=== PATIENT | male | born 1930 | race Caucasian/White ===

== ENCOUNTER → 2016-10-04 | Outpatient (CLI) | payer OTHER ==
[~2016-10-04] MED LIST: ACET-1138 PO; AMLO-110 PO; APR25 PO; ASPI325T39 PO; CRAN1CAP15 PO; ERGO500037 PO; FLAX100024 PO; FLUO0.0566 TOP; FRRG PO; LISI-729 PO; METO1TAB71 PO; MULT-506 PO; NITR0.4S SL; SIMV40TA2 PO; [UNRECOGNIZED DRUG - CODE] PO
[2016-10-04 14:45] LABS: HEMATOCRIT 34.1 % (42-52); MEAN CELL VOLUME 82.4 fL (80-100); MEAN CORPUSCULAR HEMOGLOBIN 27.5 pg (25-34); MEAN CORPUSCULAR HGB CONC 33.4 g/dl (32-36); MEAN PLATELET VOLUME 9.2 fL (7.4-10.4); PLATELET COUNT 181 K/uL (130-400); RED BLOOD COUNT 4.14 M/uL (4.7-6.1); WHITE BLOOD COUNT 8.46 K/uL (4.8-10.8)
[2016-10-04 15:07] LABS: ESTIMATED AVERAGE GLUCOSE 120 mg/dl; HA1C FLAG Normal (Normal)
[2016-10-04 15:52] LABS: URINE APPEARANCE CLOUDY (CLEAR); URINE BILIRUBIN NEG (NEG); URINE COLOR YELLOW; URINE EPITHELIAL CELL AUTO 0-5 /lpf (0-5); URINE NITRITE NEG (NEG); URINE SPECIFIC GRAVITY 1.013 (1.000-1.030); UROBILINOGEN NEG (NEG)
[2016-10-04 15:57] LABS: MANUAL MICROSCOPIC REQUIRED? NO; REVIEW REQ? NO
[2016-10-04 17:03] LABS: ALT/SGPT 27 U/L (12-78); BLOOD UREA NITROGEN 30 mg/dl (7-18); BUN/CREATININE RATIO 16.5 (10-20); CALCIUM 9.5 mg/dl (8.5-10.1); CARBON DIOXIDE 25 mmol/L (21-32); CHLORIDE 106 mmol/L (98-107); GLUCOSE 115 mg/dl (70-99); POTASSIUM 4.8 mmol/L (3.5-5.1); SODIUM 141 mmol/L (136-145)
[2016-10-04 17:10] LABS: ALB/GLOB RATIO 1.1 (0.9-2); ALKALINE PHOSPHATASE 74 U/L (45-117); AST/SGOT 13 U/L (15-37); CHOLESTEROL 202 mg/dl (0-200); CHOLESTEROL/HDL RATIO 3.2; HDL CHOLESTEROL 63 mg/dl; LDL CHOLESTEROL CALCULATED 82 mg/dl; TRIGLYCERIDES 283 mg/dl (0-150); VERY LOW DENSITY LIPOPROT CALC 57 mg/dl
[2016-10-04 17:44] LABS: URINE TOTAL PROTEIN < 5.0 mg/dl (0-11.9)
== END | disposition home or self-care (01) ==
LOC: C.LAB1850 13:34
PROVIDERS: ATTEND Internal Medicine
DX: I12.9 Hypertensive chronic kidney disease with stage 1 through stage 4 chronic kidney disease, or unspecified chronic kidney disease (principal); N18.3 Chronic kidney disease, stage 3 (moderate); D64.9 Anemia, unspecified; R80.9 Proteinuria, unspecified; E55.9 Vitamin D deficiency, unspecified; E78.5 Hyperlipidemia, unspecified; R73.09 Other abnormal glucose

== ENCOUNTER 2019-01-04 00:53 | Inpatient (IN) ==
[2019-01-04 02:01] LABS: Hematocrit (blood only) 24.1 % (42-52); Hemoglobin 7.9 g/dL (14.0-18.0); Mean Corpuscular Hgb Conc 32.8 g/dL (32-36); Mean Corpuscular Volume 82.5 fL (80-100); Platelet Count 154 K/uL (130-400); RDW Coefficient of Variation 15.1 % (11.5-14.5); RDW Standard Deviation 45.7 fL (36.4-46.3); Red Blood Count 2.92 M/uL (4.7-6.1); White Blood Count 13.48 K/uL (4.8-10.8)
[2019-01-04 02:24] LABS: Alanine Aminotransferase 26 U/L (12-78); Albumin Level 3.1 gm/dl (3.4-5.0); Aspartate Aminotransferase 46 U/L (15-37); Blood Urea Nitrogen 48 mg/dl (7-18); Calcium 8.6 mg/dl (8.5-10.1); Carbon Dioxide 18 mmol/L (21-32); Chloride 109 mmol/L (98-107); Creatinine Clr Calc Pharmacy 13.7 ml/min; Est GFR (African American) 14.3; Est GFR (Non-African American) 12.4; Glucose 185 mg/dl (70-99); Magnesium 2.5 mg/dl (1.8-2.4); Potassium 4.7 mmol/L (3.5-5.1); Sodium 135 mmol/L (136-145)
[2019-01-04] MEDS ORDERED: AZITHROMYCIN 250 MG TAB PO ONE (02:24)
[2019-01-04] MEDS ORDERED: cefTRIAXone SODIUM 1,000 MG/50 ML BAG IV STA (02:24)
[2019-01-04 02:26] LABS: Basophils # (auto) 0.01 K/uL (0-0.2); Basophils % (auto) 0.1 %; Eosinophils # (auto) 0.01 K/uL (0-0.5); Eosinophils % (auto) 0.1 %; Immature Granulocytes # (auto) 0.05 K/uL (0.00-0.02); Immature Granulocytes % (auto) 0.4 %; Lymphocytes # (auto) 0.58 K/uL (1.2-3.4); Lymphocytes % (auto) 4.3 %; Monocytes % (auto) 7.4 %; Neutrophils # (auto) 11.83 K/uL (1.4-6.5); Neutrophils % (auto) 87.7 %; Ovalocytes 1+; Spherocytes Occasional
[2019-01-04] MEDS ORDERED: SODIUM CHLORIDE 0.9% 1000ML 1,000 ML IV SCH (02:30)
[2019-01-04 02:33] LABS: Albumin Globulin Ratio 0.8 (0.9-2); Alkaline Phosphatase 95 U/L (45-117); Globulin 4.1 gm/dl (2.5-4.0); NT Pro B Type Natriuretic Pept > 35000 pg/ml (0-1800); Total Protein 7.2 gm/dl (6.4-8.2)
[2019-01-04] MEDS ORDERED: ASPIRIN 325 MG ECTAB PO STA (03:02)
[2019-01-04] MEDS ORDERED: ALUMINUM/MAGNESIUM SUSP 30 ML UDC PO PRN (04:48)
[2019-01-04] MEDS ORDERED: GLUCOSE 40% GEL 15 GM TUBE PO PRN (04:48)
[2019-01-04] MEDS ORDERED: POLYETHYLENE (MIRALAX) 17 GM PACK PO PRN (04:48)
[2019-01-04] MEDS ORDERED: GLUCAGON FOR INJ 1 MG VIAL SQ PRN (04:48)
[2019-01-04] MEDS ORDERED: ACETAMINOPHEN 325 MG TAB PO PRN (04:48)
[2019-01-04] MEDS ORDERED: DEXTROSE 50% 50 ML SYRINGE IV PRN (04:48)
[2019-01-04] MEDS ORDERED: NITROGLYCERIN SL 0.4 MG/TAB TAB SL PRN ×2 (04:48)
[2019-01-04] MEDS ORDERED: GLUCOSE 10 TABS/TUBE PO PRN (04:48)
[2019-01-04] MEDS ORDERED: ONDANSETRON INJ 2 MG/ML 2 ML VIAL IV PRN ×2 (04:48)
[2019-01-04] MEDS ORDERED: MAGNESIUM HYDROXIDE SUSP 30 ML UDC PO PRN (04:48)
[2019-01-04] MEDS ORDERED: ACETAMINOPHEN 1000 MG/100 ML IV IV PRN (04:48)
[2019-01-04] MEDS ORDERED: PIPERACILL/TAZOBAC CONSULT ACTIVE PRN (04:48)
[2019-01-04] MEDS ORDERED: CARBOHYDRATES FOR HYPOGLYCEMIA PO PRN (04:48)
[2019-01-04] MEDS ORDERED: PIPERACILLIN/TAZOBACTAM 3.375 GM in DEXTROSE 5% 100 ML IV SCH ×2 (06:00→16:00)
--- NOTE | 2019-01-04 06:21 | XRay Report ---
XR chest 2V routine CLINICAL HISTORY: sob, cough dyspnea COMPARISON STUDY: 07/28/2016 FINDINGS: Permanent bipolar cardiac pacemaker/fibrillator. Diffuse parenchymal infiltrative change ri ght and 2 masses extent left hemithorax. Diaphragms are smooth. Pulmonary apices are clear. IMPRESSION: Asymmetric pulmonary edema versus diffuse right lung infiltrate. The above report was generated using voice recognition software. It may contain grammatical, syntax or spelling errors. Electronically signed by: Harshil Goff M.D. 01/04/2019 6:19 AM
[2019-01-04 06:25] LABS: Estimated Average Glucose 103 mg/dl; Hemoglobin A1C 5.2 % (4.5-5.6)
--- NOTE | 2019-01-04 06:58 | History & Physical Report ---
Date of Service January 04, 2019 Assessment & Plan (1) Acute respiratory failure with hypoxia: Acute respiratory failure with hypoxia/multifocal pneumonia/possible aspiration- Zosyn 3.375 mg IV every 8 hours. Azithromycin 500 mg IV daily. Guaifenesin extended release 600 mg p.o. twice daily. Duonebs every 4 hours while awake and every 2 hours when necessary. Sputum Gram stain and culture. Nasal cannula 2 L oxygen, titrate to keep pulse ox greater than or equal to 94%. Pulmicort Respules 0.5 mg inhaled twice daily. Solu-Medrol 20 mg IV every 8 hours. Present on Admission?: Yes (2) Multifocal pneumonia: As above. 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 Troponin on admission 9.280. EKG with atrial paced rhythm. He was given aspirin 325 mg in the ED. Aspirin 81 mg p.o. daily. Metoprolol succinate 200 mg p.o. daily changing 100 mg p.o. twice daily with hold parameters. Amlodipine being decreased from 10 to 5 mg p.o. daily with hold parameters. Nitroglycerin sublingual as needed. Consult cardiology Present on Admission?: Yes (4) Pacemaker: As above. Present on Admission?: Yes (5) Acute kidney injury superimposed on chronic kidney disease: Creatinine 4.04 upon admission. Most recent creatinine from 08/25/2018 was 3.36. May be a cause of and caused by low hemoglobin. Order iron, B12 and folate studies. Order renal ultrasound. Consult nephrology. Present on Admission?: Yes (6) Hyperlipidemia LDL goal <70: Continue simvastatin 40 mg p.o. every evening Present on Admission?: Yes (7) Anemia: Hemoglobin 7.9 upon admission. Type and screen. Hemoccults. No signs of acute blood loss or chronic blood loss. May be an element of anemia chronic disease, secondary to kidney disease. Present on Admission?: Yes (8) Diabetes mellitus type 2 with complications: Patient does not appear to be on any active treatment at this time. Check hemoglobin A1c. Placed on Accu-Cheks before meals and at bedtime with NovoLog coverage per scale. Present on Admission?: Yes (9) Hypertension: See above. Present on Admission?: Yes History of Present Illness Chief Complaint: The patient presents to the emergency department with worsening shortness of breath over the past 3 days. Primary Care Provider: Raul Lemos MD The patient is an 88-year-old male with a PMH including CAD, status post ME, status post pacer for third-degree AV block, hypertension, CKD stage III, colon cancer, dyslipidemia, diabetes mellitus type 2 left total knee arthroplasty, who presents to the emergency department with progressively worsening shortness of breath over the past 3 days. Allergies Allergy/AdvReac Type Severity Reaction Status Date / Time morphine AdvReac Severe SOB, Verified 01/04/19 01:28 Respiratory distress Home Medications Home Medications Medication Instructions Recorded Confirmed Type amlodipine 10 mg PO DAILY 01/04/19 01/04/19 History cranberry conc-ascorbic acid 1 cap PO DAILY 01/04/19 01/04/19 History [Cranberry Plus Vitamin C] ergocalciferol (vitamin D2) 50,000 unit PO DIRECTED 01/04/19 01/04/19 History [Vitamin D2] ferrous gluconate 324 mg PO BIDM 01/04/19 01/04/19 History flaxseed oil 1,000 mg PO DAILY 01/04/19 01/04/19 History metoprolol succinate 200 mg PO DAILY 01/04/19 01/04/19 History multivitamin 1 tab PO DAILY 01/04/19 01/04/19 History nitroglycerin 0.4 mg SUBLINGUAL DIRECTED PRN 01/04/19 01/04/19 History simvastatin 40 mg PO PM 01/04/19 01/04/19 History Past Med/Surg History Medical History Pacemaker Arthritis Hyperlipidemia Hypertension Kidney stones Myocardial Infarction Surgical History History of left knee replacement (Resolved) History of cardiac cath Family History Other Family history non-contributory Social History Preferred Language: Pashto Communication Ability: Effective Marketing Representative Required: No Beliefs That Will Affect Care: None Current Living Situation: Spouse and Family Other Information That Helps Us Care for You: No Feels Safe at Home: Yes Safety Concerns: Feels Safe At This Time Smoking Status: Former smoker Hx Alcohol Use: Yes Hx Substance Use: No Review of Systems Review of Systems: The patient denies chest pain, palpitations, cough, lower extremity swelling, sore throat, fevers, chills, sweats, weight change, nausea, vomiting, diarrhea , constipation, abdominal pain, pelvic pain, blood in urine or stool, dysuria, urinary frequency or urgency, lightheadedness, dizziness, headache, loss of consciousness, rash, abnormal bruising or bleeding, imbalance, focal weakness, numbness or tingling in arms or legs, generalized arthralgias or myalgias, back or neck pain, or night sweats. The review of systems is otherwise negative other than for that already noted above, and at least 10 systems have been reviewed. Physical Exam Physical Exam: The patient is awake, alert and oriented 3, well developed and well nourished, normocephalic and atraumatic, lying in bed and in no acute distress. HEENT--PERRL, EOMI, mucous membranes and oropharynx dry. Neck--supple. No JVD. No bruits. Thyroid normal, trachea midline, no adenopathy. Heart--normal S1 and S2. No murmurs, rubs or gallops. Lungs--coarse breath sounds bilaterally with wheezes right greater than left. No respiratory distress, no accessory muscle use. Abdomen--normal bowel sounds and soft. Nontender. Nondistended. Extremities--no cyanosis or clubbing. No edema. There are good distal pulses b/l. Dermatologic--normal skin turgor, normal color, no abnormal lymph nodes, no rash. Neurologic--cranial nerves II through XII grossly intact. Rheumatologic--normal range of motion. Psychiatric--normal affect. Results & Data Vital Signs (Past 12 Hours) Vital Signs Temp Pulse Pulse Resp BP BP Pulse Ox 01/04/19 04:41 97.9 F 88 22 148/65 H 96 01/04/19 04:20 86 22 94 01/04/19 04:10 90 23 94 01/04/19 04:00 82 21 95 01/04/19 03:50 86 21 95 01/04/19 03:40 89 9 L 97 01/04/19 03:30 88 23 96 01/04/19 03:25 87 18 137/62 96 01/04/19 03:20 89 20 95 01/04/19 03:10 91 H 20 97 01/04/19 03:00 89 21 95 01/04/19 02:50 89 20 96 01/04/19 02:49 89 21 137/62 96 01/04/19 02:40 90 21 94 01/04/19 02:32 88 89 27 H 138/60 138/60 93 01/04/19 02:31 90 27 H 147/67 H 95 01/04/19 02:30 92 H 23 93 01/04/19 02:20 90 23 92 01/04/19 02:10 91 H 21 92 01/04/19 02:01 99 H 19 158/65 H 95 01/04/19 02:00 100 H 23 95 01/04/19 01:58 106 H 24 94 01/04/19 01:44 96 01/04/19 01:40 96 H 23 92 01/04/19 01:31 100 H 23 144/53 H 92 01/04/19 01:30 101 H 22 93 01/04/19 01:20 101 H 23 93 01/04/19 01:10 101 H 25 H 92 01/04/19 01:02 107 H 25 H 96 01/04/19 01:01 98.4 F 108 H 24 158/75 H 97 Laboratory Results Laboratory Results WBC 13.48 K/uL (4.8-10.8) H 01/04/19 01:49 RBC 2.92 M/uL (4.7-6.1) L 01/04/19 01:49 Hgb 7.9 g/dL (14.0-18.0) L 01/04/19 01:49 Hct 24.1 % (42-52) L 01/04/19 01:49 MCV 82.5 fL (80-100) 01/04/19 01:49 MCH 27.1 pg (25-34) 01/04/19 01:49 MCHC 32.8 g/dL (32-36) 01/04/19 01:49 RDW Std Deviation 45.7 fL (36.4-46.3) 01/04/19 01:49 RDW Coeff of Katherine 15.1 % (11.5-14.5) H 01/04/19 01:49 Plt Count 154 K/uL (130-400) 01/04/19 01:49 MPV 9.0 fL (7.4-10.4) 01/04/19 01:49 Immature Gran % (Auto) 0.4 % 01/04/19 01:49 Neut % (Auto) 87.7 % 01/04/19 01:49 Lymph % (Auto) 4.3 % 01/04/19 01:49 [place] % (Auto) 7.4 % 01/04/19 01:49 Eos % (Auto) 0.1 % 01/04/19 01:49 Baso % (Auto) 0.1 % 01/04/19 01:49 Immature Gran # (Auto) 0.05 K/uL (0.00-0.02) H 01/04/19 01:49 Neut # (Auto) 11.83 K/uL (1.4-6.5) H 01/04/19 01:49 Lymph # (Auto) 0.58 K/uL (1.2-3.4) L 01/04/19 01:49 [place] # (Auto) 1.00 K/uL (0.11-0.59) H 01/04/19 01:49 Eos # (Auto) 0.01 K/uL (0-0.5) 01/04/19 01:49 Baso # (Auto) 0.01 K/uL (0-0.2) 01/04/19 01:49 Spherocytes Occasional 01/04/19 01:49 Ovalocytes 1+ 01/04/19 01:49 Sodium 135 mmol/L (136-145) L 01/04/19 01:49 Potassium 4.7 mmol/L (3.5-5.1) 01/04/19 01:49 Chloride 109 mmol/L (98-107) H 01/04/19 01:49 Carbon Dioxide 18 mmol/L (21-32) L 01/04/19 01:49 Anion Gap 8.0 (3-11) 01/04/19 01:49 BUN 48 mg/dl (7-18) H 01/04/19 01:49 Creatinine 4.04 mg/dl (0.6-1.4) H 01/04/19 01:49 Est Cr Clr Drug Dosing 13.7 ml/min 01/04/19 01:49 Est GFR ( Amer) 14.3 01/04/19 01:49 Est GFR (Non-Af Amer) 12.4 01/04/19 01:49 BUN/Creatinine Ratio 12.0 (10-20) 01/04/19 01:49 Glucose 185 mg/dl (70-99) H 01/04/19 01:49 Estimat Average Glucose 103 mg/dl 01/04/19 05:49 Hemoglobin A1c 5.2 % (4.5-5.6) 01/04/19 05:49 Calcium 8.6 mg/dl (8.5-10.1) 01/04/19 01:49 Magnesium 2.5 mg/dl (1.8-2.4) H 01/04/19 01:49 Total Bilirubin 1.0 mg/dl (0.2-1) 01/04/19 01:49 AST 46 U/L (15-37) H 01/04/19 01:49 ALT 26 U/L (12-78) 01/04/19 01:49 Alkaline Phosphatase 95 U/L (45-117) 01/04/19 01:49 Troponin I 9.280 ng/ml (0-0.045) H* 01/04/19 01:49 NT-Pro-B Natriuret Pep > 52992 pg/ml (0-1800) H 01/04/19 01:49 Total Protein 7.2 gm/dl (6.4-8.2) 01/04/19 01:49 Albumin 3.1 gm/dl (3.4-5.0) L 01/04/19 01:49 Globulin 4.1 gm/dl (2.5-4.0) H 01/04/19 01:49 Albumin/Globulin Ratio 0.8 (0.9-2) L 01/04/19 01:49 Lipase 60 U/L (73-393) L 01/04/19 01:49 Procalcitonin 14.56 ng/ml (0-0.5) H 01/04/19 01:46 Code Status & VTE Plan Code Status Full code VTE Prophylaxis Plan VTE Prophylaxis will be ordered: Yes
[2019-01-04] MEDS: methylPREDNISolone 20 MG in SYRINGE 0 ML IV SCH ×3 (07:46→21:02)
[2019-01-04] MEDS: FERROUS GLUCONATE 324 MG TAB PO SCH ×2 (07:47→16:59)
[2019-01-04] MEDS: INSULIN ASPART 100 UNITS/ML 3 ML PEN SC SCH ×4 (07:56→21:37)
[2019-01-04] MEDS: guaiFENesin 600 MG TABCR PO SCH ×2 (07:59→21:03)
[2019-01-04] MEDS: AMLODIPINE BESYLATE 5 MG TAB PO SCH (07:59)
[2019-01-04] MEDS: MULTIVITAMIN TAB PO SCH (07:59)
[2019-01-04] MEDS: METOPROLOL SUCC 50MG EXT REL TAB PO SCH ×2 (08:18→21:03)
[2019-01-04] MEDS ORDERED: NON-FORMULARY MEDICATION (Cranberry Conc-Ascorbic Acid [Cranberry Plus Vitamin C] 1 CAP) PO SCH (09:00)
[2019-01-04] MEDS ORDERED: METOPROLOL SUCC 50MG EXT REL TAB PO SCH (09:00)
[2019-01-04] MEDS ORDERED: ASPIRIN 81 MG ECTAB PO SCH (09:00)
[2019-01-04 09:49] LABS: Folate (Folic Acid) 21.89 ng/ml (>5.38)
[2019-01-04] MEDS: ALBUT/IPRATROP 3MG/0.5MG NEB 3 ML VIAL NEB SCH ×4 (09:51→19:13)
[2019-01-04] MEDS: BUDESONIDE 0.5 MG/2 ML VIAL (PULMICORT) NEB SCH (09:51)
--- NOTE | 2019-01-04 10:34 | Nephrology Consultation ---
Date of Consultation January 04, 2019 Assessment & Plan (1) Acute kidney injury superimposed on chronic kidney disease: 88 y o m with stage 3B/ 4 chronic kidney disease admitted to the hospital with non STEMI and possible multifocal pneumonia. Found to have acute kidney injury on admission creatinine was 4.0 with baseline creatinine lately staying around 3.0. Has history of high-grade proteinuria. 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 Acute kidney injury most likely hemodynamically mediated with NSTEMI and possible pneumonia. However with underlying advanced CKD, it could be progression of CKD as well. Reports taking NSAIDs over last few days. Has not been on any diuretics. --avoid further IV fluid --continue hemodynamics support --avoid all NSAIDs --dose antibiotics for GFR less than 30 --monitor renal function and electrolyte daily --hopefully renal function will stabilize with hemodynamics support however he does have risk factors for rapid worsening of renal function --with non STEMI, if there is any plan for cardiac catheterization, would recom mend waiting until renal function stabilize as patient seems to be asymptomatic now. Considering advanced CKD, proteinuria patient have high risk for contrast induced nephropathy and possible need for dialysis in near future Will follow Thank you for allowing me to participate in your patient's care. It was a pleasure to see Luis Alberto -- (2) CKD (chronic kidney disease) stage 4, GFR 15-29 ml/min: (3) Anemia: (4) Multifocal pneumonia: (5) NSTEMI (non-ST elevated myocardial infarction): History of Present Illness Reason for Consultation: Acute kidney injury with history of advanced CKD. Attending Physician: Nir Chicas DO History of Present Illness Mr. Gatica Is a 88-year-old gentlemen with past medical history significant for hypertension, coronary artery disease cardiomyopathy and stage 3B/4 chronic kidney disease admitted to the hospital with non STEMI. He was found to have acute kidney injury. Nephrology consult was requested for further management of acute kidney injury. Electronic medical records including labs and imaging are reviewed in detail during patient's visit. Luis Alberto has history of coronary artery disease and cardiomyopathy, status post AICD and pacemaker. He was presented to the hospital with shortness of breath for 3 days. On admission he was found to have elevated troponin at 9.2 and elevated BUN more than 35,000. Chest x-ray was concerning for right lung infiltrate, suggestive of possible pneumonia,, ? Aspiration. Was started on empiric antibiotic. Repeat troponin remained stable. EKG showed paced rhythm. Currently he reports shortness of breath slightly improved compared to admission. Denies any chest pain. History of stage IIIB/4 chronic kidney disease baseline creatinine has been around 2-2.5, last creatinine was 3.4 on 08/20/2018. On admission creatinine was 4.0. Has been non-oliguric. Electrolyte has been acceptable. Does have history of high-grade proteinuria. Reports taking NSAIDs over last few days. Has not been on any diuretics. Allergies Allergy/AdvReac Type Severity Reaction Status Date / Time morphine AdvReac Severe SOB, Verified 01/04/19 01:28 Respiratory distress Home Medications Home Medications Medication Instructions Recorded Confirmed Type amlodipine 10 mg PO DAILY 01/04/19 01/04/19 History cranberry conc-ascorbic acid 1 cap PO DAILY 01/04/19 01/04/19 History [Cranberry Plus Vitamin C] ergocalciferol (vitamin D2) 50,000 unit PO DIRECTED 01/04/19 01/04/19 History [Vitamin D2] ferrous gluconate 324 mg PO BIDM 01/04/19 01/04/19 History flaxseed oil 1,000 mg PO DAILY 01/04/19 01/04/19 History metoprolol succinate 200 mg PO DAILY 01/04/19 01/04/19 History multivitamin 1 tab PO DAILY 01/04/19 01/04/19 History nitroglycerin 0.4 mg SUBLINGUAL DIRECTED PRN 01/04/19 01/04/19 History simvastatin 40 mg PO PM 01/04/19 01/04/19 History Patient History Medical History Pacemaker Arthritis Hyperlipidemia Hypertension Kidney stones Myocardial Infarction Surgical History History of left knee replacement (Resolved) History of cardiac cath Family History Other Family history non-contributory Social History Preferred Language: Mongolian Communication Ability: Effective Orthopedic Shoes Salesperson Required: No Beliefs That Will Affect Care: None Current Living Situation: Spouse and Family Other Information That Helps Us Care for You: No Feels Safe at Home: Yes Safety Concerns: Feels Safe At This Time Smoking Status: Former smoker Hx Alcohol Use: Yes Hx Substance Use: No Review of Systems Review of Systems: Detailed review of system was otherwise unremarkable except pertinent positive and negative findings mention above in history of present illness. Physical Exam Physical Exam: GENERAL: elderly male, AAA x 3, pleasant, not in any distress. HEENT: Atraumatic, normocephalic. NECK: Supple, no JVD, no carotid bruit appreciated. ENT: No sinus tenderness MOUTH and THROAT: Moist oral mucosa, RESPIRATORY: Normal breathing efforts, clear to auscultation bilaterally. CARDIOVASCULAR: S1, S2 normal, rate rhythm regular. ABDOMEN: Soft, nontender, positive bowel sound. MUSCULOSKELETAL: No joint swelling, erythema or tenderness. Normal range of motion. SKIN: No skin rash EXTREMITY: No lower extremity edema NEURO: No gross focal neurological deficit, speech fluent. PSYCHIATRY: Normal mood and judgment Results & Data Vital Signs (Past 12 Hours) Vital Signs Temp Pulse Pulse Resp BP BP BP 01/04/19 07:01 36.8 C 82 20 134/64 01/04/19 06:19 81 01/04/19 04:41 36.6 C 88 22 148/65 H 01/04/19 04:20 86 22 01/04/19 04:10 90 23 01/04/19 04:00 82 21 01/04/19 03:50 86 21 01/04/19 03:40 89 9 L 01/04/19 03:30 88 23 01/04/19 03:25 87 18 137/62 01/04/19 03:20 89 20 01/04/19 03:10 91 H 20 01/04/19 03:00 89 21 01/04/19 02:50 89 20 01/04/19 02:49 89 21 137/62 01/04/19 02:40 90 21 01/04/19 02:32 88 89 27 H 138/60 138/60 01/04/19 02:31 90 27 H 147/67 H 01/04/19 02:30 92 H 23 01/04/19 02:20 90 23 01/04/19 02:10 91 H 21 01/04/19 02:01 99 H 19 158/65 H 01/04/19 02:00 100 H 23 01/04/19 01:58 106 H 24 01/04/19 01:44 01/04/19 01:40 96 H 23 01/04/19 01:31 100 H 23 144/53 H 01/04/19 01:30 101 H 22 01/04/19 01:20 101 H 23 01/04/19 01:10 101 H 25 H 01/04/19 01:02 107 H 25 H 01/04/19 01:01 36.9 C 108 H 24 158/75 H Pulse Ox 01/04/19 07:01 92 01/04/19 06:19 01/04/19 04:41 96 01/04/19 04:20 94 01/04/19 04:10 94 01/04/19 04:00 95 01/04/19 03:50 95 01/04/19 03:40 97 01/04/19 03:30 96 01/04/19 03:25 96 01/04/19 03:20 95 01/04/19 03:10 97 01/04/19 03:00 95 01/04/19 02:50 96 01/04/19 02:49 96 01/04/19 02:40 94 01/04/19 02:32 93 01/04/19 02:31 95 01/04/19 02:30 93 01/04/19 02:20 92 01/04/19 02:10 92 01/04/19 02:01 95 01/04/19 02:00 95 01/04/19 01:58 94 01/04/19 01:44 96 01/04/19 01:40 92 01/04/19 01:31 92 01/04/19 01:30 93 01/04/19 01:20 93 01/04/19 01:10 92 01/04/19 01:02 96 01/04/19 01:01 97
[2019-01-04] MEDS ORDERED: SODIUM CHLORIDE 0.9% 250 ML IV PRN (16:35)
--- NOTE | 2019-01-04 16:56 | Cardiology Consultation ---
Date of Consultation January 04, 2019 Assessment & Plan (1) Elevated troponin: He does have a significantly elevated troponin, much higher than we typically see. It is in a descending pattern which is inconsistent with an acute myocardial infarction. It is conceivable that he had a microinfarction several days ago which would explain his left ventricular wall motion abnormalities as well as his descending troponin. I would recommend repeating several more troponin measurements, to make sure this trend continues. (2) Pacemaker: His pacemaker was recently evaluated in the office and was working well but needs to be replaced soon. He is actually scheduled for device replacement January 16, 2019. We may want to replace his device while he is here, but with his pneumonia and antibiotics I certainly would not do it now and the device is functioning properly currently. (3) Cardiomyopathy: He has a newly diagnosed cardiomyopathy based on his presenting echocardiogram. This could be consistent with a recent myocardial infarction or possibly demand ischemia perhaps the setting of underlying coronary artery disease. I would not do anything now, when he recovers from his current event we could consider repeat echocardiography and possibly stress testing. With his elevated creatinine I would not want to do angiography now. History of Present Illness Attending Physician: Nir Chicas, History of Present Illness This is a very pleasant 88 to-year-old gentleman who has a history of coronary artery disease identified in early 2010 when he had a myocardial infarction. Catheterization at that time demonstrated a chronically occluded right coronary artery and otherwise nonocclusive coronary disease. His ejection fraction however was markedly reduced in the 30% range. 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 He also has a history of pacemaker implantation, this was implanted for second degree heart block (although that has probably progressed) on August 02, 2005. He paces almost all of the time in the ventricle due to his heart block. He had been treated with medications for left ventricular dysfunction including good doses of lisinopril and metoprolol succinate and an ejection fraction remained 30% or less. He did not have exertional angina, he did have difficulty with exertion which sounds as though it is shortness of breath and it limited his activities. He probably had class III heart failure symptoms although he does not have orthopnea or PND or peripheral edema. He has never had lightheadedness, dizziness, presyncope or syncope. Since he met criteria both for ICD implantation for primary prevention of sudden cardiac as well as biventricular pacing we upgraded his device to a biventricular ICD on 09/21/2012. We did use the original atrial lead. An echocardiogram done in August 2013 demonstrated significant left ventricular improvement with an ejection fraction of about 45%. As of July 29, 2016 that had normalized. I just saw him in the office on January 01, 2019 and he was doing well, he had no complaints. He now presents with a several day history of shortness of breath, much worse on admission. He came to the emergency room and was found to have pneumonia and was admitted. He was observed to have elevated troponin. At the time of my evaluation he was feeling much better, he had less shortness of breath and on presentation and he denies having chest discomfort either before admission or after. He had no palpitations or symptoms referable to his pacemaker. Allergies Allergy/AdvReac Type Severity Reaction Status Date / Time morphine AdvReac Severe SOB, Verified 01/04/19 01:28 Respiratory distress Home Medications Home Medications Medication Instructions Recorded Confirmed Type amlodipine 10 mg PO DAILY 01/04/19 01/04/19 History cranberry conc-ascorbic acid 1 cap PO DAILY 01/04/19 01/04/19 History [Cranberry Plus Vitamin C] ergocalciferol (vitamin D2) 50,000 unit PO DIRECTED 01/04/19 01/04/19 History [Vitamin D2] ferrous gluconate 324 mg PO BIDM 01/04/19 01/04/19 History flaxseed oil 1,000 mg PO DAILY 01/04/19 01/04/19 History metoprolol succinate 200 mg PO DAILY 01/04/19 01/04/19 History multivitamin 1 tab PO DAILY 01/04/19 01/04/19 History nitroglycerin 0.4 mg SUBLINGUAL DIRECTED PRN 01/04/19 01/04/19 History simvastatin 40 mg PO PM 01/04/19 01/04/19 History Patient History Medical History Pacemaker Arthritis Hyperlipidemia Hypertension Kidney stones Myocardial Infarction Surgical History History of left knee replacement (Resolved) History of cardiac cath Family History Other Family history non-contributory Social History Preferred Language: Spanish Communication Ability: Effective Beliefs That Will Affect Care: None Current Living Situation: Spouse and Family Feels Safe at Home: Yes Smoking Status: Former smoker Hx Alcohol Use: Yes Hx Substance Use: No Physical Exam Physical Exam: Constitutional: Alert, cooperative and in no distress. HEENT: Unremarkable Neck: No jugular venous distention, carotid pulses are normal and equal bilaterally without bruits. Pulmonary: Crackles at both bases on auscultation. Cardiac: Regular rhythm with no murmur, gallop or rub. Abdomen: Soft, nontender with normal bowel sounds. Extremities: No edema. Distal pulses intact. Neurologic: No focal findings. Gait is steady. Skin: No rash, ecchymoses or petechiae. Results & Data Vital Signs (Past 12 Hours) Vital Signs Temp Pulse Pulse Resp BP Pulse Ox 01/04/19 15:33 36.7 C 78 19 149/71 H 94 01/04/19 15:30 87 92 01/04/19 14:20 79 01/04/19 12:59 67 18 97 01/04/19 11:02 36.6 C 79 20 144/70 H 98 01/04/19 07:01 36.8 C 82 20 134/64 92 01/04/19 06:19 81 Diagnostic Findings His electrocardiogram on admission demonstrates sinus tachycardia at 110 bpm with a ventricular paced complex. An echocardiogram done January 04, 2019 shows normal left ventricular size with an ejection fraction of 50% with akinesis of the mid inferolateral wall as well as hypokinesis of the inferolateral and basal inferior anderson. There is mild mitral regurgitation. The ejection fraction is somewhat reduced compared to July 29, 2016 where it was 55 to 60% with no wall motion abnormalities. Telemetry: Sinus tachycardia in sinus rhythm, no significant abnormality
[2019-01-04] MEDS: AMPICILLIN/SULBACTAM SOD 1,500 MG in 0.9 % SODIUM CHLORIDE 100 ML IV SCH ×2 (18:27→23:52)
--- NOTE | 2019-01-04 18:55 | Family Medicine Progress Note ---
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 Acute respiratory failure with hypoxia: multifocal pneumonia/possible aspiration given infilitrates R sided Sputum Gram stain and culture pending Received Zosyn and azithromycin initially Started on Unasyn and azithromycin Guaifenesin extended release 600 mg p.o. twice daily. Duonebs every 4 hours while awake and every 2 hours when necessary Pulmicort Respules 0.5 mg inhaled twice daily. Solu-Medrol 20 mg IV every 8 hours. 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 Aspirin 81 mg p.o. daily - hold for concern for GI bleed/anemia Metoprolol succinate 200 mg p.o. daily changed to 100 mg p.o. twice daily with hold parameters Amlodipine being decreased from 10 to 5 mg p.o. daily with hold parameters Nitroglycerin sublingual as needed Consult cardiology Acute kidney injury superimposed on chronic kidney disease: Creatinine 4.04 upon admission. Most recent creatinine from 08/25/2018 was 3.36 Order renal ultrasound. Consult nephrology. Anemia: acute vs. chronic from CKD Hemoglobin 7.9 on admission -> this PM 7.2 -repeat Hgb at midnight Type and cross with 2 units of pRBC on hold No signs of acute blood loss Possible melena based on report of dark stools Hemoccults pending Diabetes mellitus type 2 Hemoglobin A1c - 5.2 Placed on Accu-Cheks before meals and at bedtime with NovoLog coverage per scale HLD Continue simvastatin 40 mg p.o. every evening DVT prop: SCDs, no chemical given anemia and concern for bleeding Code: Full Dispo: pending further clinical work up (9) Pacemaker: Supervising Physician Co-Signing Physician Notes I personally examined the patient and verified all trevino points of history and exam, discussed case, and agree with decision making with Dr Wells. Seen in follow-up from early a.m. admit. Breathing better feeling better. Vitals noted, in general in no distress he is fatigued. Breathing unlabored no accessory muscle use. Right-sided pneumonia more than likely community-acquired versus aspirationcontinue current antibiotics NSTEMImore than likely related to physiologic stress from above superimposed on known coronary disease. Asymptomatic now, troponin trending down, continue to follow clinically/med management. CKD stage IVcontinue to follow. Anemiafollow hemoglobin, heme test stools. Otherwise as above Subjective This AM pt reported some sob while resting in bed. Also reports dark stool thinks from eating blue berries. otherwise denied any f/c, cough, headache, dizziness, cp, abdominal pain, n/v, diarrhea/constipation, dysuria, hematuria. When examined this afternoon, he reported coughing now and bringing phlegm up which helped his sob and he was on RA at that point Review of Systems Review of Systems: As per HPI Physical Exam Physical Exam: General: In NAD, appears tired CV: RRR, no m/r/g PULM: R sided wheezing appreciated, diminished BS over R lung [place] compared to L ABDOMEN: +BS, non-distended, non-tender to palpation in all quadrants LE: no calf TTP, no LE edema Results & Data Vital Signs (Past 12 Hours) Vital Signs Temp Pulse Pulse Resp BP Pulse Ox 01/04/19 15:33 36.7 C 78 19 149/71 H 94 01/04/19 15:30 87 92 01/04/19 14:20 79 01/04/19 12:59 67 18 97 01/04/19 11:02 36.6 C 79 20 144/70 H 98 01/04/19 07:01 36.8 C 82 20 134/64 92 Laboratory Results Abnormal lab results 01/04/19 01/04/19 01/04/19 Range/Units 01:46 01:49 01:49 WBC 13.48 H (4.8-10.8) K/uL RBC 2.92 L (4.7-6.1) M/uL Hgb 7.9 L (14.0-18.0) g/dL Hct 24.1 L (42-52) % RDW Coeff of Katherine 15.1 H (11.5-14.5) % Immature Gran # (Auto) 0.05 H (0.00-0.02) K/uL Neut # (Auto) 11.83 H (1.4-6.5) K/uL Lymph # (Auto) 0.58 L (1.2-3.4) K/uL [place] # (Auto) 1.00 H (0.11-0.59) K/uL Sodium 135 L (136-145) mmol/L Chloride 109 H (98-107) mmol/L Carbon Dioxide 18 L (21-32) mmol/L BUN 48 H (7-18) mg/dl Creatinine 4.04 H (0.6-1.4) mg/dl Glucose 185 H (70-99) mg/dl POC Glucose (70-99) Magnesium 2.5 H (1.8-2.4) mg/dl TIBC (250-450) mcg/dl AST 46 H (15-37) U/L Troponin I 9.280 H* (0-0.045) ng/ml NT-Pro-B Natriuret Pep > 56497 H (0-1800) pg/ml Albumin 3.1 L (3.4-5.0) gm/dl Globulin 4.1 H (2.5-4.0) gm/dl Albumin/Globulin Ratio 0.8 L (0.9-2) Lipase 60 L (73-393) U/L Procalcitonin 14.56 H (0-0.5) ng/ml Crossmatch 01/04/19 01/04/19 01/04/19 Range/Units 05:49 07:05 08:28 WBC (4.8-10.8) K/uL RBC (4.7-6.1) M/uL Hgb (14.0-18.0) g/dL Hct (42-52) % RDW Coeff of Katherine (11.5-14.5) % Immature Gran # (Auto) (0.00-0.02) K/uL Neut # (Auto) (1.4-6.5) K/uL Lymph # (Auto) (1.2-3.4) K/uL [place] # (Auto) (0.11-0.59) K/uL Sodium (136-145) mmol/L Chloride (98-107) mmol/L Carbon Dioxide (21-32) mmol/L BUN (7-18) mg/dl Creatinine (0.6-1.4) mg/dl Glucose (70-99) mg/dl POC Glucose 197 H (70-99) Magnesium (1.8-2.4) mg/dl TIBC 179 L (250-450) mcg/dl AST (15-37) U/L Troponin I 8.670 H* (0-0.045) ng/ml NT-Pro-B Natriuret Pep (0-1800) pg/ml Albumin (3.4-5.0) gm/dl Globulin (2.5-4.0) gm/dl Albumin/Globulin Ratio (0.9-2) Lipase (73-393) U/L Procalcitonin (0-0.5) ng/ml Crossmatch 01/04/19 01/04/19 01/04/19 Range/Units 11:07 16:00 16:19 WBC (4.8-10.8) K/uL RBC (4.7-6.1) M/uL Hgb (14.0-18.0) g/dL Hct (42-52) % RDW Coeff of Katherine (11.5-14.5) % Immature Gran # (Auto) (0.00-0.02) K/uL Neut # (Auto) (1.4-6.5) K/uL Lymph # (Auto) (1.2-3.4) K/uL [place] # (Auto) (0.11-0.59) K/uL Sodium (136-145) mmol/L Chloride (98-107) mmol/L Carbon Dioxide (21-32) mmol/L BUN (7-18) mg/dl Creatinine (0.6-1.4) mg/dl Glucose (70-99) mg/dl POC Glucose 141 H 180 H (70-99) Magnesium (1.8-2.4) mg/dl TIBC (250-450) mcg/dl AST (15-37) U/L Troponin I 8.370 H* (0-0.045) ng/ml NT-Pro-B Natriuret Pep (0-1800) pg/ml Albumin (3.4-5.0) gm/dl Globulin (2.5-4.0) gm/dl Albumin/Globulin Ratio (0.9-2) Lipase (73-393) U/L Procalcitonin (0-0.5) ng/ml Crossmatch 01/04/19 01/04/19 Range/Units 16:53 16:53 WBC (4.8-10.8) K/uL RBC (4.7-6.1) M/uL Hgb 7.2 L (14.0-18.0) g/dL Hct (42-52) % RDW Coeff of Katherine (11.5-14.5) % Immature Gran # (Auto) (0.00-0.02) K/uL Neut # (Auto) (1.4-6.5) K/uL Lymph # (Auto) (1.2-3.4) K/uL [place] # (Auto) (0.11-0.59) K/uL Sodium (136-145) mmol/L Chloride (98-107) mmol/L Carbon Dioxide (21-32) mmol/L BUN (7-18) mg/dl Creatinine (0.6-1.4) mg/dl Glucose (70-99) mg/dl POC Glucose (70-99) Magnesium (1.8-2.4) mg/dl TIBC (250-450) mcg/dl AST (15-37) U/L Troponin I (0-0.045) ng/ml NT-Pro-B Natriuret Pep (0-1800) pg/ml Albumin (3.4-5.0) gm/dl Globulin (2.5-4.0) gm/dl Albumin/Globulin Ratio (0.9-2) Lipase (73-393) U/L Procalcitonin (0-0.5) ng/ml Crossmatch See Detail Diagnostic Findings XR chest 2V routine CLINICAL HISTORY: sob, cough dyspnea COMPARISON STUDY: 07/28/2016 FINDINGS: Permanent bipolar cardiac pacemaker/fibrillator. Diffuse parenchymal infiltrative change right and 2 masses extent left hemithorax. Diaphragms are smooth. Pulmonary apices are clear. IMPRESSION: Asymmetric pulmonary edema versus diffuse right lung infiltrate. Medications Administered Current Inpatient Medications Acetaminophen (Ofirmev) 1,000 mg IV Q8H PRN PRN Reason: Pain or Fever Stop: 02/03/19 04:47 Acetaminophen (Tylenol) 650 mg PO Q4H PRN PRN Reason: Pain or Fever Stop: 02/03/19 04:47 Al Hydrox/Mg Hydrox/Simethicone (Maalox) 15 ml PO Q4H PRN PRN Reason: Dyspepsia Stop: 02/03/19 04:47 Albuterol (Duoneb) 3 ml NEB QIDR [facility] Stop: 02/03/19 07:59 Last Admin: 01/04/19 19:13 Dose: 3 ml Documented by: Amlodipine Besylate (Norvasc) 5 mg PO DAILY [facility] Stop: 02/03/19 08:59 Last Admin: 01/04/19 07:59 Dose: 5 mg Documented by: Aspirin (Ecotrin Ectab) 81 mg PO QAM [facility] Stop: 02/03/19 08:59 Last Admin: 01/04/19 07:59 Dose: 81 mg Documented by: Budesonide (Pulmicort Respules) 0.5 mg NEB BIDR [facility] Stop: 02/03/19 07:59 Last Admin: 01/04/19 09:51 Dose: Not Given Documented by: Dextrose (Dextrose 50%) 25 - 50 ml IV UD PRN; Protocol PRN Reason: Hypoglycemia Protocol Stop: 02/03/19 04:47 Ferrous Gluconate (Ferrous Gluconate) 324 mg PO BIDM [facility] Stop: 02/03/19 07:59 Last Admin: 01/04/19 16:59 Dose: 324 mg Documented by: Glucagon (Glucagen) 1 mg SQ UD PRN; Protocol PRN Reason: Hypoglycemia Protocol Stop: 02/03/19 04:47 Glucose (Glucose 40%) 15 - 30 gm PO UD PRN; Protocol PRN Reason: Hypoglycemia Protocol Stop: 02/03/19 04:47 Glucose (Dex4 Glucose) 4 - 8 tabs PO UD PRN; Protocol PRN Reason: Hypoglycemia Protocol Stop: 02/03/19 04:47 Guaifenesin (Mucinex) 600 mg PO Q12 [facility] Stop: 02/03/19 08:59 Last Admin: 01/04/19 07:59 Dose: 600 mg Documented by: Azithromycin 500 mg/ Dextrose 255 mls @ 125 mls/hr IV Q24H [facility] Stop: 01/12/19 00:00 Methylprednisolone 20 mg/ (Syringe) 0.32 mls @ 1.5 mls/min IV Q8H [facility] Stop: 02/03/19 05:59 Last Admin: 01/04/19 13:45 Dose: 1.5 mls/min Documented by: Ampicillin Sodium/Sulbactam Sodium 1,500 mg/ Sodium Chloride 104 mls @ 200 mls/hr IV Q6H [facility]; Protocol Stop: 01/11/19 17:59 Last Admin: 01/04/19 18:27 Dose: 200 mls/hr Documented by: Sodium Chloride (Nss) 250 mls @ 15 mls/hr IV .[id number] PRN PRN Reason: For Transfusion Stop: 02/03/19 16:34 Insulin Aspart (Novolog Flexpen) 0 units SC ACHS [facility] Stop: 02/03/19 07:29 Last Admin: 01/04/19 16:59 Dose: 6 units Documented by: Magnesium Hydroxide (Milk Of Magnesia) 30 ml PO Q12H PRN PRN Reason: Constipation Stop: 02/03/19 04:47 Metoprolol Succinate (Toprol Xl) 100 mg PO BID [facility] Stop: 02/03/19 08:59 Last Admin: 01/04/19 08:18 Dose: 100 mg Documented by: Miscellaneous (Carbohydrates For Hypoglycemia) 15 - 30 gm PO UD PRN PRN Reason: Hypoglycemia Treatment Stop: 02/03/19 04:47 Multivitamins (Multivitamin Tab) 1 tab PO DAILY [facility] Stop: 02/03/19 08:59 Last Admin: 01/04/19 07:59 Dose: 1 tab Documented by: Nitroglycerin (Nitrostat) 0.4 mg SL UD PRN PRN Reason: Chest Pain Stop: 02/03/19 04:47 Ondansetron HCl (Zofran) 4 mg IV Q6H PRN PRN Reason: Nausea Stop: 02/03/19 04:47 Polyethylene Glycol (Miralax Powder Packet) 17 gm PO DAILY PRN PRN Reason: Constipation Stop: 02/03/19 04:47 Simvastatin (Zocor) 40 mg PO PM [facility] Stop: 02/03/19 20:59 Resident Activity Tracking Resident Involvement: Resident Care Provided Care Provided: Adult Hospital Medicine
[2019-01-04] MEDS ORDERED: SIMVASTATIN 40 MG TAB PO SCH (21:00)
[2019-01-04] MEDS: AZITHROMYCIN 500 MG in DEXTROSE 5% 250 ML IV SCH (23:53)
[2019-01-05] MEDS ORDERED: SODIUM CHLORIDE 0.9% 250 ML IV PRN (00:08)
--- NOTE | 2019-01-05 04:56 | Emergency Department Note ---
Entered by Howard Ledbetter acting as a scribe for Sally Ji DO History of Present Illness General Chief complaint: Shortness of Breath/Dyspnea Stated complaint: SHORT OF BREATH Time Seen by Provider: 01/04/19 01:07 Source: patient and family History of Present Illness Onset (ago): hour(s) (this morning) Location: chest Pain Consistency: + intermittent Quality: + other (rale/sob) Associated symptoms: + denies other symptoms (stuffy nose, runny nose), + w eakness and + other (fatigue, decreased appetite); no fever/chills The patient is an 88 y/o male who presents to the ED w/ CC of intermittent shortness of breath beginning this morning. The patient states "I got a rale and suspected I had pneumonia". He reports the "rale" is intermittent and was fine when he called the nursing hotline. The patient's daughter notes she checked on him again last night, and his breathing had worsening. She states he had gurgly breathing and shortness of breath. The patient reports he is also more fatigued and weak with minimal swelling of his legs. He notes he has back pain, but he has a history of throwing out his back. The patient states he has not had much of an appetite the past two days and did not eat much. He reports he is to see Dr. Luna, orthopedics for consult about a right knee replacement. The patient's daughter states he was evaluated by Dr. Alfaro, Cardiology two days ago for a pacemaker evaluation. She reports he is to have a new pacemaker placed on the of this month because his pacemaker dropped from 2.6V to 2.3V. The daughter notes he never had CHF or pneumonia. He denies fever, chills, stuffy nose, runny nose, wearing oxygen at home, and using breathing treatments at home. Home Medications Home Medications Medication Instructions Recorded Confirmed Type amlodipine 10 mg PO DAILY 01/04/19 01/04/19 History cranberry conc-ascorbic acid 1 cap PO DAILY 01/04/19 01/04/19 History [Cranberry Plus Vitamin C] ergocalciferol (vitamin D2) 50,000 unit PO DIRECTED 01/04/19 01/04/19 History [Vitamin D2] ferrous gluconate 324 mg PO BIDM 01/04/19 01/04/19 History flaxseed oil 1,000 mg PO DAILY 01/04/19 01/04/19 History metoprolol succinate 200 mg PO DAILY 01/04/19 01/04/19 History multivitamin 1 tab PO DAILY 01/04/19 01/04/19 History nitroglycerin 0.4 mg SUBLINGUAL DIRECTED PRN 01/04/19 01/04/19 History simvastatin 40 mg PO PM 01/04/19 01/04/19 History Allergies Allergy/AdvReac Type Severity Reaction Status Date / Time morphine AdvReac Severe SOB, Verified 01/04/19 01:28 Respiratory distress Past Med/Surg History Medical History Pacemaker Arthritis Hyperlipidemia Hypertension Kidney stones Myocardial Infarction Surgical History History of left knee replacement (Resolved) History of cardiac cath Family History Other Family history non-contributory Social History Preferred Language: Maltese Communication Ability: Effective Beliefs That Will Affect Care: None Current Living Situation: Spouse and Family Feels Safe at Home: Yes Smoking Status: Former smoker Hx Alcohol Use: Yes Hx Substance Use: No Review of Systems See HPI for pertinent positives & negatives. and A total of 10 systems reviewed and were otherwise negative Physical Exam Vital Signs Vital Signs - 24 hr 01/04/19 07:01 01/04/19 08:00 01/04/19 11:02 Temperature 36.8 C 36.6 C Temperature Source Oral Oral Pulse Rate Pulse Rate [Right] 82 79 Pulse Rhythm [Right] Pulse Strength [Right] Respiratory Rate 20 20 Respiratory Effort / Characteristics Respiratory Depth Respiratory Pattern Blood Pressure Blood Pressure [Left Arm] 134/64 144/70 H Blood Pressure Mean Blood Pressure Mean [Left Arm] 87 94 Blood Pressure Position Blood Pressure Position [Left Arm] Lying Lying Pulse Oximetry 92 98 Oxygen Delivery Method Nasal Cannula Nasal Cannula Oxygen Flow Rate 2.0 2 2.0 01/04/19 12:59 01/04/19 14:20 01/04/19 15:30 Temperature Temperature Source Pulse Rate 79 Pulse Rate [Right] 67 87 Pulse Rhythm [Right] Pulse Strength [Right] Respiratory Rate 18 Respiratory Effort / Characteristics Non-Labored Non-Labored Respiratory Depth Respiratory Pattern Blood Pressure Blood Pressure [Left Arm] Blood Pressure Mean Blood Pressure Mean [Left Arm] Blood Pressure Position Blood Pressure Position [Left Arm] Pulse Oximetry 97 92 Oxygen Delivery Method Nasal Cannula Room Air Oxygen Flow Rate 3 01/04/19 15:33 01/04/19 19:14 01/04/19 20:18 Temperature 36.7 C 36.9 C Temperature Source Oral Oral Pulse Rate Pulse Rate [Right] 78 76 77 Pulse Rhythm [Right] Regular Pulse Strength [Right] Normal Respiratory Rate 19 18 18 Respiratory Effort / Characteristics Non-Labored Non-Labored Spontaneous Respiratory Depth Normal Respiratory Pattern Blood Pressure Blood Pressure [Left Arm] 149/71 H 143/65 H Blood Pressure Mean Blood Pressure Mean [Left Arm] 97 91 Blood Pressure Position Blood Pressure Position [Left Arm] Lying Semi-fowlers Pulse Oximetry 94 92 92 Oxygen Delivery Method Room Air Room Air Oxygen Flow Rate 01/04/19 21:00 01/04/19 23:22 01/05/19 01:21 Temperature 36.9 C 36.7 C Temperature Source Oral Oral Pulse Rate 68 Pulse Rate [Right] 70 Pulse Rhythm [Right] Pulse Strength [Right] Respiratory Rate 20 18 Respiratory Effort / Characteristics Non-Labored Spontaneous Respiratory Depth Normal Respiratory Pattern Regular Blood Pressure 142/69 H Blood Pressure [Left Arm] 137/61 Blood Pressure Mean 93 Blood Pressure Mean [Left Arm] 86 Blood Pressure Position Lying Blood Pressure Position [Left Arm] Lying Pulse Oximetry 93 93 Oxygen Delivery Method Room Air Room Air Oxygen Flow Rate 01/05/19 01:26 01/05/19 01:30 01/05/19 01:35 Temperature 36.7 C 36.5 C 36.9 C Temperature Source Oral Oral Oral Pulse Rate 71 71 71 Pulse Rate [Right] Pulse Rhythm [Right] Pulse Strength [Right] Respiratory Rate 18 18 18 Respiratory Effort / Characteristics Respiratory Depth Respiratory Pattern Blood Pressure 146/73 H 134/67 139/78 Blood Pressure [Left Arm] Blood Pressure Mean 97 89 98 Blood Pressure Mean [Left Arm] Blood Pressure Position Lying Lying Lying Blood Pressure Position [Left Arm] Pulse Oximetry 92 92 92 Oxygen Delivery Method Oxygen Flow Rate 01/05/19 01:37 01/05/19 02:10 01/05/19 02:22 Temperature 36.8 C 36.6 C 36.8 C Temperature Source Oral Oral Oral Pulse Rate 68 69 67 Pulse Rate [Right] Pulse Rhythm [Right] Pulse Strength [Right] Respiratory Rate 22 18 20 Respiratory Effort / Characteristics Respiratory Depth Respiratory Pattern Blood Pressure 133/66 144/72 H 148/72 H Blood Pressure [Left Arm] Blood Pressure Mean 88 96 97 Blood Pressure Mean [Left Arm] Blood Pressure Position Lying Lying Lying Blood Pressure Position [Left Arm] Pulse Oximetry 92 92 95 Oxygen Delivery Method Oxygen Flow Rate 93 01/05/19 02:40 01/05/19 04:32 01/05/19 04:48 Temperature 36.4 C L 36.6 C 36.5 C Temperature Source Oral Oral Oral Pulse Rate 70 68 68 Pulse Rate [Right] Pulse Rhythm [Right] Pulse Strength [Right] Respiratory Rate 16 16 16 Respiratory Effort / Characteristics Respiratory Depth Respiratory Pattern Blood Pressure 137/70 147/72 H 149/70 H Blood Pressure [Left Arm] Blood Pressure Mean 92 97 96 Blood Pressure Mean [Left Arm] Blood Pressure Position Lying Lying Lying Blood Pressure Position [Left Arm] Pulse Oximetry 94 94 94 Oxygen Delivery Method Oxygen Flow Rate 01/05/19 04:55 01/05/19 05:00 01/05/19 05:18 Temperature 36.4 C L 36.6 C 36.8 C Temperature Source Oral Oral Oral Pulse Rate 68 70 70 Pulse Rate [Right] Pulse Rhythm [Right] Pulse Strength [Right] Respiratory Rate 16 16 22 Respiratory Effort / Characteristics Respiratory Depth Respiratory Pattern Blood Pressure 135/63 141/64 H 155/73 H Blood Pressure [Left Arm] Blood Pressure Mean 87 89 100 Blood Pressure Mean [Left Arm] Blood Pressure Position Lying Lying Lying Blood Pressure Position [Left Arm] Pulse Oximetry 95 95 95 Oxygen Delivery Method Oxygen Flow Rate 01/05/19 05:30 01/05/19 06:00 01/05/19 06:30 Temperature 36.8 C 36.8 C 36.7 C Temperature Source Oral Oral Oral Pulse Rate 69 70 71 Pulse Rate [Right] Pulse Rhythm [Right] Pulse Strength [Right] Respiratory Rate 16 16 17 Respiratory Effort / Characteristics Respiratory Depth Respiratory Pattern Blood Pressure 155/76 H 157/67 H 144/81 H Blood Pressure [Left Arm] Blood Pressure Mean 102 97 102 Blood Pressure Mean [Left Arm] Blood Pressure Position Lying Lying Lying Blood Pressure Position [Left Arm] Pulse Oximetry 94 93 94 Oxygen Delivery Method Oxygen Flow Rate GENERAL: alert, well appearing, well nourished, no distress, non-toxic EYE EXAM: normal conjunctiva, PERRL and EOM's grossly intact OROPHARYNX: no exudate, no erythema, lips, buccal mucosa, and tongue normal and mucous membranes are mildly dry. NECK: supple, no nuchal rigidity, no adenopathy, non-tender LUNGS: Right-sided rales and rhonchi. Normal chest wall mechanics HEART: no murmurs, S1 normal and S2 normal ABDOMEN: abdomen soft, non-tender, normo-active bowel sounds, no masses, no rebound or guarding. BACK: Back is symmetrical on inspection and there is no deformity, no midline tenderness, no CVA tenderness. SKIN: no rashes and no bruising UPPER EXTREMITIES: upper extremities are grossly normal. FROM, nml pulses b/l. LOWER EXTREMITIES: Trace LE edema. FROM, nml pulses b/l. NEURO EXAM: Normal sensorium, cranial nerves II-XII grossly intact, normal speech, no gross weakness of arms, no gross weakness of legs. Course 0120: The patient was evaluated in room C07. A complete history and physical exam was performed. 0237: Upon reevaluation, I discussed findings and results with him. He verbalized agreement of the treatment plan. I spoke with Dr. Lora of the [facility] Hospitalist Service. The patient will be evaluated for further management and care. Administered Medications Albuterol (Duoneb) 3 ml NEB QIDR [facility] Stop: 02/03/19 07:59 Last Admin: 01/04/19 19:13 Dose: 3 ml Documented by: [id number] Admin: 01/04/19 15:28 Dose: 3 ml Documented by: [id number] Admin: 01/04/19 12:58 Dose: 3 ml Documented by: [id number] Admin: 01/04/19 09:51 Dose: Not Given Documented by: [id number] Amlodipine Besylate (Norvasc) 5 mg PO DAILY [facility] Stop: 02/03/19 08:59 Last Admin: 01/04/19 07:59 Dose: 5 mg Documented by: [id number] Aspirin (Ecotrin Ectab) 81 mg PO QAM [facility] Stop: 02/03/19 08:59 Last Admin: 01/04/19 07:59 Dose: 81 mg Documented by: [id number] Budesonide (Pulmicort Respules) 0.5 mg NEB BIDR [facility] Stop: 02/03/19 07:59 Last Admin: 01/04/19 09:51 Dose: Not Given Documented by: [id number] Ferrous Gluconate (Ferrous Gluconate) 324 mg PO BIDM [facility] Stop: 02/03/19 07:59 Last Admin: 01/04/19 16:59 Dose: 324 mg Documented by: [id number] Admin: 01/04/19 07:47 Dose: 324 mg Documented by: [id number] Guaifenesin (Mucinex) 600 mg PO Q12 [facility] Stop: 02/03/19 08:59 Last Admin: 01/04/19 21:03 Dose: 600 mg Documented by: [id number] Admin: 01/04/19 07:59 Dose: 600 mg Documented by: [id number] Azithromycin 500 mg/ Dextrose 255 mls @ 125 mls/hr IV Q24H [facility] Stop: 01/12/19 00:00 Last Infusion: 01/05/19 02:11 Dose: 0 mls/hr Documented by: [id number] Admin: 01/04/19 23:53 Dose: 125 mls/hr Documented by: [id number] Methylprednisolone 20 mg/ (Syringe) 0.32 mls @ 1.5 mls/min IV Q8H [facility] Stop: 02/03/19 05:59 Last Admin: 01/05/19 06:12 Dose: 1.5 mls/min Documented by: [id number] Admin: 01/04/19 21:02 Dose: 1.5 mls/min Documented by: [id number] Admin: 01/04/19 13:45 Dose: 1.5 mls/min Documented by: [id number] Admin: 01/04/19 07:46 Dose: 1.5 mls/min Documented by: [id number] Ampicillin Sodium/Sulbactam Sodium 1,500 mg/ Sodium Chloride 104 mls @ 200 mls/hr IV Q6H [facility]; Protocol Stop: 01/11/19 17:59 Last Admin: 01/05/19 06:12 Dose: 200 mls/hr Documented by: [id number] Infusion: 01/05/19 00:35 Dose: 0 mls/hr Documented by: [id number] Admin: 01/04/19 23:52 Dose: 200 mls/hr Documented by: [id number] Infusion: 01/04/19 20:48 Dose: 0 mls/hr Documented by: [id number] Admin: 01/04/19 18:27 Dose: 200 mls/hr Documented by: [id number] Insulin Aspart (Novolog Flexpen) 0 units SC ACHS [facility] Stop: 02/03/19 07:29 Last Admin: 01/04/19 21:37 Dose: Not Given Documented by: [id number] Cosigned by: [id number] Admin: 01/04/19 16:59 Dose: 6 units Documented by: [id number] Cosigned by: [id number] Admin: 01/04/19 11:58 Dose: 2 units Documented by: [id number] Cosigned by: [id number] Admin: 01/04/19 07:56 Dose: 5 units Documented by: [id number] Cosigned by: [id number] Metoprolol Succinate (Toprol Xl) 100 mg PO BID [facility] Stop: 02/03/19 08:59 Last Admin: 01/04/19 21:03 Dose: 100 mg Documented by: [id number] Admin: 01/04/19 08:18 Dose: 100 mg Documented by: [id number] Multivitamins (Multivitamin Tab) 1 tab PO DAILY [facility] Stop: 02/03/19 08:59 Last Admin: 01/04/19 07:59 Dose: 1 tab Documented by: [id number] Simvastatin (Zocor) 40 mg PO PM [facility] Stop: 02/03/19 20:59 Last Admin: 01/04/19 21:03 Dose: 40 mg Documented by: [id number] Discontinued Medications Aspirin (Ecotrin) 325 mg PO NOW STA Stop: 01/04/19 03:03 Last Admin: 01/04/19 03:31 Dose: 325 mg Documented by: [id number] Azithromycin (Zithromax) 500 mg PO NOW ONE Stop: 01/04/19 02:25 Last Admin: 01/04/19 03:31 Dose: 500 mg Documented by: [id number] Ceftriaxone Sodium (Rocephin) 1,000 mg in 50 mls @ 100 mls/hr IV NOW STA Stop: 01/04/19 02:53 Last Infusion: 01/04/19 04:27 Dose: 0 mls/hr Documented by: [id number] Admin: 01/04/19 03:31 Dose: 100 mls/hr Documented by: [id number] Piperacillin Sod/Tazobactam (Sod 3.375 gm/ Dextrose) 115 mls @ 230 mls/hr IV TODAY@0600 [facility] Stop: 01/04/19 06:29 Last Infusion: 01/04/19 08:28 Dose: 0 mls/hr Documented by: [id number] Admin: 01/04/19 07:46 Dose: 230 mls/hr Documented by: [id number] Piperacillin Sod/Tazobactam (Sod 3.375 gm/ Dextrose) 115 mls @ 28.75 mls/hr IV Q12H [facility]; Protocol Stop: 01/11/19 15:59 Last Infusion: 01/04/19 16:55 Dose: 0 mls/hr Documented by: [id number] Admin: 01/04/19 15:27 Dose: 28.8 mls/hr Documented by: [id number] Medical Decision Making Differential Diagnosis Differential diagnoses includes but is not limited to pneumonia, bronchitis, COPD/Asthma exacerbation, pneumothorax, pulmonary embolism, congestive heart failure, acute coronary syndrome Medical Records Attestation: I reviewed the patient's medical records. Home Medications Current Medication List: was personally reviewed by me Laboratory Data Attestation: I reviewed the patient's lab results. Result diagrams: 01/04/19 23:38 01/04/19 01:49 Lab Results 01/04/19 01/04/19 01/04/19 Range/Units 01:46 01:49 01:49 WBC 13.48 H (4.8-10.8) K/uL RBC 2.92 L (4.7-6.1) M/uL Hgb 7.9 L (14.0-18.0) g/dL Hct 24.1 L (42-52) % MCV 82.5 (80-100) fL MCH 27.1 (25-34) pg MCHC 32.8 (32-36) g/dL RDW Std Deviation 45.7 (36.4-46.3) fL RDW Coeff of Katherine 15.1 H (11.5-14.5) % Plt Count 154 (130-400) K/uL MPV 9.0 (7.4-10.4) fL Immature Gran % (Auto) 0.4 % Neut % (Auto) 87.7 % Lymph % (Auto) 4.3 % Edmonson % (Auto) 7.4 % Eos % (Auto) 0.1 % Baso % (Auto) 0.1 % Immature Gran # (Auto) 0.05 H (0.00-0.02) K/uL Neut # (Auto) 11.83 H (1.4-6.5) K/uL Lymph # (Auto) 0.58 L (1.2-3.4) K/uL Edmonson # (Auto) 1.00 H (0.11-0.59) K/uL Eos # (Auto) 0.01 (0-0.5) K/uL Baso # (Auto) 0.01 (0-0.2) K/uL Spherocytes Occasional Ovalocytes 1+ Sodium 135 L (136-145) mmol/L Potassium 4.7 (3.5-5.1) mmol/L Chloride 109 H (98-107) mmol/L Carbon Dioxide 18 L (21-32) mmol/L Anion Gap 8.0 (3-11) BUN 48 H (7-18) mg/dl Creatinine 4.04 H (0.6-1.4) mg/dl Est Cr Clr Drug Dosing 13.7 ml/min Est GFR ( Amer) 14.3 Est GFR (Non-Af Amer) 12.4 BUN/Creatinine Ratio 12.0 (10-20) Glucose 185 H (70-99) mg/dl POC Glucose (70-99) Estimat Average Glucose mg/dl Hemoglobin A1c (4.5-5.6) % Calcium 8.6 (8.5-10.1) mg/dl Magnesium 2.5 H (1.8-2.4) mg/dl TIBC (250-450) mcg/dl Total Bilirubin 1.0 (0.2-1) mg/dl AST 46 H (15-37) U/L ALT 26 (12-78) U/L Alkaline Phosphatase 95 (45-117) U/L Troponin I 9.280 H* (0-0.045) ng/ml NT-Pro-B Natriuret Pep > 53800 H (0-1800) pg/ml Total Protein 7.2 (6.4-8.2) gm/dl Albumin 3.1 L (3.4-5.0) gm/dl Globulin 4.1 H (2.5-4.0) gm/dl Albumin/Globulin Ratio 0.8 L (0.9-2) Lipase 60 L (73-393) U/L Vitamin B12 (211-911) pg/ml Folate (>5.38) ng/ml Procalcitonin 14.56 H (0-0.5) ng/ml Blood Type Antibody Screen Crossmatch 01/04/19 01/04/19 01/04/19 Range/Units 05:49 05:49 07:05 WBC (4.8-10.8) K/uL RBC (4.7-6.1) M/uL Hgb (14.0-18.0) g/dL Hct (42-52) % MCV (80-100) fL MCH (25-34) pg MCHC (32-36) g/dL RDW Std Deviation (36.4-46.3) fL RDW Coeff of Katherine (11.5-14.5) % Plt Count (130-400) K/uL MPV (7.4-10.4) fL Immature Gran % (Auto) % Neut % (Auto) % Lymph % (Auto) % Edmonson % (Auto) % Eos % (Auto) % Baso % (Auto) % Immature Gran # (Auto) (0.00-0.02) K/uL Neut # (Auto) (1.4-6.5) K/uL Lymph # (Auto) (1.2-3.4) K/uL Edmonson # (Auto) (0.11-0.59) K/uL Eos # (Auto) (0-0.5) K/uL Baso # (Auto) (0-0.2) K/uL Spherocytes Ovalocytes Sodium (136-145) mmol/L Potassium (3.5-5.1) mmol/L Chloride (98-107) mmol/L Carbon Dioxide (21-32) mmol/L Anion Gap (3-11) BUN (7-18) mg/dl Creatinine (0.6-1.4) mg/dl Est Cr Clr Drug Dosing ml/min Est GFR ( Amer) Est GFR (Non-Af Amer) BUN/Creatinine Ratio (10-20) Glucose (70-99) mg/dl POC Glucose 197 H (70-99) Estimat Average Glucose 103 mg/dl Hemoglobin A1c 5.2 (4.5-5.6) % Calcium (8.5-10.1) mg/dl Magnesium (1.8-2.4) mg/dl TIBC (250-450) mcg/dl Total Bilirubin (0.2-1) mg/dl AST (15-37) U/L ALT (12-78) U/L Alkaline Phosphatase (45-117) U/L Troponin I 8.670 H* (0-0.045) ng/ml NT-Pro-B Natriuret Pep (0-1800) pg/ml Total Protein (6.4-8.2) gm/dl Albumin (3.4-5.0) gm/dl Globulin (2.5-4.0) gm/dl Albumin/Globulin Ratio (0.9-2) Lipase (73-393) U/L Vitamin B12 (211-911) pg/ml Folate (>5.38) ng/ml Procalcitonin (0-0.5) ng/ml Blood Type Antibody Screen Crossmatch 01/04/19 01/04/19 01/04/19 Range/Units 08:28 08:28 11:07 WBC (4.8-10.8) K/uL RBC (4.7-6.1) M/uL Hgb (14.0-18.0) g/dL Hct (42-52) % MCV (80-100) fL MCH (25-34) pg MCHC (32-36) g/dL RDW Std Deviation (36.4-46.3) fL RDW Coeff of Katherine (11.5-14.5) % Plt Count (130-400) K/uL MPV (7.4-10.4) fL Immature Gran % (Auto) % Neut % (Auto) % Lymph % (Auto) % Edmons[place] % (Auto) % Eos % (Auto) % Baso % (Auto) % Immature Gran # (Auto) (0.00-0.02) K/uL Neut # (Auto) (1.4-6.5) K/uL Lymph # (Auto) (1.2-3.4) K/uL Edmonson # (Auto) (0.11-0.59) K/uL Eos # (Auto) (0-0.5) K/uL Baso # (Auto) (0-0.2) K/uL Spherocytes Ovalocytes Sodium (136-145) mmol/L Potassium (3.5-5.1) mmol/L Chloride (98-107) mmol/L Carbon Dioxide (21-32) mmol/L Anion Gap (3-11) BUN (7-18) mg/dl Creatinine (0.6-1.4) mg/dl Est Cr Clr Drug Dosing ml/min Est GFR ( Amer) Est GFR (Non-Af Amer) BUN/Creatinine Ratio (10-20) Glucose (70-99) mg/dl POC Glucose 141 H (70-99) Estimat Average Glucose mg/dl Hemoglobin A1c (4.5-5.6) % Calcium (8.5-10.1) mg/dl Magnesium (1.8-2.4) mg/dl TIBC 179 L (250-450) mcg/dl Total Bilirubin (0.2-1) mg/dl AST (15-37) U/L ALT (12-78) U/L Alkaline Phosphatase (45-117) U/L Troponin I (0-0.045) ng/ml NT-Pro-B Natriuret Pep (0-1800) pg/ml Total Protein (6.4-8.2) gm/dl Albumin (3.4-5.0) gm/dl Globulin (2.5-4.0) gm/dl Albumin/Globulin Ratio (0.9-2) Lipase (73-393) U/L Vitamin B12 503 (211-911) pg/ml Folate 21.89 (>5.38) ng/ml Procalcitonin (0-0.5) ng/ml Blood Type Antibody Screen Crossmatch 01/04/19 01/04/19 01/04/19 Range/Units 16:00 16:19 16:53 WBC (4.8-10.8) K/uL RBC (4.7-6.1) M/uL Hgb 7.2 L (14.0-18.0) g/dL Hct (42-52) % MCV (80-100) fL MCH (25-34) pg MCHC (32-36) g/dL RDW Std Deviation (36.4-46.3) fL RDW Coeff of Katherine (11.5-14.5) % Plt Count (130-400) K/uL MPV (7.4-10.4) fL Immature Gran % (Auto) % Neut % (Auto) % Lymph % (Auto) % [place]mons[place] % (Auto) % Eos % (Auto) % Baso % (Auto) % Immature Gran # (Auto) (0.00-0.02) K/uL Neut # (Auto) (1.4-6.5) K/uL Lymph # (Auto) (1.2-3.4) K/uL [place] # (Auto) (0.11-0.59) K/uL Eos # (Auto) (0-0.5) K/uL Baso # (Auto) (0-0.2) K/uL Spherocytes Ovalocytes Sodium (136-145) mmol/L Potassium (3.5-5.1) mmol/L Chloride (98-107) mmol/L Carbon Dioxide (21-32) mmol/L Anion Gap (3-11) BUN (7-18) mg/dl Creatinine (0.6-1.4) mg/dl Est Cr Clr Drug Dosing ml/min Est GFR ( Amer) Est GFR (Non-Af Amer) BUN/Creatinine Ratio (10-20) Glucose (70-99) mg/dl POC Glucose 180 H (70-99) Estimat Average Glucose mg/dl Hemoglobin A1c (4.5-5.6) % Calcium (8.5-10.1) mg/dl Magnesium (1.8-2.4) mg/dl TIBC (250-450) mcg/dl Total Bilirubin (0.2-1) mg/dl AST (15-37) U/L ALT (12-78) U/L Alkaline Phosphatase (45-117) U/L Troponin I 8.370 H* (0-0.045) ng/ml NT-Pro-B Natriuret Pep (0-1800) pg/ml Total Protein (6.4-8.2) gm/dl Albumin (3.4-5.0) gm/dl Globulin (2.5-4.0) gm/dl Albumin/Globulin Ratio (0.9-2) Lipase (73-393) U/L Vitamin B12 (211-911) pg/ml Folate (>5.38) ng/ml Procalcitonin (0-0.5) ng/ml Blood Type Antibody Screen Crossmatch 01/04/19 01/04/19 01/04/19 Range/Units 16:53 20:31 23:38 WBC (4.8-10.8) K/uL RBC (4.7-6.1) M/uL Hgb 6.8 L* (14.0-18.0) g/dL Hct (42-52) % MCV (80-100) fL MCH (25-34) pg MCHC (32-36) g/dL RDW Std Deviation (36.4-46.3) fL RDW Coeff of Katherine (11.5-14.5) % Plt Count (130-400) K/uL MPV (7.4-10.4) fL Immature Gran % (Auto) % Neut % (Auto) % Lymph % (Auto) % [place] % (Auto) % Eos % (Auto) % Baso % (Auto) % Immature Gran # (Auto) (0.00-0.02) K/uL Neut # (Auto) (1.4-6.5) K/uL Lymph # (Auto) (1.2-3.4) K/uL [place] # (Auto) (0.11-0.59) K/uL Eos # (Auto) (0-0.5) K/uL Baso # (Auto) (0-0.2) K/uL Spherocytes Ovalocytes Sodium (136-145) mmol/L Potassium (3.5-5.1) mmol/L Chloride (98-107) mmol/L Carbon Dioxide (21-32) mmol/L Anion Gap (3-11) BUN (7-18) mg/dl Creatinine (0.6-1.4) mg/dl Est Cr Clr Drug Dosing ml/min Est GFR ( Amer) Est GFR (Non-Af Amer) BUN/Creatinine Ratio (10-20) Glucose (70-99) mg/dl POC Glucose 132 H (70-99) Estimat Average Glucose mg/dl Hemoglobin A1c (4.5-5.6) % Calcium (8.5-10.1) mg/dl Magnesium (1.8-2.4) mg/dl TIBC (250-450) mcg/dl Total Bilirubin (0.2-1) mg/dl AST (15-37) U/L ALT (12-78) U/L Alkaline Phosphatase (45-117) U/L Troponin I (0-0.045) ng/ml NT-Pro-B Natriuret Pep (0-1800) pg/ml Total Protein (6.4-8.2) gm/dl Albumin (3.4-5.0) gm/dl Globulin (2.5-4.0) gm/dl Albumin/Globulin Ratio (0.9-2) Lipase (73-393) U/L Vitamin B12 (211-911) pg/ml Folate (>5.38) ng/ml Procalcitonin (0-0.5) ng/ml Blood Type O Positive Antibody Screen NEGATIVE Crossmatch See Detail Imaging Data Attestation: I personally reviewed and interpreted this imaging study as follows: My Impression: Chest x ray 1 v: Mild cardiomegaly. No pleural effusion. Patient rotated. Pacemaker noted. Infiltrate noted in the right lung. No wide mediastinum. ECG Data Attestation: I personally reviewed and interpreted this ECG as follows: Indication: SOB/dyspnea Rate (beats per minute): 110 Rhythm: other (AV paced) Findings: + other (No other acute ischemic changes) and + ST depression (V2) Comparison ECG Date: from (05/31/16) Change: the following changes noted Additional Comments: ST depression is new. Blood Pressure Blood Pressure Findings: Elevated blood pressure Blood Pressure Disposition: further management by hospitalist [facility] Narrative Patient here ill-appearing and was concerned about pneumonia. Patient was found to have an infiltrate noted on chest x-ray. Blood cultures drawn and sent and patient started on IV antibiotics. Patient was mildly hypoxic on room air, however remained in the mid 90s with 2 to 3 L via nasal cannula. Patient also with chronic kidney disease, and creatinine tonight slightly elevated compared to baseline. Patient found to have markedly elevated troponin, however no acute EKG changes and patient denied any chest pain or shortness of breath while here. It is possible patient's troponin could be elevated due to infection, chronic kidney disease, as well as demand due to anemia. Patient hemodynamically stable otherwise, I do not suspect sepsis at this time. Given patient's advanced age and comorbidities, patient is high risk for bacteremia/sepsis. Patient and daughter aware of all results and need for additional inpatient evaluation and management. They are in agreement with this plan. I did discuss CODE STATUS with the daughter at bedside, and she stated that she has a copy of his living w ell in the car was going to try and bring it in. Patient did come back later stating she could not find the car and at some point would go home to find it and return with that so we can keep it on file. Patient has not needed any additional airway intervention here, and remains comfortable appearing with the nasal cannula in place. Impression & Plan PNA (pneumonia), Elevated troponin, CKD (chronic kidney disease), Hypoxia, Elevated brain natriuretic peptide (BNP) level Critical Care Time I have personally spent 45 minutes of critical care time in the direct management of this patient. This includes bedside care, interpretation of diagnostic studies, and testing, discussion with consultants, patient, and family members, and other required patient management activities. This 45 minutes is in excess of all separately billable procedures. Critical Care Time: Yes Total Critical Care Time: 45 Discharge Plan Visit Data *Final* Discharge Date/Time: 01/04/19 04:45 Chief Complaint: Shortness of Breath/Dyspnea Stated Complaint: SHORT OF BREATH ED Provider: Sally Ji Discharge Problem: PNA (pneumonia), Elevated troponin, CKD (chronic kidney disease), Hypoxia, Elevated brain natriuretic peptide (BNP) level Patient Disposition: Admitted As Inpatient The scribe's documentation has been prepared under my direction and personally reviewed by me in its entirety. I confirm that the note above accurately reflects all work, treatment, procedures, and medical decision making performed by me.
[2019-01-05] MEDS: AMPICILLIN/SULBACTAM SOD 1,500 MG in 0.9 % SODIUM CHLORIDE 100 ML IV SCH ×2 (06:12→12:22)
[2019-01-05] MEDS: methylPREDNISolone 20 MG in SYRINGE 0 ML IV SCH ×3 (06:12→21:46)
[2019-01-05] MEDS: ALBUT/IPRATROP 3MG/0.5MG NEB 3 ML VIAL NEB SCH ×4 (07:02→19:30)
[2019-01-05] MEDS: BUDESONIDE 0.5 MG/2 ML VIAL (PULMICORT) NEB SCH ×2 (07:03→19:30)
[2019-01-05] MEDS: INSULIN ASPART 100 UNITS/ML 3 ML PEN SC SCH ×4 (07:53→20:13)
[2019-01-05] MEDS: FERROUS GLUCONATE 324 MG TAB PO SCH ×2 (08:06→20:04)
[2019-01-05] MEDS: guaiFENesin 600 MG TABCR PO SCH ×2 (08:06→20:04)
[2019-01-05] MEDS: METOPROLOL SUCC 50MG EXT REL TAB PO SCH ×2 (08:06→20:05)
[2019-01-05] MEDS: MULTIVITAMIN TAB PO SCH (08:06)
[2019-01-05] MEDS: AMLODIPINE BESYLATE 5 MG TAB PO SCH (08:07)
[2019-01-05 08:31] LABS: Hemoglobin 9.6 g/dL (14.0-18.0); Immature Granulocytes # (auto) 0.05 K/uL (0.00-0.02); Immature Granulocytes % (auto) 0.6 %; Lymphocytes # (auto) 0.65 K/uL (1.2-3.4); Lymphocytes % (auto) 8.4 %; Mean Corpuscular Volume 83.1 fL (80-100); Mean Platelet Volume 9.5 fL (7.4-10.4); Monocytes # (auto) 0.31 K/uL (0.11-0.59); Neutrophils # (auto) 6.75 K/uL (1.4-6.5); Platelet Count 156 K/uL (130-400); RDW Standard Deviation 45.8 fL (36.4-46.3); Red Blood Count 3.49 M/uL (4.7-6.1); White Blood Count 7.76 K/uL (4.8-10.8)
[2019-01-05 08:41] LABS: Mean Corpuscular Hgb Conc 33.1 g/dL (32-36)
[2019-01-05 08:51] LABS: Partial Thromboplastin Ratio 1.2; Partial Thromboplastin Time 33.6 Seconds (21.0-31.0); Prothrombin Time 10.6 Seconds (9.0-12.0)
[2019-01-05 08:57] LABS: BUN Creatinine Ratio 16.6 (10-20); Calcium 8.7 mg/dl (8.5-10.1); Creatinine Clr Calc Pharmacy 13.2 ml/min; Est GFR (African American) 15.1; Potassium 4.6 mmol/L (3.5-5.1)
[2019-01-05 08:59] LABS: Reticulocyte % 1.2 % (0.5-2.0); Reticulocytes # 0.04 10^6/uL (0.02-0.10)
[2019-01-05 09:10] LABS: Albumin Globulin Ratio 0.7 (0.9-2); Bilirubin,Total 0.7 mg/dl (0.2-1); Globulin 4.3 gm/dl (2.5-4.0); Total Protein 7.3 gm/dl (6.4-8.2); Troponin I 4.82 ng/ml (0-0.045)
--- NOTE | 2019-01-05 10:05 | Nephrology Progress Note ---
Date of Service January 05, 2019 Assessment & Plan (1) Acute kidney injury superimposed on chronic kidney disease: 88 y o m with stage 3B/ 4 chronic kidney disease admitted to the hospital with non STEMI and possible multifocal pneumonia. Found to have acute kidney injury on admission creatinine was 4.0 with baseline creatinine lately staying around 3.0. Has history of high-grade proteinuria. 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 Acute kidney injury most likely hemodynamically mediated with NSTEMI and possible pneumonia. Renal function slightly better. Non oliguric. Hb better after PRBC --avoid IV fluid --avoid all NSAIDs --dose antibiotics for GFR less than 30 --monitor renal function and electrolyte daily --hopefully renal function will stabilize with hemodynamics support however he does have risk factors for rapid worsening of renal function Will follow -- (2) CKD (chronic kidney disease) stage 4, GFR 15-29 ml/min: (3) Anemia: (4) Multifocal pneumonia: (5) NSTEMI (non-ST elevated myocardial infarction): Subjective Bill was seen and examined in his room this am. Feelign better, denies SOB, CP, F/C. Renal functions lightly better, non oliguric. BP elevated. Physical Exam Constitutional: WD/WN, vitals as above Respiratory: normal respiratory effort, lungs clear to auscultation Cardiovascular: RRR, no murmur, no edema Neurologic: PERRL, EOMI, accommodation nl, no face palsy, no dysarthria Psychiatric: A+Ox3, euthymic affect Results & Data Vital Signs (Past 12 Hours) Vital Signs Temp Pulse Pulse Resp BP BP Pulse Ox 01/05/19 07:51 36.6 C 77 16 167/72 H 97 01/05/19 07:03 68 16 96 01/05/19 06:50 36.4 C L 71 16 161/75 H 96 01/05/19 06:30 36.7 C 71 17 144/81 H 94 01/05/19 06:20 76 01/05/19 06:00 36.8 C 70 16 157/67 H 93 01/05/19 05:30 36.8 C 69 16 155/76 H 94 01/05/19 05:18 36.8 C 70 22 155/73 H 95 01/05/19 05:00 36.6 C 70 16 141/64 H 95 01/05/19 04:55 36.4 C L 68 16 135/63 95 01/05/19 04:48 36.5 C 68 16 149/70 H 94 01/05/19 04:32 36.6 C 68 16 147/72 H 94 01/05/19 02:40 36.4 C L 70 16 137/70 94 01/05/19 02:22 36.8 C 67 20 148/72 H 95 01/05/19 02:10 36.6 C 69 18 144/72 H 92 01/05/19 01:37 36.8 C 68 22 133/66 92 01/05/19 01:35 36.9 C 71 18 139/78 92 01/05/19 01:30 36.5 C 71 18 134/67 92 01/05/19 01:26 36.7 C 71 18 146/73 H 92 01/05/19 01:21 36.7 C 68 18 142/69 H 93 01/04/19 23:22 36.9 C 70 20 137/61 93
--- NOTE | 2019-01-05 14:05 | Cardiology Progress Note ---
Date of Service January 05, 2019 Assessment & Plan (1) Elevated troponin: He does have a significantly elevated troponin, much higher than we typically see. It continues to be a descending pattern which is inconsistent with an acute myocardial infarction. It is conceivable that he had a myocardial infarction several days prior to admission which would explain his left ventricular wall motion abnormalities as well as his descending troponin. We may have to do some type of coronary evaluation but I would not do it at this time given his elevated creatinine. (2) Pacemaker: His pacemaker was recently evaluated in the office and was working well bu t needs to be replaced soon. He is actually scheduled for device replacement January 16, 2019. We may want to replace his device while he is here, but with his pneumonia and antibiotics I certainly would not do it now and the device is functioning properly currently. (3) Cardiomyopathy: He has a newly diagnosed cardiomyopathy based on his presenting echocar diogram. This could be consistent with a recent myocardial infarction or possibly demand ischemia perhaps in the setting of underlying coronary artery disease. I would not do anything now, when he recovers from his current event we could consider repeat echocardiography and possibly stress testing if the ejection fraction remains low. With his elevated creatinine I would not want to do angiography now. Subjective He is feeling better now than he was on admission, he feels that his breathing is improved and he continues to deny chest discomfort. Physical Exam Physical Exam: Constitutional: Alert, cooperative and in no distress. Pulmonary: Decreased breath sounds on auscultation bilaterally. Cardiac: Regular rhythm with no murmur, gallop or rub. Abdomen: Soft, nontender with normal bowel sounds. Extremities: No edema. Skin: No rash, ecchymoses or petechiae. Results & Data Vital Signs (Past 12 Hours) Vital Signs Temp Pulse Pulse Resp BP BP Pulse Ox 01/05/19 12:01 36.4 C L 74 19 164/80 H 100 01/05/19 11:21 71 16 97 01/05/19 10:53 97 01/05/19 07:51 36.6 C 77 16 167/72 H 97 01/05/19 07:03 68 16 96 01/05/19 06:50 36.4 C L 71 16 161/75 H 96 01/05/19 06:30 36.7 C 71 17 144/81 H 94 01/05/19 06:20 76 01/05/19 06:00 36.8 C 70 16 157/67 H 93 01/05/19 05:30 36.8 C 69 16 155/76 H 94 01/05/19 05:18 36.8 C 70 22 155/73 H 95 01/05/19 05:00 36.6 C 70 16 141/64 H 95 01/05/19 04:55 36.4 C L 68 16 135/63 95 01/05/19 04:48 36.5 C 68 16 149/70 H 94 01/05/19 04:32 36.6 C 68 16 147/72 H 94 01/05/19 02:40 36.4 C L 70 16 137/70 94 01/05/19 02:22 36.8 C 67 20 148/72 H 95 01/05/19 02:10 36.6 C 69 18 144/72 H 92 Diagnostic Findings His electrocardiogram today demonstrates sinus rhythm with atrial sensing and ventricular pacing. Telemetry: Sinus rhythm with ventricular paced rhythm.
--- NOTE | 2019-01-05 18:42 | Hospitalist Progress Note ---
Date of Service January 05, 2019 Assessment & Plan (1) Acute respiratory failure with hypoxia: Related to pneumonia. Improved. (2) Multifocal pneumonia: Community-acquired far more likely than aspiration, but possible for both. He has been on Zithromax to cover for atypicals, as well as Unasyn to cover for typical community-acquired as well as possible aspiration. This is improving quite nicely. Speech therapy showed a very low risk assessment. More than likely this community-acquired not aspiration after further review. (3) NSTEMI (non-ST elevated myocardial infarction): Has a known history of coronary disease. His echo shows no appearance of an ischemic cardiomyopathy with chronic systolic CHF. He shows no symptoms of acute ischemia. He did have a fairly significantly elevated troponin on a dmission that is trended down. More than likely the current CO was severe demand ischemia from the pneumonia/hypoxia superimposed on his known coronary disease. Also quite possible that he has had silent MIs over the recent past as well. Discussed with family that without ischemic symptoms under normal circumstances, it is not overly likely that heart cath is going to be a significant life change her as far as potential interventions. Discussed further that with his CKD, the dye load would carry a very high risk of contrast nephropathy potentially leading to dialysis. Med management for now He is already on a beta-delvis Change his statin to intermediate potency, on review of his lipids, suppressing further with a high potency may be too low given his age and frailty, but definitely changing from 40 of simvastatin to 40 of atorvastatin should get him some benefit. Continue aspirin Increase amlodipine to improve blood pressure, low threshold to add long-acting nitrates With his CKD, I would have significant concern on initiating an CHANCE inhibitor or arb (4) Anemia: Dropped to the point of needing a transfusion Reticulocyte count low suggesting a poor marrow response Heme test positive stool but no gross blood loss clinically More than likely this a mixed picture, but I suspect that his CKD plays a large role. We will need to discuss with nephrology in regards to an erythropoietin analog. He is status post 2 units transfusion Continue to follow With his heme positive stools, as well as a history of colon cancer, and outp atient work-up should be entertained. 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 This appears either to have been a chart entry error, or initially that is now in remission (7) Hyperlipidemia LDL goal <70: See above, changing statin for better protection of his heart (8) Acute kidney injury superimposed on chronic kidney disease: Appreciate nephrology input. (9) Pacemaker: Battery will need change soon. (10) DVT prophylaxis: Pharmacologic is of concern given his ill-defined anemia. Mechanical is of dubious benefit and possible harm of skin breakdown and/or falls. (11) Discharge planning issues: Once he continues to improve medically, we will start to be on to see better how he is doing in terms of planning towards home versus needing any other type of rehab. (12) CKD (chronic kidney disease) stage 4, GFR 15-29 ml/min: (13) Cardiomyopathy: Subjective Feeling better breathing better. No chest pain. No notable blood in his stool or dark black stool. Later nursing calls the note that he has Hemoccult positive but not gross blood. Generally he is feeling better. His family notes he had colon cancer years ago. He had noted to me yesterday he has not had a colonoscopy in years. He does not take NSAIDs anymore. The family notes that that was communicated and confusion, as he only takes acetaminophen ever since Dr. Mariano instructed him to stop taking NSAIDs. Family present, extensively updated to the best my ability and to their satisfaction, answering multiple questions, as one family member took extensive notes feverishly writing in a book. Review of Systems Review of Systems: All systems reviewed & are unremarkable except as noted in HPI & below Physical Exam Physical Exam: In general he is awake and alert pleasant no distress. HEENT normal cephalic atraumatic mucous membranes moist. Breathing unlabored no accessory muscle use. Skin shows no rashes no pallor or icterus. Neuro shows cranial nerves II through XII grossly intact gross motor and sensory intact. Results & Data Vital Signs (Past 12 Hours) Vital Signs Temp Pulse Pulse Resp BP BP Pulse Ox 01/05/19 16:12 36.6 C 76 18 161/67 H 18 L 01/05/19 15:45 77 18 95 01/05/19 12:01 36.4 C L 74 19 164/80 H 100 01/05/19 11:21 71 16 97 01/05/19 10:53 97 01/05/19 07:51 36.6 C 77 16 167/72 H 97 01/05/19 07:03 68 16 96 01/05/19 06:50 36.4 C L 71 16 161/75 H 96
[2019-01-05] MEDS: SODIUM BICARBONATE 650 MG TAB PO SCH (20:04)
[2019-01-06] MEDS: AZITHROMYCIN 500 MG in DEXTROSE 5% 250 ML IV SCH
[2019-01-06] MEDS: methylPREDNISolone 20 MG in SYRINGE 0 ML IV SCH (05:32)
[2019-01-06 05:59] LABS: Hematocrit (blood only) 25.3 % (42-52); Hemoglobin 8.5 g/dL (14.0-18.0); Immature Granulocytes # (auto) 0.05 K/uL (0.00-0.02); Immature Granulocytes % (auto) 0.6 %; Lymphocytes % (auto) 6.3 %; Mean Corpuscular Hgb Conc 33.6 g/dL (32-36); Mean Corpuscular Volume 82.4 fL (80-100); Mean Platelet Volume 9.6 fL (7.4-10.4); Monocytes # (auto) 0.32 K/uL (0.11-0.59); Neutrophils # (auto) 7.06 K/uL (1.4-6.5); Neutrophils % (auto) 89.1 %; Platelet Count 169 K/uL (130-400); RDW Coefficient of Variation 14.8 % (11.5-14.5); RDW Standard Deviation 44.7 fL (36.4-46.3); Red Blood Count 3.07 M/uL (4.7-6.1); White Blood Count 7.93 K/uL (4.8-10.8)
[2019-01-06 06:38] LABS: BUN Creatinine Ratio 21.2 (10-20); Calcium 8.1 mg/dl (8.5-10.1); Est GFR (African American) 14.8; Est GFR (Non-African American) 12.8; Potassium 5.2 mmol/L (3.5-5.1)
[2019-01-06] MEDS: ALBUT/IPRATROP 3MG/0.5MG NEB 3 ML VIAL NEB SCH (07:10)
[2019-01-06] MEDS: BUDESONIDE 0.5 MG/2 ML VIAL (PULMICORT) NEB SCH ×2 (07:10→18:35)
[2019-01-06] MEDS ORDERED: AMPICILLIN/SULBACTAM SOD 3,000 MG in 0.9 % SODIUM CHLORIDE 100 ML IV SCH (08:00)
[2019-01-06] MEDS: MULTIVITAMIN TAB PO SCH (08:14)
[2019-01-06] MEDS: METOPROLOL SUCC 50MG EXT REL TAB PO SCH ×2 (08:14→20:38)
[2019-01-06] MEDS: AMLODIPINE BESYLATE 5 MG TAB PO SCH (08:14)
[2019-01-06] MEDS: ATORVASTATIN 40 MG TAB PO SCH (08:14)
[2019-01-06] MEDS: FERROUS GLUCONATE 324 MG TAB PO SCH ×2 (08:15→17:56)
[2019-01-06] MEDS: guaiFENesin 600 MG TABCR PO SCH ×2 (08:16→20:37)
[2019-01-06] MEDS: SODIUM BICARBONATE 650 MG TAB PO SCH ×2 (08:16→20:39)
[2019-01-06] MEDS: INSULIN ASPART 100 UNITS/ML 3 ML PEN SC SCH ×4 (08:18→20:41)
[2019-01-06] MEDS ORDERED: ALBUT/IPRATROP 3MG/0.5MG NEB 3 ML VIAL NEB PRN (09:24)
[2019-01-06 11:00] LABS: Ferritin 594.3 ng/ml (8-388)
--- NOTE | 2019-01-06 11:30 | Cardiology Progress Note ---
Date of Service January 06, 2019 Assessment & Plan (1) Elevated troponin: He did have a significantly elevated troponin on admission, much higher than we typically see just with demand ischemia. It was a descending pattern which is inconsistent with an acute myocardial infarction. It is conceivable that he had a myocardial infarction several days prior to admission which would explain his left ventricular wall motion abnormalities as well as his descending troponin. We may have to do some type of coronary evaluation but I would not do it at this time given his elevated creatinine. (2) Pacemaker: His pacemaker was recently evaluated in the office and was working well but needs to be replaced soon. He is actually scheduled for device replacement January 16, 2019. We may want to replace his device while he is here, but with his pneumonia and antibiotics I certainly would not do it now and the device is functioning properly currently. If he stays in house until next week we might be able to do it while he is still here. (3) Cardiomyopathy: He has a newly diagnosed cardiomyopathy based on his presenting echocardiogram. This could be consistent with a recent myocardial infarction or possibly demand ischemia perhaps in the setting of underlying coronary artery disease. I would not do anything now, when he recovers from his current event we could consider repeat echocardiography and possibly stress testing if the ejection fraction remains low. With his elevated creatinine I would not want to do angiography now. I will try to arrange a limited echo before he goes home. Subjective He is doing much better today, he is having no discomfort, he is in good spirits and has no complaints. No breathing complaints. Results & Data Vital Signs (Past 12 Hours) Vital Signs Temp Pulse Pulse Resp BP BP Pulse Ox 01/06/19 07:44 36.6 C 72 20 174/93 H 99 01/06/19 07:10 62 16 96 01/06/19 03:33 36.5 C 70 20 170/83 H 97 01/06/19 00:00 76 Diagnostic Findings Telemetry: Ventricular pacing appropriately, no arrhythmias
--- NOTE | 2019-01-06 12:03 | Nephrology Progress Note ---
Date of Service January 06, 2019 Assessment & Plan (1) Acute kidney injury superimposed on chronic kidney disease: 88 y o m with stage 3B/ 4 chronic kidney disease admitted to the hospital with non STEMI and possible multifocal pneumonia. Found to have acute kidney injury on admission creatinine was 4.0 with baseline creatinine lately staying around 3.0. Has history of high-grade proteinuria. 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 Acute kidney injury most likely hemodynamically mediated with NSTEMI and possible pneumonia.. Non oliguric, but no improvement in renal function. GFR staying significantly low with multiple electrolyte abnormality --change diet to low-potassium diet, start on sodium bicarbonate --will give Epogen 18633 units x1 dose --avoid IV fluid --avoid all NSAIDs --dose antibiotics for GFR less than 30 --monitor renal function and electrolyte daily --discussed about potential non recovery and need for renal replacement therapy in near future with history of advanced CKD. After detailed discussion patient decided patient would not consider renal replacement therapy his kidney function worsened which seems to be a reasonable decision considering his health status and other comorbidities. If renal function does not improve, would recommend getting social work professor involved for hospice care -- follow up with Dr. Darlin Verma on discharge Will follow -- (2) CKD (chronic kidney disease) stage 4, GFR 15-29 ml/min: (3) Anemia: (4) Multifocal pneumonia: (5) NSTEMI (non-ST elevated myocardial infarction): Emeka Sahu was seen examined with his daughter at bedside. he is having no discomfort and has no complaints. No breathing complaints. No improvement in renal function, creatinine staying around 4, has hyperkalemia and metabolic acidosis. Hemoglobin staying around 8-9. Physical Exam Constitutional: WD/WN, vitals as above Respiratory: normal respiratory effort, lungs clear to auscultation Cardiovascular: RRR, no murmur, no edema Neurologic: PERRL, EOMI, accommodation nl, no face palsy, no dysarthria Psychiatric: A+Ox3, euthymic affect Results & Data Vital Signs (Past 12 Hours) Vital Signs Temp Pulse Pulse Resp BP BP Pulse Ox 01/06/19 11:49 36.8 C 80 20 152/82 H 98 01/06/19 07:44 36.6 C 72 20 174/93 H 99 01/06/19 07:10 62 16 96 01/06/19 03:33 36.5 C 70 20 170/83 H 97 01/06/19 00:00 76
[2019-01-06] MEDS ORDERED: EPOETIN ALFA 10,000 UNITS/ML VIAL SQ ONE (12:45)
--- NOTE | 2019-01-06 16:27 | Family Medicine Progress Note ---
Date of Service January 06, 2019 Assessment & Plan (1) Acute respiratory failure with hypoxia: 88-year-old male with a past medical history of CAD status post [place], pacer for third-degree block, hypertension, CKD stage III, colon cancer, dyslipidemia, diabetes type 2 presents with acute hypoxic respiratory failure. Community-acquired pneumonia Improving, concern initially for aspirationswallow study was unremarkable Transitioning to Augmentin renally dosed, 500 mg twice daily (day 3), continue azithromycin for 1 dose PRN duo nebs 4 times daily NSTEMI Cardiology following, appreciate recommendations, per cardiology may replace pacer battery during this admission Likely demand ischemiaCAD in the setting of acute illness We will medically optimize the patient at this timeincrease amlodipine, continue beta-delvis, continue intermittent dose statin, continue aspirin CKD is likely also contributing to rising troponin No indication for heart catheterization at this time, high risk for contrast nephropathy Anemia, heme positive stools Hemoglobin dropped to 6.9, no vicente blood seen, received 2 units of blood, increased to 9.6 Continue to follow H/H Will need outpatient GI follow-up KAT on CKD Nephro following, appreciate recommendations Renally dose medications, avoid NSAIDs, avoid IV fluids We will give Epogen one-time dose today Hypertension Moderately elevatedincreased amlodipine Consider further optimizationwould recommend starting Imdur if patient continues to have issues with blood pressure Continue beta-delvis, amlodipine Hyperlipidemia Switch to a intermediate intensity statin DVT prophylaxis Contraindicated in the setting of heme positive stools and anemia FEN Low potassium diet CODE STATUS Full (2) Hypertension: (3) Diabetes mellitus type 2 with complications: (4) Anemia: (5) Hyperlipidemia LDL goal <70: (6) Acute kidney injury superimposed on chronic kidney disease: (7) NSTEMI (non-ST elevated myocardial infarction): Supervising Physician Co-Signing Physician Notes I personally examined the patient and verified all trevino points of history and exam, discussed case, and agree with decision making with Dr Lantigua. Feeling pretty good overall. Breathing better. Extensive discussions with patient and family again. All questions answered to the best my ability. Vitals noted, in general he is awake and alert pleasant no distress. HEENT normocephalic atraumatic mucous members moist. Breathing is unlabored no accessory muscle use. Skin shows no rashes no pallor or icterus. Right-sided pneumonia more than likely community-acquired especially given reassuring speech evaluation. Transition to oral Augmentin, finished 3 days of Zithromax 500 mg. NSTEMImore than likely related to physiologic stress from above superimposed on known coronary disease. Asymptomatic now, adjusted med management, continue to follow. As discussed with family yesterday, well a heart cath could be considered on the basis of his coronary disease, given that he is otherwise asymptomatic it may be of relatively little benefit, and also given his chronic kidney disease, the risk would be excessive. CKD stage IVcontinue to follow. Appreciate nephrology input Anemiafollow hemoglobin, now status post 2 units transfusion. He is getting erythropoietin analog by nephrology, agree with this. Of note he did have heme positive stools, but after further discussion he takes iron regularly. Outpatient follow-up for this given that he did apparently have a prior history of a colon malignancy, but more than likely, his heme positive stool relates to his iron intake, given that he is not showing any signs of active bleeding. Otherwise as above Subjective Doing well this morning, denies shortness of breath. Tolerating his diet. Review of systems Denies fevers, chills, night sweats, abdominal pain, nausea/vomiting/diarrhea, shortness of breath or cough Review of Systems Review of Systems: All systems reviewed & are unremarkable except as noted in HPI & below Physical Exam Constitutional: WD/WN, vitals as above Eyes: PERRL, conjunctivae normal, anicteric sclerae ENMT: external ear and nose normal, oropharynx normal Neck: trachea midline, no thyromegaly Respiratory: normal respiratory effort, lungs clear to auscultation Cardiovascular: RRR, no murmur, no edema Gastrointestinal (Abdomen): normal bowel sounds, soft, nontender, no hepatosplenomegaly Musculoskeletal: no cyanosis or clubbing, extremities motor strength 5/5 Skin: no rashes, warm and dry Neurologic: PERRL, EOMI, accommodation nl, no face palsy, no dysarthria Psychiatric: A+Ox3, euthymic affect Results & Data Vital Signs (Past 12 Hours) Vital Signs Temp Pulse Pulse Resp BP BP Pulse Ox 01/06/19 15:53 64 01/06/19 15:20 36.5 C 64 21 142/71 H 97 01/06/19 11:49 36.8 C 80 20 152/82 H 98 01/06/19 07:44 36.6 C 72 20 174/93 H 99 01/06/19 07:10 62 16 96 Resident Activity Tracking Resident Involvement: Resident Care Provided Care Provided: Adult Hospital Medicine
[2019-01-06] MEDS ORDERED: AMOXICILLIN/CLAVULANATE 875 MG TAB PO SCH (17:00)
[2019-01-06] MEDS: AMOXICILLIN/CLAVULANATE 500 MG TAB PO SCH (17:54)
[2019-01-07] MEDS: AZITHROMYCIN 500 MG in DEXTROSE 5% 250 ML IV SCH (00:24)
[2019-01-07 07:43] LABS: Creatinine Clr Calc Pharmacy 12.6 ml/min; Est GFR (African American) 14.2; Est GFR (Non-African American) 12.3
[2019-01-07] MEDS: SODIUM BICARBONATE 650 MG TAB PO SCH (08:54)
[2019-01-07] MEDS: AMOXICILLIN/CLAVULANATE 500 MG TAB PO SCH (08:54)
[2019-01-07] MEDS: ATORVASTATIN 40 MG TAB PO SCH (08:54)
[2019-01-07] MEDS: AMLODIPINE BESYLATE 5 MG TAB PO SCH (08:54)
[2019-01-07] MEDS: MULTIVITAMIN TAB PO SCH (08:55)
[2019-01-07] MEDS: guaiFENesin 600 MG TABCR PO SCH (08:55)
[2019-01-07] MEDS: METOPROLOL SUCC 50MG EXT REL TAB PO SCH (08:55)
[2019-01-07] MEDS: FERROUS GLUCONATE 324 MG TAB PO SCH (08:55)
[2019-01-07] MEDS: INSULIN ASPART 100 UNITS/ML 3 ML PEN SC SCH ×2 (08:56→12:34)
--- NOTE | 2019-01-07 12:34 | Nephrology Progress Note ---
Date of Service January 07, 2019 Assessment & Plan (1) Acute kidney injury superimposed on chronic kidney disease: 88 y o m with stage 3B/ 4 chronic kidney disease admitted to the hospital with non STEMI and possible multifocal pneumonia. Found to have acute kidney injury on admission creatinine was 4.0 with baseline creatinine lately staying around 3.0. Has history of high-grade proteinuria. 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 Acute kidney injury most likely hemodynamically mediated with NSTEMI and possible pneumonia.. Non oliguric, renal function staying stable. --continue on sodium bicarbonate --avoid IV fluid --avoid all NSAIDs --dose antibiotics for GFR less than 30 --monitor renal function and electrolyte daily --discussed about potential non recovery and need for renal replacement therapy in near future with history of advanced CKD. After detailed discussion patient decided patient would not consider renal replacement therapy his kidney function worsened which seems to be a reasonable decision considering his health status and other comorbidities. If renal function does not improve, would recommend getting social sciences lecturer involved for hospice care -- Ok to be DC, follow up with Dr. Saeed on discharge Will follow -- (2) CKD (chronic kidney disease) stage 4, GFR 15-29 ml/min: (3) Anemia: (4) Multifocal pneumonia: (5) NSTEMI (non-ST elevated myocardial infarction): Subjective Bill was seen and examined this morning, feeling well, denies shortness of breath. Tolerating his diet. Physical Exam Constitutional: WD/WN, vitals as above Respiratory: normal respiratory effort, lungs clear to auscultation Cardiovascular: RRR, no murmur, no edema Neurologic: PERRL, EOMI, accommodation nl, no face palsy, no dysarthria Psychiatric: A+Ox3, euthymic affect Results & Data Vital Signs (Past 12 Hours) Vital Signs Temp Pulse Resp BP BP Pulse Ox 01/07/19 08:16 36.5 C 60 18 166/70 H 94 01/07/19 00:50 36.6 C 69 18 165/74 H 97
--- NOTE | 2019-01-07 13:23 | Discharge Summary ---
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 Principal Diagnosis pneumonia, acute anemia, KAT on CKD Discharge Exam Vitals noted. GENERAL: Awake, alert to person, place, and time, nontoxic-appearing, in no distress HENT: Normocephalic, atraumatic. Mucus membranes appear moist. EYES: Normal conjunctiva. Sclera non-icteric. EOMI. NECK: Supple. Full range of motion. No JVD RESPIRATORY: Clear to auscultation. Normal work of breathing. CARDIAC: Regular rate, normal rhythm. Extremities warm and well perfused, 2+ radial pulses bilaterally; 2+ posterior tibialis pulses bilaterally. ABDOMEN: Soft, non-distended. No tenderness to palpation in all four quadrants. No rebound or guarding. No masses. Bowel sounds are normal. LOWER EXTREMITIES: Inspection of calves reveal equal size bilaterally. They are non-tender. No edema. No discoloration. NEURO: No focal gross focal motor deficits noted. Sensation in tact. CN II-XII grossly in tact. SKIN: Rash not present. No jaundice noted. Significant lesions not present. PSYCH: Appropriate mood and affect. Cooperative. Exam as done by Ella Lantigua MD, [employer]. Discharge Data Allergies Allergy/AdvReac Type Severity Reaction Status Date / Time morphine AdvReac Severe SOB, Verified 01/04/19 01:28 Respiratory distress Consultations 01/04/19 04:09 ED Decision to Admit Stat 01/04/19 04:48 Consult Cardiology Routine Consult Case Management - Discharge Planning Routine 01/04/19 06:59 Consult Nephrology Routine 01/07/19 11:21 Consult [facility] snubber Routine Hospital Course (1) Acute respiratory failure with hypoxia: 88-year-old male with a past medical history of CAD status post OH, pacer for third-degree block, hypertension, CKD stage III, colon cancer, dyslipidemia, diabetes type 2 presents with acute hypoxic respiratory failure. Community-acquired pneumonia concern initially for aspirationswallow study was unremarkable Transitioned to PO Augmentin renally dosed, 500 mg twice daily for 7 more days (upon discharge). Completed 3 days of azithromycin. NSTEMI Cardiology consulted, appreciate recommendationsLikely demand ischemiaCAD in the setting of acute illnessCKD is likely also contributing to rising troponin. No indication for heart catheterization at this time, high risk for contrast nephropathy Medically optimized the patient: increase amlodipine, continue beta-delvis, continue intermediate dose statin, continue aspirin Chronic Anemia, with acute drop to Hgb 6.8 and heme positive stools Reticulocyte count low suggesting a poor marrow response, Heme test positive stool but no gross blood loss clinically. -s/p 2 units of blood, increased to 9.6. Pt does have a h/o colon cancer, and given heme positive stools here in hospital -- PCP could consider outpatient GI follow-up -- Recommend repeat CBC at follow up appointment. - I did call pt's home phone and spoke with daughter Maia relaying this, and she verbalized understanding. KAT on CKD Nephrology consulted, appreciate recommendations Renally dose medications, avoid NSAIDs, avoid IV fluids Given Epogen one-time -patient would not consider renal replacement therapy despite his kidney function worsening which seems to be a reasonable decision considering his health status and other comorbidities. -continue low potassium diet Hypertension Moderately elevatedincreased amlodipine Consider further optimizationwould recommend starting Imdur if patient continues to have issues with blood pressure Continue beta-delvis, amlodipine Hyperlipidemia Switch to a intermediate intensity statin (2) Hypertension: (3) Diabetes mellitus type 2 with complications: (4) Anemia: (5) Hyperlipidemia LDL goal <70: (6) Acute kidney injury superimposed on chronic kidney disease: (7) NSTEMI (non-ST elevated myocardial infarction): Total Time Total Time Spent Total Time Spent (In Minutes): < 30 Discharge Plan Discharge Items Patient Disposition: Home - Home Health Services Reason For Visit: ACUTE RESP FAILURE WITH HYPOXIA, NSTEMI, PNEUMONIA Discharge Diagnosis: ACUTE RESP FAILURE WITH HYPOXIA, NSTEMI, PNEUMONIA Condition: Fair Discharge Goals: Decrease discomfort, Improve function, Learn about illness and Therapeutic intervention Activity: Per 'Additional Instructions' section Bathing: No limitations Exercise/Sports: Gradually increase as tolerated Non-emergency contact: Primary Care Provider, Toeing Stockings and Reducing Machine Operator Call non-emergency contact if: you have any medication questions, your pain is not controlled and your temperature is above 101.5 Follow-up/Referrals: Raul Lemos MD [Primary Care Provider] - Diet: Carb Consistent or DM2 and Heart Healthy Addtl Provider Instructions: You were admitted due to trouble breathing and were found to be hypoxic (low oxygen level) due to a pneumonia in your lungs. This has been treated with antibiotics. You should continue this antibiotic for 1 more week upon discharge. Augmentin is being sent to your pharmacy. Your heart and kidneys were also under duress during this acute infection. You were seen by nephrology and the possibility of dialysis was discussed with you and family, and together you all have opted to not pursue dialysis at this time. Continue a low potassium diet. Continue Sodium-bicarbonate tablets -- follow up with Dr. Saeed in 1 month from discharge. Please keep your follow up appt with Cardiology, your pacemaker battery will be replaced as scheduled on the . Given that you are not very mobile at baseline and require assistance, this has been discussed and the option of ogoing home seems reasonable given that your caregiver lives with you. Should you all feel you need more help, do not hesitate to reach out to your PCP or catalytic case operator and ask for info on home health nursing. We have also adjusted your cholesterol med -- start Atorvastatin (and STOP simvastatin). As discussed, your energy level will take time to recover -- pneumonia unfortunately can take 1-2 months -- so march you should be back at your baseline energy -- please try to be as aactive as possible, with the knowledge that your recovery will take time. Please follow up with your PCP in 3-5 days from discharge so that she can monitor your ongoing progress. If your breathing concerns you and you are not able to recover your breath after resting, or you experience new symptoms like mental status changes or fall, please do not hesitate to reach out to your PCP or go to the ER if you are concerned. Be Well A [facility] Prescriptions: New atorvastatin 40 mg Tablet 40 mg PO QAM 30 Days Qty: 30 RF: 0 sodium bicarbonate 650 mg Tablet 1,300 mg PO BID 30 Days Qty: 120 RF: 0 amoxicillin-pot clavulanate 500-125 mg Tablet 1 tab PO BIDM 7 Days Qty: 14 RF: 0 Continued amlodipine 10 mg Tablet 10 mg PO DAILY RF: 0 Cranberry Plus Vitamin C 140-100 mg Capsule 1 cap PO DAILY RF: 0 ergocalciferol (vitamin D2) [Vitamin D2] 50,000 unit Capsule 50,000 unit PO DIRECTED RF: 0 ferrous gluconate 324 mg (37.5 mg iron) Tablet 324 mg PO BIDM RF: 0 flaxseed oil 1,000 mg Capsule 1,000 mg PO DAILY RF: 0 metoprolol succinate 200 mg Capsule,Sprinkle,Er 24hr 200 mg PO DAILY RF: 0 nitroglycerin 0.4 mg Tablet, Sublingual 0.4 mg sublingual DIRECTED PRN (Reason: Chest Pain) RF: 0 multivitamin Tablet 1 tab PO DAILY RF: 0 Discontinued simvastatin 40 mg Tablet 40 mg PO PM RF: 0 Stand-Alone Forms: [facility] Discharge Orders: Discharge Order (Routine); Ordered 01/07/19 Ordered By: Ella Lantigua Admission Data Admit Date/Time: 01/04/19 03:46 Attending Provider: Nir Chicas Admit Provider: Benny Lora Primary Care Provider: Raul Lemos V. Other Providers: Benny Lora ; Aquilino Edmondson ; Hieu Kelly Service: Medical Other Interventions: Discharge Summary Assessment (RN) Last Done: 01/07/19 14:00 Pending Studies at Discharge: No DC Date/Time DO NOT enter until pt leaves facility: 01/07/19 14:15 Supervising Physician Co-Signing Physician Notes I personally examined the patient and verified all trevino points of history and exam, discussed case, and agree with decision making with Dr Lantigua. Feeling pretty good overall. Breathing better. Family believes he is at baseline. Vitals noted, in general he is awake and alert pleasant no distress. HEENT normocephalic atraumatic mucous members moist. Breathing is unlabored no accessory muscle use. Skin shows no rashes no pallor or icterus. Right-sided pneumonia more than likely community-acquired especially given reassuring speech evaluation. Finish her course of Augmentin, finished 3 days of Zithromax 500 mg. NSTEMImore than likely related to physiologic stress from above superimposed on known coronary disease. Asymptomatic now, adjusted med management, continue to follow. As discussed with family, well a heart cath could be considered on the basis of his coronary disease, given that he is otherwise asymptomatic it may be of relatively little benefit, and also given his chronic kidney disease, the risk would be excessive. Increased his amlodipine, would give consideration to initiating a long-acting nitrate if his blood pressure remains high as an outpatient. Continue metoprolol. Changed his statin over to atorvastatin. CKD stage IVcontinue to follow. Outpatient follow-up Anemiafollow hemoglobin, now status post 2 units transfusion. He is getting erythropoietin analog by nephrology, agree with this. Of note he did have heme positive stools, but after further discussion he takes iron regularly. Outpatient follow-up for this given that he did apparently have a prior history of a colon malignancy, but more than likely, his heme positive stool relates to his iron intake, given that he is not showing any signs of active bleeding. Outpatient follow-up Otherwise as above Resident Activity Tracking Resident Involvement: Resident Care Provided Care Provided: Adult [facility]
--- NOTE | 2019-01-07 13:40 | Cardiology Progress Note ---
Date of Service January 07, 2019 Assessment & Plan (1) Elevated troponin: He did have a significantly elevated troponin on admission, much higher than we typically see just with demand ischemia. It was a descending pattern which is inconsistent with an acute myocardial infarction. It is conceivable that he had a myocardial infarction several days prior to admission which would explain his left ventricular wall motion abnormalities as well as his descending troponin. We may have to do some type of coronary evaluation but I would not do it at this time given his elevated creatinine. (2) Pacemaker: His pacemaker was recently evaluated in the office and was working well but needs to be replaced soon. He is actually scheduled for device replacement January 16, 2019. I had considered replacing the device while he is here, however he is ready to go home and he is still on antibiotics. It would be safe for perhaps to wait until he is complete his antibiotic course so I am going to leave his replacement as scheduled. (3) Cardiomyopathy: He has a newly diagnosed cardiomyopathy based on his presenting echocardiogram. This could be consistent with a recent myocardial infarction or possibly demand ischemia perhaps in the setting of underlying coronary artery disease. I would not do anything now, when he recovers from his current event we could consider repeat echocardiography and possibly stress testing if the ejection fraction remains low. With his elevated creatinine I would not want to do angiography now. I will try to arrange a limited echo for this coming week as an outpatient. Subjective He is feeling well today and he is in good spirits. Physical Exam Physical Exam: Constitutional: Alert, cooperative and in no distress. Pulmonary: Decreased breath sounds on auscultation bilaterally. Cardiac: Regular rhythm with no murmur, gallop or rub. Abdomen: Soft, nontender with normal bowel sounds. Extremities: No edema. Skin: No rash, ecchymoses or petechiae. Results & Data Vital Signs (Past 12 Hours) Vital Signs Temp Pulse Resp BP Pulse Ox 01/07/19 08:16 36.5 C 60 18 166/70 H 94
[2019-01-11 22:21] LABS: Vitamin D3,1,25 <8 pg/mL
== END 2019-01-07 14:15 | disposition home health service (06) | DRG 280 ==
LOC: ED 00:53 → SUATTDRO 03:46 → 2S 03:46 → 4E 01-06 18:24

== ENCOUNTER 2019-06-01 10:24 | Inpatient (IN) ==
[2019-06-01] MEDS ORDERED: ALBUT/IPRATROP 3MG/0.5MG NEB 3 ML VIAL NEB STA (10:50)
--- NOTE | 2019-06-01 11:12 | XRay Report ---
XR chest 1V portable HISTORY: Dyspnea COMPARISON: Chest 02/12/2019. FINDINGS: No pneumothorax. Bilateral perihilar hazy airspace opacities with interstitial thickening. The heart is borderline enlarged. There may be trace bilateral pleural effusions. Left-sided pacemake r/defibrillator is noted. IMPRESSION: Bilateral perihilar hazy airspace opacities with interstitial thickening. There may be trace bilatera l pleural effusions. Findings likely represent asymmetric pulmonary edema. Electronically signed by: Sharath Lilly M.D. 06/01/2019 11:11 AM
[2019-06-01 11:24] LABS: Basophils # (auto) 0.02 K/uL (0-0.2); Basophils % (auto) 0.2 %; Eosinophils # (auto) 0.03 K/uL (0-0.5); Eosinophils % (auto) 0.3 %; Hematocrit (blood only) 21.8 % (42-52); Immature Granulocytes # (auto) 0.08 K/uL (0.00-0.02); Immature Granulocytes % (auto) 0.8 %; Lymphocytes # (auto) 0.72 K/uL (1.2-3.4); Lymphocytes % (auto) 6.9 %; Mean Corpuscular Hemoglobin 27.7 pg (25-34); Mean Corpuscular Hgb Conc 32.1 g/dL (32-36); Mean Corpuscular Volume 86.2 fL (80-100); Mean Platelet Volume 8.9 fL (7.4-10.4); Monocytes # (auto) 0.44 K/uL (0.11-0.59); Monocytes % (auto) 4.2 %; Neutrophils % (auto) 87.6 %; Platelet Count 197 K/uL (130-400); RDW Coefficient of Variation 15.5 % (11.5-14.5); RDW Standard Deviation 48.3 fL (36.4-46.3); Red Blood Count 2.53 M/uL (4.7-6.1); White Blood Count 10.39 K/uL (4.8-10.8)
[2019-06-01 11:34] LABS: Partial Thromboplastin Time 27.3 Seconds (21.0-31.0); Prothrombin Time 10.4 Seconds (9.0-12.0)
[2019-06-01 11:40] LABS: Albumin Level 3.2 gm/dl (3.4-5.0); BUN Creatinine Ratio 11.3 (10-20); Calcium 8.8 mg/dl (8.5-10.1); Creatinine Clr Calc Pharmacy 12.8 ml/min; Est GFR (Non-African American) 12.1; Magnesium 2.5 mg/dl (1.8-2.4); Potassium 4.9 mmol/L (3.5-5.1)
[2019-06-01 11:48] LABS: Acanthocytes 1+
[2019-06-01 11:49] LABS: Albumin Globulin Ratio 0.9 (0.9-2); Bilirubin,Total 0.4 mg/dl (0.2-1); Globulin 3.6 gm/dl (2.5-4.0); Total Protein 6.8 gm/dl (6.4-8.2); Troponin I 0.069 ng/ml (0-0.045)
[2019-06-01] MEDS ORDERED: SODIUM CHLORIDE 0.9% 250 ML IV PRN ×2 (12:20→15:49)
[2019-06-01 12:34] LABS: Appearance Urine Cloudy (Clear); Bacteria Urine Automated Negative (Negative); Bilirubin Urine Negative (Negative); Blood Urine Trace (Negative); Color Urine Yellow; Epithelial Cell Urine Auto 0-5 /lpf (0-5); Glucose Urine UA Trace (Negative); Ketones Urine Negative (Negative); Leukocyte Esterase Urine 2+ (Negative); Nitrite Urine Negative (Negative); Protein Urine 3+ (Negative); RBC Urine Automated 0-4 /hpf (0-4); Specific Gravity Urine 1.013 (1.000-1.030); Urobilinogen Urine Negative (Negative); WBC Urine Automated >30 /hpf (0-5)
[2019-06-01] MEDS ORDERED: cefTRIAXone SODIUM 1,000 MG/50 ML BAG IV STA ×2 (14:02→21:59)
--- NOTE | 2019-06-01 14:56 | Emergency Department Note ---
Entered by Glenroy Leonard acting as a scribe for History of Present Illness General Chief complaint: Cough Stated complaint: POSSIBLE PNEUMONIA Source: patient and family (daughter) History of Present Illness Onset (ago): hour(s) (several ) Location: chest Severity: similar to prior episodes Pain Consistency: + constant Quality: + other (cough and shortness of breath ) Associated symptoms: + chest pain (slight, central ) The patient is an 88 year old male, with past medical history of CKD, anemia, and CAD, who presents to the Emergency Room with complaints of a constant cough and shortness of breath beginning over night, in the last several hours. The patient states he is bringing something up with the cough, but he notes he has been swallowing whatever he has been bringing up. The patient also notes of slight, central chest pain. The patient states he felt fine going to bed last night. The daughter of the patient reports [facility]. The daughter notes the patient's symptoms are similar to symptoms back in January when the patient had pneumonia. The patient states he is typically not on oxygen. The patient states he did not eat this morning, but the daughter of the patient notes that she gave the patient a glucose tablet this morning. Home Medications Home Medications Medication Instructions Recorded Confirmed Type Cranberry Plus Vitamin C 1 cap PO DAILY 01/04/19 06/01/19 History amlodipine 10 mg PO DAILY 01/04/19 06/01/19 History ergocalciferol (vitamin D2) 50,000 unit PO MONTHLY 01/04/19 06/01/19 History [Vitamin D2] ferrous gluconate 324 mg PO BIDM 01/04/19 06/01/19 History flaxseed oil 1,000 mg PO DAILY 01/04/19 06/01/19 History metoprolol succinate 200 mg PO DAILY 01/04/19 06/01/19 History multivitamin 1 tab PO DAILY 01/04/19 06/01/19 History nitroglycerin 0.4 mg SUBLINGUAL DIRECTED PRN 01/04/19 06/01/19 History atorvastatin 40 mg tablet 40 mg PO DAILY #90 tab 02/12/19 06/01/19 Rx sodium bicarbonate 650 mg PO BID 05/03/19 06/01/19 History Allergies Allergy/AdvReac Type Severity Reaction Status Date / Time morphine AdvReac Severe SOB, Verified 06/01/19 11:30 Respiratory distress Past Med/Surg History Medical History Anemia (Chronic) Chronic kidney disease, stage 4 (severe) (Chronic) Hypertension (Chronic) Biventricular ICD (implantable cardioverter-defibrillator) in place (Acute) CAD (coronary artery disease) (Acute) Dyslipidemia (Acute) Right carotid bruit (Acute) Stage III chronic kidney disease (Acute) Vitamin D deficiency (Acute) Pacemaker Chronic back pain (Acute) Pneumonia (Acute) discharged 5 days ago for "walking pneumonia" per pt. Arthritis Hyperlipidemia Kidney stones Myocardial Infarction Surgical History History of left knee replacement (Resolved) History of appendectomy (Acute) History of bowel resection (Acute) hx of colostomy which has since been reversed. History of colostomy (Acute) History of colostomy reversal (Acute) History of cardiac cath Family History Mother Heart disease Brother Rheumatic heart disease Other FH: early Family history non-contributory Social History Preferred Language: Thai Communication Ability: Effective Student Ministries Director Required: No Beliefs That Will Affect Care: Anglican Anglican Beliefs: Orthodox Current Living Situation: Alone Current Living Situation Comment: daughter is caregiver and stays with him, lives "4 miles away" Other Information That Helps Us Care for You: No Feels Safe at Home: Yes Safety Concerns: Feels Safe At This Time Smoking Status: Former smoker Second Hand Exposure: No ; Hx Alcohol Use: No Hx Substance Use: No Review of Systems See HPI for pertinent positives & negatives. and A total of 10 systems reviewed and were otherwise negative Physical Exam Vital Signs Vital Signs - 24 hr 06/01/19 10:33 06/01/19 10:50 06/01/19 10:53 Temperature 36.4 C L Temperature Source Oral Sepsis Recent Fever Within 48 Hours No Sepsis Action Taken by Nursing No Action Required Pulse Rate 81 74 72 Pulse Rate [Apical] Pulse Rate from SpO2 Sensor 75 71 Respiratory Rate 20 10 L 15 Respiratory Effort / Characteristics Short of Breath Respiratory Pattern Regular Blood Pressure 153/72 H 147/62 H Blood Pressure Mean 99 90 Blood Pressure Position Sitting Pulse Oximetry 83 L 95 96 Oxygen Delivery Method Room Air Oxygen Flow Rate 06/01/19 11:00 06/01/19 11:26 06/01/19 11:30 Temperature Temperature Source Sepsis Recent Fever Within 48 Hours Sepsis Action Taken by Nursing Pulse Rate 73 65 Pulse Rate [Apical] 62 Pulse Rate from SpO2 Sensor 75 64 Respiratory Rate 20 12 14 Respiratory Effort / Characteristics Spontaneous Respiratory Pattern Blood Pressure 140/58 L 149/57 H Blood Pressure Mean 85 87 Blood Pressure Position Pulse Oximetry 94 98 100 Oxygen Delivery Method Nasal Cannula Oxygen Flow Rate 2 06/01/19 12:00 06/01/19 12:09 06/01/19 12:30 Temperature Temperature Source Sepsis Recent Fever Within 48 Hours Sepsis Action Taken by Nursing Pulse Rate 67 79 Pulse Rate [Apical] Pulse Rate from SpO2 Sensor 67 79 Respiratory Rate 20 12 Respiratory Effort / Characteristics Respiratory Pattern Blood Pressure 135/58 L 161/69 H Blood Pressure Mean 83 99 Blood Pressure Position Pulse Oximetry 99 99 92 Oxygen Delivery Method Nasal Cannula Oxygen Flow Rate 2 2 06/01/19 13:00 06/01/19 13:30 06/01/19 14:00 Temperature Temperature Source Sepsis Recent Fever Within 48 Hours Sepsis Action Taken by Nursing Pulse Rate 85 67 Pulse Rate [Apical] Pulse Rate from SpO2 Sensor 85 74 68 Respiratory Rate 19 17 11 L Respiratory Effort / Characteristics Respiratory Pattern Blood Pressure 174/80 H 161/66 H 154/55 H Blood Pressure Mean 111 97 88 Blood Pressure Position Pulse Oximetry 91 87 L 97 Oxygen Delivery Method Oxygen Flow Rate 06/01/19 14:30 Temperature Temperature Source Sepsis Recent Fever Within 48 Hours Sepsis Action Taken by Nursing Pulse Rate 65 Pulse Rate [Apical] Pulse Rate from SpO2 Sensor 64 Respiratory Rate 16 Respiratory Effort / Characteristics Respiratory Pattern Blood Pressure 149/51 H Blood Pressure Mean 83 Blood Pressure Position Pulse Oximetry 100 Oxygen Delivery Method Oxygen Flow Rate GENERAL: Awake, alert, fatigued-appearing, in no distress HENT: Normocephalic, atraumatic. EYES: Normal conjunctiva. Sclera non-icteric. NECK: Supple. No nuchal rigidity. RESPIRATORY: Mild increased work of breathing. Diminished lung bases. CARDIAC: Normal rate. Normal rhythm. Extremities warm and well perfused. GI: Soft, non-distended. No tenderness to palpation. No rebound or guarding. RECTAL: Deferred. MUSCULOSKELETAL: Atraumatic. Chest examination reveals no tenderness. LOWER EXTREMITIES: Calves are equal size bilaterally and non-tender. Trace pedal edema. NEURO: Normal sensorium. No sensory or motor deficits noted. No facial droop. SKIN: Warm and dry. No rash or jaundice noted. Course 1045: Past medical records reviewed. The patient was evaluated in room B10. A complete history and physical exam was performed. 1229: I updated the patient on his case. The patient consented for blood. 1234: I reviewed the patient's case with Dr. Ly-[facility]. Dr. Ly will evaluate the patient for further management. Consultations Consultation #1: I reviewed the patient's case with [facility]. Dr. Ly will evaluate the patient for further management. Time: 12:34 Administered Medications Amlodipine Besylate (Norvasc) 10 mg PO DAILY DENZEL Stop: 07/02/19 08:59 Last Admin: 06/01/19 16:33 Dose: 10 mg Documented by: [id number] Atorvastatin Calcium (Lipitor) 40 mg PO DAILY DENZEL Stop: 07/02/19 08:59 Last Admin: 06/01/19 16:33 Dose: 40 mg Documented by: [id number] Ferrous Gluconate (Ferrous Gluconate) 324 mg PO BIDM DENZEL Stop: 07/01/19 16:59 Last Admin: 06/01/19 16:33 Dose: 324 mg Documented by: [id number] Furosemide 20 mg/ Syringe 2 mls @ 4 mls/min IV BID17 DENZEL Stop: 07/01/19 16:59 Last Admin: 06/01/19 16:32 Dose: 4 mls/min Documented by: [id number] Metoprolol Succinate (Toprol Xl) 200 mg PO DAILY DENZEL Stop: 07/02/19 08:59 Last Admin: 06/01/19 16:34 Dose: 200 mg Documented by: [id number] Miscellaneous (Order Awaiting Action) 1 ea N/A QS DENZEL Stop: 07/01/19 15:59 Last Admin: 06/01/19 16:20 Dose: Not Given Documented by: [id number] Multivitamins (Multivitamin Tab) 1 tab PO DAILY DENZEL Stop: 07/02/19 08:59 Last Admin: 06/01/19 16:33 Dose: 1 tab Documented by: [id number] Discontinued Medications Albuterol (Duoneb) 3 ml NEB NOW STA Stop: 06/01/19 10:51 Last Admin: 06/01/19 11:26 Dose: 3 ml Documented by: [id number] Ceftriaxone Sodium (Rocephin) 1,000 mg in 50 mls @ 100 mls/hr IV NOW STA Stop: 06/01/19 14:31 Last Infusion: 06/01/19 15:00 Dose: 0 mls/hr Documented by: [id number] Admin: 06/01/19 14:16 Dose: 100 mls/hr Documented by: [id number] Influenza Virus Vaccine Quadrival (Flucelvax Quad Vaccine) 0.5 ml IM .ONCE ONE Stop: 06/01/19 16:16 Last Admin: 06/01/19 16:34 Dose: Not Given Documented by: [id number] Medical Decision Making Differential Diagnosis Differential diagnosis: Etiologies such as infections, reactive airway disease, pneumonia, pneumothorax, COPD, CHF, cardiac ischemia, pulmonary embolism, musculoskeletal, gastrointestinal, as well as others were entertained. Medical Records Attestation: I reviewed the patient's medical records. Home Medications Current Medication List: was personally reviewed by me Laboratory Data Attestation: I reviewed the patient's lab results. Result diagrams: 06/01/19 11:07 06/01/19 11:07 Lab Results 06/01/19 06/01/19 06/01/19 Range/Units 11:07 11:07 11:07 WBC 10.39 (4.8-10.8) K/uL RBC 2.53 L (4.7-6.1) M/uL Hgb 7.0 L (14.0-18.0) g/dL Hct 21.8 L (42-52) % MCV 86.2 (80-100) fL MCH 27.7 (25-34) pg MCHC 32.1 (32-36) g/dL RDW Std Deviation 48.3 H (36.4-46.3) fL RDW Coeff of Katherine 15.5 H (11.5-14.5) % Plt Count 197 (130-400) K/uL MPV 8.9 (7.4-10.4) fL Immature Gran % (Auto) 0.8 % Neut % (Auto) 87.6 % Lymph % (Auto) 6.9 % Andrews % (Auto) 4.2 % Eos % (Auto) 0.3 % Baso % (Auto) 0.2 % Immature Gran # (Auto) 0.08 H (0.00-0.02) K/uL Neut # (Auto) 9.10 H (1.4-6.5) K/uL Lymph # (Auto) 0.72 L (1.2-3.4) K/uL Andrews # (Auto) 0.44 (0.11-0.59) K/uL Eos # (Auto) 0.03 (0-0.5) K/uL Baso # (Auto) 0.02 (0-0.2) K/uL Acanthocytes (Spur) 1+ PT 10.4 (9.0-12.0) Seconds INR 1.0 (0.9-1.1) APTT 27.3 (21.0-31.0) Seconds PTT Ratio 1.0 Sodium 140 (136-145) mmol/L Potassium 4.9 (3.5-5.1) mmol/L Chloride 110 H (98-107) mmol/L Carbon Dioxide 20 L (21-32) mmol/L Anion Gap 10.0 (3-11) BUN 46 H (7-18) mg/dl Creatinine 4.11 H (0.6-1.4) mg/dl Est Cr Clr Drug Dosing 12.8 ml/min Est GFR ( Amer) 14.0 Est GFR (Non-Af Amer) 12.1 BUN/Creatinine Ratio 11.3 (10-20) Glucose 206 H (70-99) mg/dl POC Lactic Acid Jordi (0.90-1.70) mmol/L Calcium 8.8 (8.5-10.1) mg/dl Magnesium 2.5 H (1.8-2.4) mg/dl Total Bilirubin 0.4 (0.2-1) mg/dl AST 9 L (15-37) U/L ALT 9 L (12-78) U/L Alkaline Phosphatase 73 (45-117) U/L Troponin I 0.069 H* (0-0.045) ng/ml Total Protein 6.8 (6.4-8.2) gm/dl Albumin 3.2 L (3.4-5.0) gm/dl Globulin 3.6 (2.5-4.0) gm/dl Albumin/Globulin Ratio 0.9 (0.9-2) Procalcitonin (0-0.5) ng/ml Urine Color Urine Appearance (Clear) Urine pH (4.5-7.5) Ur Specific [place] (1.000-1.030) Urine Protein (Negative) Urine Glucose (UA) (Negative) Urine Ketones (Negative) Urine Blood (Negative) Urine Nitrite (Negative) Urine Bilirubin (Negative) Urine Urobilinogen (Negative) Ur Leukocyte Esterase (Negative) Urine WBC (Auto) (0-5) /hpf Urine RBC (Auto) (0-4) /hpf U Hyaline Cast (Auto) (0-5) /lpf U Epithel Cells (Auto) (0-5) /lpf Urine Bacteria (Auto) (Negative) Blood Type Antibody Screen Crossmatch 06/01/19 06/01/19 06/01/19 Range/Units 11:07 11:07 11:12 WBC (4.8-10.8) K/uL RBC (4.7-6.1) M/uL Hgb (14.0-18.0) g/dL Hct (42-52) % MCV (80-100) fL MCH (25-34) pg MCHC (32-36) g/dL RDW Std Deviation (36.4-46.3) fL RDW Coeff of Katherine (11.5-14.5) % Plt Count (130-400) K/uL MPV (7.4-10.4) fL Immature Gran % (Auto) % Neut % (Auto) % Lymph % (Auto) % Andrews % (Auto) % Eos % (Auto) % Baso % (Auto) % Immature Gran # (Auto) (0.00-0.02) K/uL Neut # (Auto) (1.4-6.5) K/uL Lymph # (Auto) (1.2-3.4) K/uL Andrews # (Auto) (0.11-0.59) K/uL Eos # (Auto) (0-0.5) K/uL Baso # (Auto) (0-0.2) K/uL Acanthocytes (Spur) PT (9.0-12.0) Seconds INR (0.9-1.1) APTT (21.0-31.0) Seconds PTT Ratio Sodium (136-145) mmol/L Potassium (3.5-5.1) mmol/L Chloride (98-107) mmol/L Carbon Dioxide (21-32) mmol/L Anion Gap (3-11) BUN (7-18) mg/dl Creatinine (0.6-1.4) mg/dl Est Cr Clr Drug Dosing ml/min Est GFR ( Amer) Est GFR (Non-Af Amer) BUN/Creatinine Ratio (10-20) Glucose (70-99) mg/dl POC Lactic Acid Jordi 1.69 (0.90-1.70) mmol/L Calcium (8.5-10.1) mg/dl Magnesium (1.8-2.4) mg/dl Total Bilirubin (0.2-1) mg/dl AST (15-37) U/L ALT (12-78) U/L Alkaline Phosphatase (45-117) U/L Troponin I (0-0.045) ng/ml Total Protein (6.4-8.2) gm/dl Albumin (3.4-5.0) gm/dl Globulin (2.5-4.0) gm/dl Albumin/Globulin Ratio (0.9-2) Procalcitonin 0.06 (0-0.5) ng/ml Urine Color Urine Appearance (Clear) Urine pH (4.5-7.5) Ur Specific [place] (1.000-1.030) Urine Protein (Negative) Urine Glucose (UA) (Negative) Urine Ketones (Negative) Urine Blood (Negative) Urine Nitrite (Negative) Urine Bilirubin (Negative) Urine Urobilinogen (Negative) Ur Leukocyte Esterase (Negative) Urine WBC (Auto) (0-5) /hpf Urine RBC (Auto) (0-4) /hpf U Hyaline Cast (Auto) (0-5) /lpf U Epithel Cells (Auto) (0-5) /lpf Urine Bacteria (Auto) (Negative) Blood Type O Positive Antibody Screen POSITIVE A Crossmatch See Detail 06/01/19 Range/Units 12:16 WBC (4.8-10.8) K/uL RBC (4.7-6.1) M/uL Hgb (14.0-18.0) g/dL Hct (42-52) % MCV (80-100) fL MCH (25-34) pg MCHC (32-36) g/dL RDW Std Deviation (36.4-46.3) fL RDW Coeff of Katherine (11.5-14.5) % Plt Count (130-400) K/uL MPV (7.4-10.4) fL Immature Gran % (Auto) % Neut % (Auto) % Lymph % (Auto) % Andrews % (Auto) % Eos % (Auto) % Baso % (Auto) % Immature Gran # (Auto) (0.00-0.02) K/uL Neut # (Auto) (1.4-6.5) K/uL Lymph # (Auto) (1.2-3.4) K/uL Andrews # (Auto) (0.11-0.59) K/uL Eos # (Auto) (0-0.5) K/uL Baso # (Auto) (0-0.2) K/uL Acanthocytes (Spur) PT (9.0-12.0) Seconds INR (0.9-1.1) APTT (21.0-31.0) Seconds PTT Ratio Sodium (136-145) mmol/L Potassium (3.5-5.1) mmol/L Chloride (98-107) mmol/L Carbon Dioxide (21-32) mmol/L Anion Gap (3-11) BUN (7-18) mg/dl Creatinine (0.6-1.4) mg/dl Est Cr Clr Drug Dosing ml/min Est GFR ( Amer) Est GFR (Non-Af Amer) BUN/Creatinine Ratio (10-20) Glucose (70-99) mg/dl POC Lactic Acid Jordi (0.90-1.70) mmol/L Calcium (8.5-10.1) mg/dl Magnesium (1.8-2.4) mg/dl Total Bilirubin (0.2-1) mg/dl AST (15-37) U/L ALT (12-78) U/L Alkaline Phosphatase (45-117) U/L Troponin I (0-0.045) ng/ml Total Protein (6.4-8.2) gm/dl Albumin (3.4-5.0) gm/dl Globulin (2.5-4.0) gm/dl Albumin/Globulin Ratio (0.9-2) Procalcitonin (0-0.5) ng/ml Urine Color Yellow Urine Appearance Cloudy A (Clear) Urine pH 7.0 (4.5-7.5) Ur Specific [place] 1.013 (1.000-1.030) Urine Protein 3+ H (Negative) Urine Glucose (UA) Trace H (Negative) Urine Ketones Negative (Negative) Urine Blood Trace H (Negative) Urine Nitrite Negative (Negative) Urine Bilirubin Negative (Negative) Urine Urobilinogen Negative (Negative) Ur Leukocyte Esterase 2+ H (Negative) Urine WBC (Auto) >30 H (0-5) /hpf Urine RBC (Auto) 0-4 (0-4) /hpf U Hyaline Cast (Auto) 1-5 (0-5) /lpf U Epithel Cells (Auto) 0-5 (0-5) /lpf Urine Bacteria (Auto) Negative (Negative) Blood Type Antibody Screen Crossmatch Imaging Data Radiologist's Impression: Radiology results as stated below per my review and the radiologist's interpretation: XR chest 1V portable HISTORY: Dyspnea COMPARISON: Chest 02/12/2019. FINDINGS: No pneumothorax. Bilateral perihilar hazy airspace opacities with interstitial thickening. The heart is borderline enlarged. There may be trace bilateral pleural effusions. Left-sided pacemaker/defibrillator is noted. IMPRESSION: Bilateral perihilar hazy airspace opacities with interstitial thickening. There may be trace bilateral pleural effusions. Findings likely represent asymmetric pulmonary edema. Electronically signed by: Sharath Lilly M.D. 06/01/2019 11:11 AM ECG Data Attestation: I personally reviewed and interpreted this ECG as follows: Indication: SOB/dyspnea Rate (beats per minute): 75 Rhythm: other (ventricularly paced ) Findings: no ST depression and no ST elevation Blood Pressure Blood Pressure Findings: Elevated blood pressure Blood Pressure Disposition: further management by hospitalist STU Parra Patient is an 88-year-old gentleman with a past medical history including CKD, hypertension, CAD with AICD, pneumonia, hyperlipidemia, and kidney stones presenting to the emergency department today complaining of productive cough and feeling a bit short of breath. Patient significantly noted to be hypoxic on room air. Not normally on supplemental oxygen. States endorses a bit of a productive cough and shortness of breath just overnight. Has been receiving iron infusions this week in the outpatient clinic due to iron deficiency anemia. History of pneumonia back in January. No significant edema noted. Little bit of mid chest pain reported. Given his history of pneumonia and concern for possible infectious source lactate, procalcitonin, blood cultures were obtained in addition to basic laboratory studies. EKG and chest x-ray obtained. Did give a DuoNeb here. Has diminished bases. Chest x-ray has some asymmetric pulmonary edema per radiology with trace effusion. Patient without significant leukocytosis and is again afebrile here. Lactic acid not sufficiently elevated. Renal dysfunction continued and given this and concern he may have some increased fluid overload causing his hypoxia believe close monitor to admission should be pursued. Hemoglobin also noted to be 7 today; seem chronic downtrend. Will order a unit of blood transfused. Urinalysis later returned with concerning signs for infection. A dose of ceftriaxone ordered. Impression & Plan Anemia, Hypoxia, Breath shortness, Acute UTI Critical Care Time Critical Care Time: Yes Total Critical Care Time: 36 I have personally spent 36 minutes of critical care time in the direct management of this patient. This includes bedside care, interpretation of diagnostic studies, and testing, discussion with consultants, patient, and family members, and other required patient management activities. This 36 minutes is in excess of all separately billable procedures. Discharge Plan Visit Data *Final* Discharge Date/Time: 06/01/19 15:31 Chief Complaint: Cough Stated Complaint: POSSIBLE PNEUMONIA ED Provider: Rogelio Osei Discharge Problem: Anemia, Hypoxia, Breath shortness, Acute UTI Patient Disposition: Being Evaluated by Hospitalist Discharge Instructions Interventions: ED Discharge Assessment Last Done: 06/01/19 15:31 Discharge Problem: Anemia Qualifiers: Anemia type: unspecified type Qualified Code(s): D64.9 - Anemia, unspecified The scribe's documentation has been prepared under my direction and personally reviewed by me in its entirety. I confirm that the note above accurately reflects all work, treatment, procedures, and medical decision making performed by me.
[2019-06-01] MEDS ORDERED: POLYETHYLENE (MIRALAX) 17 GM PACK PO PRN (15:49)
[2019-06-01] MEDS ORDERED: NITROGLYCERIN SL 0.4 MG/TAB TAB SL PRN (15:49)
[2019-06-01] MEDS ORDERED: ALUMINUM/MAGNESIUM SUSP 30 ML UDC PO PRN (15:49)
[2019-06-01] MEDS ORDERED: ACETAMINOPHEN 325 MG TAB PO PRN (15:49)
[2019-06-01] MEDS ORDERED: MAGNESIUM HYDROXIDE SUSP 30 ML UDC PO PRN (15:49)
[2019-06-01] MEDS ORDERED: ZOLPIDEM TARTRATE 5 MG TAB PO PRN (15:49)
[2019-06-01] MEDS ORDERED: INFLUENZA ADMINISTRATION CHARGE ONE (16:15)
[2019-06-01] MEDS ORDERED: INFLUENZA VIRUS QUAD VACCINE 0.5 ML SYR IM ONE (16:15)
[2019-06-01] MEDS: FUROSEMIDE 20 MG in SYRINGE 0 ML IV SCH (16:32)
[2019-06-01] MEDS: AMLODIPINE BESYLATE 5 MG TAB PO SCH (16:33)
[2019-06-01] MEDS: FERROUS GLUCONATE 324 MG TAB PO SCH (16:33)
[2019-06-01] MEDS: ATORVASTATIN 40 MG TAB PO SCH (16:33)
[2019-06-01] MEDS: MULTIVITAMIN TAB PO SCH (16:33)
[2019-06-01] MEDS: METOPROLOL SUCC 50MG EXT REL TAB PO SCH (16:34)
[2019-06-01] MEDS: SODIUM BICARBONATE 650 MG TAB PO SCH (20:20)
--- NOTE | 2019-06-01 21:59 | History & Physical Report ---
Date of Service June 01, 2019 Assessment & Plan (1) Anemia: Admit to inpatient on telemetry for severe anemia Continue furosemide gluconate 324 mg p.o. twice daily. Plan to give 1 unit of blood as soon as available since patient has antibodies from previously received blood transfusions Monitor vital signs every 4 hours Monitor electrolytes and blood count daily We will check for fecal occult blood DVT prophylaxis SCDs and teds Consulted nephrology Dr. Saeed Full code Present on Admission?: Yes (2) Elevated troponin: Troponin appears to be elevated due to pulmonary congestion and pulmonary edema and strain on the heart. Continue trending down troponin. No acute changes on EKG. Patient does not report chest pain. TTE pending. Consult cardiology. Patient has chronically elevated troponin. He is biventricular ICD was interrogated today and premium service representative recommendation there was nothing wrong with it. He noted that the patient is congested and that his pulmonary pressure was increased. Started diuresis with Lasix 20 mg twice daily. Strict in and outs and daily weight. Recommended to restrict p.o. intake to 1200 mils daily. Present on Admission?: Yes (3) Hypertension: Continue home medicine: Amlodipine 10 mg p.o. daily, metoprolol succinate 200 mg p.o. daily, nitroglycerin 0.4 mg sublingual as needed. Present on Admission?: Yes (4) Diabetes mellitus type 2 with complications: Patient does not take any medication at home for diabetes type 2. Diet controlled. Hemoglobin A1c pending. Present on Admission?: Yes (5) CKD (chronic kidney disease) stage 4, GFR 15-29 ml/min: Consult nephrology. Avoid nephrotoxic agents Continue sodium bicarbonate 650 mg p.o. twice daily Present on Admission?: Yes (6) Hyperlipidemia: Check lipid panel in a.m., continue atorvastatin 40 mg p.o. daily Present on Admission?: Yes History of Present Illness Chief Complaint: Generalized weakness and elevated troponin Primary Care Provider: Raul Lemos MD Patient is a 88 years old male with past medical history of CKD stage IV, hypertension, biventricular ICD, coronary artery disease, dyslipidemia, right carotid bruit, chronically elevated troponin, hyperlipidemia, and NSTEMI in the past, who was sent by his renal specialist Dr. Saeed to be seen in the emergency room because of very low hemoglobin of 7 and severe anemia. Patient also expressed a generalized weakness that has been ongoing for some time. Patient denies fever chills chest pain shortness of breath abdominal pain frequency urgency hemoptysis hematemesis hematuria dysuria. Patient is still not on hemodialysis. Patient has antibodies in his blood which is difficult for blood transfusion. Blood transfusion was not immediately given in the ER due to necessity to get appropriate blood. Chest x-rays shows: Bilateral perihilar hazy 80s airspace opacities with interstitial thickening. There may be trace bilateral pleural effusion. Findings likely represent asymmetric pulmonary edema. Viable cell count of 10.39, hemoglobin 7, hematocrit 21.8, platelets are 197, PT 10.4, INR 1, APTT 27.3. Sodium 140, potassium 4.9, chloride 110, BUN 46, creatinine 4.11, GFR 12.1, lactic acid 1.69 magnesium 2.5. Decision was made to admit patient to PCU on telemetry for a blood transfusion and management of congestive heart failure with pulmonary edema and also for troponin anemia which appears to be due to pulmonary congestion and cardiac strain. Allergies Allergy/AdvReac Type Severity Reaction Status Date / Time morphine AdvReac Severe SOB, Verified 06/01/19 11:30 Respiratory distress Home Medications Home Medications Medication Instructions Recorded Confirmed Type Cranberry Plus Vitamin C 1 cap PO DAILY 01/04/19 06/01/19 History amlodipine 10 mg PO DAILY 01/04/19 06/01/19 History ergocalciferol (vitamin D2) 50,000 unit PO MONTHLY 01/04/19 06/01/19 History [Vitamin D2] ferrous gluconate 324 mg PO BIDM 01/04/19 06/01/19 History flaxseed oil 1,000 mg PO DAILY 01/04/19 06/01/19 History metoprolol succinate 200 mg PO DAILY 01/04/19 06/01/19 History multivitamin 1 tab PO DAILY 01/04/19 06/01/19 History nitroglycerin 0.4 mg SUBLINGUAL DIRECTED PRN 01/04/19 06/01/19 History atorvastatin 40 mg tablet 40 mg PO DAILY #90 tab 02/12/19 06/01/19 Rx sodium bicarbonate 650 mg PO BID 05/03/19 06/01/19 History Past Med/Surg History Medical History Anemia (Chronic) Chronic kidney disease, stage 4 (severe) (Chronic) Hypertension (Chronic) Biventricular ICD (implantable cardioverter-defibrillator) in place (Acute) CAD (coronary artery disease) (Acute) Dyslipidemia (Acute) Right carotid bruit (Acute) Stage III chronic kidney disease (Acute) Vitamin D deficiency (Acute) Pacemaker Chronic back pain (Acute) Pneumonia (Acute) discharged 5 days ago for "walking pneumonia" per pt. Arthritis Hyperlipidemia Kidney stones Myocardial Infarction Surgical History History of left knee replacement (Resolved) History of appendectomy (Acute) History of bowel resection (Acute) hx of colostomy which has since been reversed. History of colostomy (Acute) History of colostomy reversal (Acute) History of cardiac cath Family History Mother Heart disease Brother Rheumatic heart disease Other FH: early Family history non-contributory Social History Preferred Language: Yoruba Communication Ability: Effective Certified Medical Technician Assistant Required: No Beliefs That Will Affect Care: Scientologist Scientologist Beliefs: Druze Current Living Situation: Alone Current Living Situation Comment: daughter is caregiver and stays with him, lives "4 miles away" Other Information That Helps Us Care for You: No Feels Safe at Home: Yes Safety Concerns: Feels Safe At This Time Smoking Status: Former smoker Second Hand Exposure: No ; Hx Alcohol Use: No Hx Substance Use: No Review of Systems Review of Systems: All systems reviewed & are unremarkable except as noted in HPI & below Physical Exam Constitutional: WD/WN, vitals as above well developed and + cachectic Eyes: PERRL, conjunctivae normal, anicteric sclerae Pale sclera ENMT: external ear and nose normal, oropharynx normal Respiratory: normal respiratory effort, lungs clear to auscultation Cardiovascular: Heart Sounds: normal S1 and normal S2 Palpation: + palpable S3 Vessels: dorsalis pedis pulses present Extremities: + pedal edema Gastrointestinal (Abdomen): normal bowel sounds, soft, nontender, no hepatosplenomegaly Musculoskeletal: no cyanosis or clubbing, extremities motor strength 5/5 Skin: no rashes, warm and dry Neurologic: patellar DTR's 2+ bilat, sensation intact Psychiatric: A+Ox3, euthymic affect Lymphatic: no cervical or axillary lymphadenopathy Results & Data Vital Signs (Past 12 Hours) Vital Signs Temp Pulse Pulse Pulse Resp BP BP 06/01/19 19:52 36.3 C L 60 18 161/68 H 06/01/19 16:24 36.6 C 74 20 06/01/19 15:30 66 11 L 153/58 H 06/01/19 15:00 65 12 164/64 H 06/01/19 14:47 75 20 06/01/19 14:30 65 16 149/51 H 06/01/19 14:00 67 11 L 154/55 H 06/01/19 13:30 17 161/66 H 06/01/19 13:00 85 19 174/80 H 06/01/19 12:30 79 12 161/69 H 06/01/19 12:09 67 20 06/01/19 12:00 135/58 L 06/01/19 11:30 65 14 149/57 H 06/01/19 11:26 62 12 06/01/19 11:00 73 20 140/58 L 06/01/19 10:53 72 15 147/62 H 06/01/19 10:50 74 10 L 06/01/19 10:33 36.4 C L 81 20 153/72 H BP Pulse Ox 06/01/19 19:52 97 06/01/19 16:24 166/81 H 98 06/01/19 15:30 100 06/01/19 15:00 100 06/01/19 14:47 149/51 H 99 06/01/19 14:30 100 06/01/19 14:00 97 06/01/19 13:30 87 L 06/01/19 13:00 91 06/01/19 12:30 92 06/01/19 12:09 99 06/01/19 12:00 99 06/01/19 11:30 100 06/01/19 11:26 98 06/01/19 11:00 94 06/01/19 10:53 96 06/01/19 10:50 95 06/01/19 10:33 83 L Code Status & VTE Plan Code Status Full code VTE Prophylaxis Plan VTE Prophylaxis will be ordered: No PG Care Time/CCT Total # of Minutes Spent Total Time Spent with Patient: Total time spent is greater than 50% in coordination of care (as documented) at patient's floor/unit and/or counseling patient: (1) Anemia Anemia type: unspecified type Qualified Code(s): D64.9 - Anemia, unspecified
[2019-06-01 22:33] LABS: Troponin I 0.109 ng/ml (0-0.045)
[2019-06-01] MEDS: DOXYCYCLINE HYCLATE 100 MG in DEXTROSE 5% 100 ML IV SCH (23:50)
[2019-06-02 04:11] LABS: Basophils # (auto) 0.02 K/uL (0-0.2); Basophils % (auto) 0.2 %; Eosinophils # (auto) 0.08 K/uL (0-0.5); Eosinophils % (auto) 0.7 %; Hematocrit (blood only) 22.2 % (42-52); Hemoglobin 7.2 g/dL (14.0-18.0); Immature Granulocytes # (auto) 0.02 K/uL (0.00-0.02); Immature Granulocytes % (auto) 0.2 %; Lymphocytes # (auto) 0.88 K/uL (1.2-3.4); Lymphocytes % (auto) 7.6 %; Mean Corpuscular Hemoglobin 27.7 pg (25-34); Mean Corpuscular Hgb Conc 32.4 g/dL (32-36); Mean Corpuscular Volume 85.4 fL (80-100); Mean Platelet Volume 8.8 fL (7.4-10.4); Monocytes # (auto) 0.68 K/uL (0.11-0.59); Monocytes % (auto) 5.9 %; Neutrophils % (auto) 85.4 %; Platelet Count 204 K/uL (130-400); RDW Coefficient of Variation 15.8 % (11.5-14.5); RDW Standard Deviation 48.9 fL (36.4-46.3); White Blood Count 11.58 K/uL (4.8-10.8)
[2019-06-02 04:33] LABS: RBC Morphology Unremarkable
[2019-06-02 04:38] LABS: Albumin Level 3.2 gm/dl (3.4-5.0); BUN Creatinine Ratio 11.9 (10-20); Calcium 8.3 mg/dl (8.5-10.1); Creatinine Clr Calc Pharmacy 12.7 ml/min; Est GFR (African American) 13.9; Potassium 5.3 mmol/L (3.5-5.1)
[2019-06-02 04:45] LABS: Albumin Globulin Ratio 0.9 (0.9-2); Bilirubin,Total 0.5 mg/dl (0.2-1); Globulin 3.6 gm/dl (2.5-4.0); Total Protein 6.8 gm/dl (6.4-8.2); Troponin I 0.102 ng/ml (0-0.045)
[2019-06-02 07:17] LABS: Estimated Average Glucose 100 mg/dl; Hemoglobin A1C 5.1 % (4.5-5.6)
[2019-06-02] MEDS: SODIUM BICARBONATE 650 MG TAB PO SCH ×2 (08:23→19:43)
[2019-06-02] MEDS: AMLODIPINE BESYLATE 5 MG TAB PO SCH (08:24)
[2019-06-02] MEDS: ATORVASTATIN 40 MG TAB PO SCH (08:24)
[2019-06-02] MEDS: FUROSEMIDE 20 MG in SYRINGE 0 ML IV SCH ×2 (08:24→15:56)
[2019-06-02] MEDS: MULTIVITAMIN TAB PO SCH (08:24)
[2019-06-02] MEDS: METOPROLOL SUCC 50MG EXT REL TAB PO SCH (08:24)
[2019-06-02] MEDS: FERROUS GLUCONATE 324 MG TAB PO SCH ×2 (08:24→15:56)
--- NOTE | 2019-06-02 08:46 | Hospitalist Progress Note ---
Date of Service June 02, 2019 Assessment & Plan (1) Anemia: Continue admit to inpatient on telemetry for severe anemia Continue furosemide gluconate 324 mg p.o. twice daily. Plan to give 1 -2 units of blood as soon as available since patient has antibodies from previously received blood transfusions Appreciate cardiology recommendations Dr. Guerrero Started hydralazine 10 mg p.o. 3 times daily Monitor vital signs every 4 hours Monitor electrolytes and blood count daily We will check for fecal occult blood DVT prophylaxis SCDs and teds nephrology Dr. Saeed will see patient next week unless emergent issues are ongoing. Full code (2) Elevated troponin: Appreciate cardiology recommendations. Patient is not a candidate at this time for catheterization. Troponin appears to be elevated due to pulmonary congestion and pulmonary edema and strain on the heart. No acute changes on EKG. Patient does not report chest pain. TTE significant for left ventricle mild to moderate dilatation. Ejection fraction is 40 to 45%. The basal inferi or and basal to mid inferior lateral anderson are akinetic. The anterior lateral wall is hypokinetic. Moderate concentric left ventricular hypertrophy. Aortic valve sclerosis is mild without significant aortic valvular stenosis. There is severe pulmonary hypertension with PA pressure of 65 mmHg. Elevated left atrial pressures. Patient has chronically elevated troponin. He is biventricular ICD was interrogated yesterday and automotive leasing sales representative recommendation there was nothing wrong with it. Continue diuresis with Lasix 20 mg twice daily. Strict in and outs and daily weight. Restrict free p.o. fluid to 1200 (3) Hypertension: Continue home medicine: Added hydralazine 10 mg p.o. 3 times daily for better control of blood pressure. Amlodipine 10 mg p.o. daily, metoprolol succinate 200 mg p.o. daily, nitroglycerin 0.4 mg sublingual as needed. (4) Diabetes mellitus type 2 with complications: Patient does not take any medication at home for diabetes type 2. Diet controlled. Hemoglobin A1c pending. (5) CKD (chronic kidney disease) stage 4, GFR 15-29 ml/min: Shunt will see next week in his office if no emergent issue occurs. Avoid nephrotoxic agents Continue sodium bicarbonate 650 mg p.o. twice daily (6) Hyperlipidemia: Check lipid panel in a.m., continue atorvastatin 40 mg p.o. daily Subjective Patient seen and examined at the bedside. He reports feeling much better this morning he had net output of 1326 mils since yesterday and but he is p.o. intake was 1600 so he would need to be on free water restriction of 1200 mils. Hemoglobin today 7.2 and yesterday was 7. Patient still did not receive unit of blood because [place] need to check blood for antibodies since patient is sensitized. Patient denies fever chills chest pain shortness of breath, abdominal pain, frequency, urgency, hemoptysis. Review of Systems Review of Systems: All systems reviewed & are unremarkable except as noted in HPI & below Physical Exam Constitutional: WD/WN, vitals as above well developed and + cachectic Eyes: PERRL, conjunctivae normal, anicteric sclerae ENMT: external ear and nose normal, oropharynx normal Respiratory: normal respiratory effort, lungs clear to auscultation Cardiovascular: Heart Sounds: normal S1 and normal S2 Palpation: + palpable S3 Vessels: dorsalis pedis pulses present Extremities: + pedal edema Gastrointestinal (Abdomen): normal bowel sounds, soft, nontender, no hepatosplenomegaly Musculoskeletal: no cyanosis or clubbing, extremities motor strength 5/5 Skin: no rashes, warm and dry Neurologic: patellar DTR's 2+ bilat, sensation intact Psychiatric: A+Ox3, euthymic affect Lymphatic: no cervical or axillary lymphadenopathy Results & Data Vital Signs (Past 12 Hours) Vital Signs Temp Pulse Resp BP BP Pulse Ox 06/02/19 08:00 36.5 C 68 20 177/72 H 95 06/02/19 03:36 36.4 C L 66 18 165/63 H 94 06/01/19 22:56 36.8 C 63 19 160/71 H 96 PG Care Time/CCT Total # of Minutes Spent Total Time Spent with Patient: Total time spent is greater than 50% in coordin ation of care (as documented) at patient's floor/unit and/or counseling patient: (1) Anemia Anemia type: unspecified type Qualified Code(s): D64.9 - Anemia, unspecified
[2019-06-02] MEDS ORDERED: NON-FORMULARY MEDICATION (Flaxseed Oil 1,000 MG) PO SCH (09:00)
[2019-06-02] MEDS ORDERED: NON-FORMULARY MEDICATION (Cranberry Conc-Ascorbic Acid [Cranberry Plus Vitamin C] 1 CAP) PO SCH (09:00)
[2019-06-02] MEDS: DOXYCYCLINE HYCLATE 100 MG in DEXTROSE 5% 100 ML IV SCH ×2 (09:37→21:58)
--- NOTE | 2019-06-02 12:24 | Consultation Report ---
DATE OF CONSULTATION: 06/02/2019 REQUESTING PHYSICIAN: Dr. Ly. [employer]ED TRUCK DRIVER: Haroon Guerrero DO., [facility] Cardiology for Dr. Antony Sterling, who is the patient's regular learning coach. It was a pleasure to see the patient today in consultation with regards to his profound anemia with a hemoglobin of 7, anginal symptoms with his anemia and significant hypertension. He was admitted to the hospital for severe anemia. He is awaiting a blood transfusion due to his significant antibodies. He was seen in Nephrology's office by Dr. Saeed and was sent to the Emergency Room due to hemoglobin of 7. He has had some weakness and fatigue. He is actually unable to walk for the most part at home as he needs to use a scooter due to previous knee surgery. He does describe anginal symptoms where if he goes from sitting to standing, he actually has some chest tightness and pressure. It can last anywhere from 30 seconds to 5 minutes. He denies any radiation to his neck, jaw, back or arm. He denies being short of breath or nauseous with it. As discussed above, he does not walk very far such that it leads to anginal symptoms. He denies any lower extremity edema. He does note occasional palpitations. He denies any presyncope or syncope. He denies any falls. He does not wear oxygen on a regular basis. The rest of complete review of systems is negative. PAST MEDICAL HISTORY: 1. Biventricular defibrillator. 2. Coronary artery disease. 3. Ischemic cardiomyopathy. 4. History of third-degree AV block. 5. Hypertension. 6. Most recent ejection fraction is normal status post biventricular pacing. 7. Angina. 8. Severe anemia. 9. Chronic kidney disease with a baseline creatinine of approximately 4.0. 10. Diabetes mellitus type 2. SOCIAL HISTORY: He lives with his daughter who is his caregiver. He denies any current tobacco. He is retired. FAMILY HISTORY: Noncontributory. ALLERGIES: TO MORPHINE. MEDICATIONS: Reviewed in electronic medical record. PHYSICAL EXAMINATION: GENERAL: He is awake, alert, oriented x3, looks younger than his stated age. VITAL SIGNS: Her heart rate is 61, respirations 18, blood pressure 149/67, his sat is 97% on room air. HEENT: 2+ carotid upstrokes, no evidence of carotid bruits. Jugular venous pressure did not appear elevated. His sclerae are anicteric. His hearing is diminished. LUNGS: Clear to auscultation bilaterally. No rales, rhonchi or wheezing. HEART: Regular rate and rhythm. No appreciable murmurs, rubs or gallops. ABDOMEN: Soft, nontender, nondistended. Positive bowel sounds. EXTREMITIES: No clubbing, cyanosis or edema. PSYCHIATRIC: His affect appeared appropriate. DIAGNOSTIC STUDIES: EKG: Sinus rhythm, BiV paced. Hemoglobin was 7.2, platelet count of 204. Sodium 136, potassium 5.3, BUN 49, creatinine 4.15. Troponin is trending down with a peak of 0.109. His proBNP is 22,000. IMPRESSION: 1. Profound anemia. 2. Angina. 3. Known coronary artery disease. 4. Status post biventricular defibrillator. 5. History of ischemic cardiomyopathy, most recently with normal LV function. 6. Hypertension. PLAN: At this point given his profound anemia, his only option for his coronary artery disease is medical therapy. It is not surprising though with a hemoglobin of 7 that he would have angina. I would transfuse him to keep his hemoglobin greater than 9. Additionally, I would help lower his blood pressure. He is already on the max dose of Norvasc and he is on a very large dose of Toprol. Options at this point include hydralazine 10 mg t.i.d. or adding long-acting nitrates to his medical regimen. Assuming his angina resolves with transfusions, I would use hydralazine. If he continues to have angina even with his transfusions, then Imdur would be a better option. Renal is following him for his chronic kidney disease. He is not a candidate for catheterization given his anemia as well as the fact that a catheterization and the associated dye load would put him on dialysis. We will continue to follow him with you, currently he is angina free. Thank you for allowing me to participate in his care.
--- NOTE | 2019-06-02 12:45 | Hospitalist Progress Note ---
Date of Service June 02, 2019 Assessment & Plan (1) Anemia: Admit to inpatient on telemetry for severe anemia Continue furosemide gluconate 324 mg p.o. twice daily. Plan to give 1 unit of blood as soon as available since patient has antibodies from previously received blood transfusions Monitor vital signs every 4 hours Monitor electrolytes and blood count daily We will check for fecal occult blood DVT prophylaxis SCDs and teds Consulted nephrology Dr. Saeed Full code (2) Elevated troponin: Troponin appears to be elevated due to pulmonary congestion and pulmonary edema and strain on the heart. Continue trending down troponin. No acute changes on EKG. Patient does not report chest pain. TTE pending. Consult cardiology. Patient has chronically elevated troponin. He is biventricular ICD was interrogated today and patient portal representative recommendation there was nothing wrong with it. He noted that the patient is congested and that his pulmonary pressure was increased. Started diuresis with Lasix 20 mg twice daily. Strict in and outs and daily weight. Recommended to restrict p.o. intake to 1200 mils daily. (3) Hypertension: Continue home medicine: Amlodipine 10 mg p.o. daily, metoprolol succinate 200 mg p.o. daily, nitroglycerin 0.4 mg sublingual as needed. (4) Diabetes mellitus type 2 with complications: Patient does not take any medication at home for diabetes type 2. Diet controlled. Hemoglobin A1c pending. (5) CKD (chronic kidney disease) stage 4, GFR 15-29 ml/min: Consult nephrology. Avoid nephrotoxic agents Continue sodium bicarbonate 650 mg p.o. twice daily (6) Hyperlipidemia: Check lipid panel in a.m., continue atorvastatin 40 mg p.o. daily Subjective Patient seen and examined at bedside. Sitting up in the chair. Reports feeling much better today. He received Lasix last night and this morning and his diuresis is satisfactory Physical Exam Constitutional: WD/WN, vitals as above well developed and + cachectic Eyes: PERRL, conjunctivae normal, anicteric sclerae ENMT: external ear and nose normal, oropharynx normal Respiratory: normal respiratory effort, lungs clear to auscultation Cardiovascular: Heart Sounds: normal S1 and normal S2 Palpation: + palpable S3 Vessels: dorsalis pedis pulses present Extremities: + pedal edema Gastrointestinal (Abdomen): normal bowel sounds, soft, nontender, no hepatosplenomegaly Musculoskeletal: no cyanosis or clubbing, extremities motor strength 5/5 Skin: no rashes, warm and dry Neurologic: patellar DTR's 2+ bilat, sensation intact Psychiatric: A+Ox3, euthymic affect Lymphatic: no cervical or axillary lymphadenopathy Results & Data Vital Signs (Past 12 Hours) Vital Signs Temp Pulse Resp BP BP Pulse Ox 06/02/19 11:40 36.3 C L 61 18 149/67 H 97 06/02/19 11:31 143/63 H 06/02/19 08:00 36.5 C 68 20 177/72 H 95 06/02/19 03:36 36.4 C L 66 18 165/63 H 94 PG Care Time/CCT Total # of Minutes Spent Total Time Spent with Patient: Total time spent is greater than 50% in coordination of care (as documented) at patient's floor/unit and/or counseling patient: (1) Anemia Anemia type: unspecified type Qualified Code(s): D64.9 - Anemia, unspecified
[2019-06-02] MEDS: HydrALAZINE 10 MG TAB PO SCH ×2 (14:25→21:30)
[2019-06-02] MEDS: cefTRIAXone SODIUM 1,000 MG in DEXTROSE 5% 50 ML IV SCH (21:10)
[2019-06-02 23:43] LABS: Hematocrit (blood only) 23.3 % (42-52); Hemoglobin 7.7 g/dL (14.0-18.0)
[2019-06-03] MEDS ORDERED: SODIUM CHLORIDE 0.9% 250 ML IV PRN (00:06)
[2019-06-03 05:34] LABS: Hemoglobin 9.3 g/dL (14.0-18.0)
[2019-06-03 05:35] LABS: Basophils # (auto) 0.01 K/uL (0-0.2); Basophils % (auto) 0.1 %; Eosinophils # (auto) 0.06 K/uL (0-0.5); Eosinophils % (auto) 0.6 %; Hematocrit (blood only) 28.5 % (42-52); Hemoglobin 9.3 g/dL (14.0-18.0); Immature Granulocytes # (auto) 0.04 K/uL (0.00-0.02); Immature Granulocytes % (auto) 0.4 %; Lymphocytes % (auto) 8.5 %; Mean Corpuscular Hemoglobin 28.7 pg (25-34); Mean Corpuscular Hgb Conc 32.6 g/dL (32-36); Monocytes # (auto) 0.98 K/uL (0.11-0.59); Monocytes % (auto) 9.2 %; Neutrophils # (auto) 8.64 K/uL (1.4-6.5); Neutrophils % (auto) 81.2 %; Platelet Count 153 K/uL (130-400); Red Blood Count 3.24 M/uL (4.7-6.1); White Blood Count 10.63 K/uL (4.8-10.8)
[2019-06-03 05:55] LABS: BUN Creatinine Ratio 13.6 (10-20); Calcium 8.4 mg/dl (8.5-10.1); Creatinine Clr Calc Pharmacy 13.6 ml/min; Est GFR (African American) 15.1
[2019-06-03 06:04] LABS: Albumin Globulin Ratio 0.8 (0.9-2); Bilirubin,Total 1.5 mg/dl (0.2-1); Globulin 3.9 gm/dl (2.5-4.0); Total Protein 6.9 gm/dl (6.4-8.2)
[2019-06-03] MEDS: MULTIVITAMIN TAB PO SCH (08:01)
[2019-06-03] MEDS: METOPROLOL SUCC 50MG EXT REL TAB PO SCH (08:01)
[2019-06-03] MEDS: SODIUM BICARBONATE 650 MG TAB PO SCH ×2 (08:01→20:00)
[2019-06-03] MEDS: FUROSEMIDE 20 MG in SYRINGE 0 ML IV SCH ×2 (08:01→15:53)
[2019-06-03] MEDS: FERROUS GLUCONATE 324 MG TAB PO SCH ×2 (08:01→15:53)
[2019-06-03] MEDS: HydrALAZINE 10 MG TAB PO SCH ×3 (08:01→20:00)
[2019-06-03] MEDS: ATORVASTATIN 40 MG TAB PO SCH (08:01)
[2019-06-03] MEDS: AMLODIPINE BESYLATE 5 MG TAB PO SCH (08:02)
--- NOTE | 2019-06-03 09:18 | History & Physical Report ---
Date of Service June 03, 2019 Assessment & Plan (1) Anemia: Continue admit to inpatient on telemetry for severe anemia Continue furosemide gluconate 324 mg p.o. twice daily. Plan to give 1 -2 units of blood as soon as available since patient has antibodies from previously received blood transfusions Appreciate cardiology recommendations Dr. Guerrero Started hydralazine 10 mg p.o. 3 times daily Monitor vital signs every 4 hours Monitor electrolytes and blood count daily We will check for fecal occult blood DVT prophylaxis SCDs and teds nephrology Dr. Saeed will see patient next week unless emergent issues are ongoing. Full code (2) Elevated troponin: Appreciate cardiology recommendations. Patient is not a candidate at this time for catheterization. Troponin appears to be elevated due to pulmonary congestion and pulmonary edema and strain on the heart. No acute changes on EKG. Patient does not report chest pain. TTE significant for left ventricle mild to moderate dilatation. Ejection fraction is 40 to 45%. The basal inferi or and basal to mid inferior lateral anderson are akinetic. The anterior lateral wall is hypokinetic. Moderate concentric left ventricular hypertrophy. Aortic valve sclerosis is mild without significant aortic valvular stenosis. There is severe pulmonary hypertension with PA pressure of 65 mmHg. Elevated left atrial pressures. Patient has chronically elevated troponin. He is biventricular ICD was interrogated yesterday and videotape sales representative recommendation there was nothing wrong with it. Continue diuresis with Lasix 20 mg twice daily. Strict in and outs and daily weight. Restrict free p.o. fluid to 1200 (3) Hypertension: Continue home medicine: Added hydralazine 10 mg p.o. 3 times daily for better control of blood pressure. Amlodipine 10 mg p.o. daily, metoprolol succinate 200 mg p.o. daily, nitroglycerin 0.4 mg sublingual as needed. (4) Diabetes mellitus type 2 with complications: Patient does not take any medication at home for diabetes type 2. Diet controlled. Hemoglobin A1c pending. (5) CKD (chronic kidney disease) stage 4, GFR 15-29 ml/min: Shunt will see next week in his office if no emergent issue occurs. Avoid nephrotoxic agents Continue sodium bicarbonate 650 mg p.o. twice daily (6) Hyperlipidemia: Check lipid panel in a.m., continue atorvastatin 40 mg p.o. daily History of Present Illness Primary Care Provider: Raul Lemos MD Allergies Allergy/AdvReac Type Severity Reaction Status Date / Time morphine AdvReac Severe SOB, Verified 06/01/19 11:30 Respiratory distress Home Medications Home Medications Medication Instructions Recorded Confirmed Type Cranberry Plus Vitamin C 1 cap PO DAILY 01/04/19 06/01/19 History amlodipine 10 mg PO DAILY 01/04/19 06/01/19 History ergocalciferol (vitamin D2) 50,000 unit PO MONTHLY 01/04/19 06/01/19 History [Vitamin D2] ferrous gluconate 324 mg PO BIDM 01/04/19 06/01/19 History flaxseed oil 1,000 mg PO DAILY 01/04/19 06/01/19 History metoprolol succinate 200 mg PO DAILY 01/04/19 06/01/19 History multivitamin 1 tab PO DAILY 01/04/19 06/01/19 History nitroglycerin 0.4 mg SUBLINGUAL DIRECTED PRN 01/04/19 06/01/19 History atorvastatin 40 mg tablet 40 mg PO DAILY #90 tab 02/12/19 06/01/19 Rx sodium bicarbonate 650 mg PO BID 05/03/19 06/01/19 History Past Med/Surg History Medical History Anemia (Chronic) Chronic kidney disease, stage 4 (severe) (Chronic) Hypertension (Chronic) Biventricular ICD (implantable cardioverter-defibrillator) in place (Acute) CAD (coronary artery disease) (Acute) Dyslipidemia (Acute) Right carotid bruit (Acute) Stage III chronic kidney disease (Acute) Vitamin D deficiency (Acute) Pacemaker Chronic back pain (Acute) Pneumonia (Acute) discharged 5 days ago for "walking pneumonia" per pt. Arthritis Hyperlipidemia Kidney stones Myocardial Infarction Surgical History History of left knee replacement (Resolved) History of appendectomy (Acute) History of bowel resection (Acute) hx of colostomy which has since been reversed. History of colostomy (Acute) History of colostomy reversal (Acute) History of cardiac cath Family History Mother Heart disease Brother Rheumatic heart disease Other FH: early Family history non-contributory Social History Preferred Language: Upper Sorbian Communication Ability: Effective Bottom Turning Lathe Tender Required: No Beliefs That Will Affect Care: Restorationist Restorationist Beliefs: Spiritism Current Living Situation: Alone Current Living Situation Comment: daughter is caregiver and stays with him, lives "4 miles away" Other Information That Helps Us Care for You: No Feels Safe at Home: Yes Safety Concerns: Feels Safe At This Time Smoking Status: Former smoker Second Hand Exposure: No ; Hx Alcohol Use: No Hx Substance Use: No Results & Data Vital Signs (Past 12 Hours) Vital Signs Temp Pulse Pulse Resp BP BP Pulse Ox 06/03/19 07:38 36.5 C 65 18 179/75 H 100 06/03/19 04:16 36.7 C 74 24 183/77 H 93 06/03/19 03:45 36.7 C 80 20 165/65 H 91 06/03/19 02:45 36.7 C 72 17 177/72 H 97 06/03/19 01:45 36.7 C 71 18 179/61 H 92 06/03/19 01:15 36.9 C 72 18 169/68 H 94 06/03/19 01:14 70 06/03/19 01:00 36.6 C 70 18 180/74 H 94 06/03/19 00:44 36.7 C 65 20 167/76 H 97 06/02/19 23:45 36.7 C 72 18 168/55 H 95 Code Status & VTE Plan VTE Prophylaxis Plan VTE Prophylaxis will be ordered: No PG Care Time/CCT Total # of Minutes Spent Total Time Spent with Patient: Total time spent is greater than 50% in coordination of care (as documented) at patient's floor/unit and/or counseling patient: (1) Anemia Anemia type: unspecified type Qualified Code(s): D64.9 - Anemia, unspecified
--- NOTE | 2019-06-03 09:20 | Hospitalist Progress Note ---
Date of Service June 03, 2019 Assessment & Plan (1) Anemia: Continue admit to inpatient on telemetry for severe anemia Continue furosemide gluconate 324 mg p.o. twice daily. Given 2 units of blood last night and patient feels much better today. Hemoglobin 9.3 stable. Continue monitoring CBC and H&H Appreciate cardiology recommendations Dr. Guerrero Continue hydralazine 10 mg p.o. 3 times daily titrate up to 25 3 times a day to keep blood pressure in better control. If blood pressure is difficult to control with topical then per cardiology recommendation she was switched to carvedilol 25 mg twice a day as this will have better blood pressure affect.. Monitor vital signs every 4 hours Monitor electrolytes and blood count daily We will check for fecal occult blood DVT prophylaxis SCDs and teds nephrology Dr. Saeed will see patient next week unless emergent issues are ongoing. Full code (2) Elevated troponin: Appreciate cardiology recommendations. Patient is not a candidate at this time for catheterization. Troponin appears to be elevated due to pulmonary congestion and pulmonary edema and strain on the heart. No acute changes on EKG. Patient does not report chest pain. TTE significant for left ventricle mild to moderate dilatation. Ejection fraction is 40 to 45%. The basal inferior and basal to mid inferior lateral anderson are akinetic. The anterior lateral wall is hypokinetic. Moderate concentric left ventricular hypertrophy. Aortic valve sclerosis is mild without significant aortic valvular stenosis. There is severe pulmonary hypertension with PA pressure of 65 mmHg. Elevated left atrial pressures. Patient has chronically elevated troponin. He is biventricular ICD was interrogated yesterday and student services representative recommendation there was nothing wrong with it. Continue diuresis with Lasix 20 mg twice daily. Strict in and outs and daily weight. Restrict free p.o. fluid to 1200ml (3) Hypertension: Continue home medicine: Added hydralazine 10 mg p.o. 3 times daily for better control of blood pressure. Amlodipine 10 mg p.o. daily, metoprolol succinate 200 mg p.o. daily, nitroglycerin 0.4 mg sublingual as needed. (4) Diabetes mellitus type 2 with complications: Patient does not take any medication at home for diabetes type 2. Diet controlled. Hemoglobin A1c pending. (5) CKD (chronic kidney disease) stage 4, GFR 15-29 ml/min: Shunt will see next week in his office if no emergent issue occurs. Avoid nephrotoxic agents Continue sodium bicarbonate 650 mg p.o. twice daily. Creatinine fact function slightly improved from 4-3.8 (6) Hyperlipidemia: Check lipid panel in a.m., continue atorvastatin 40 mg p.o. daily Subjective Patient seen and examined at the bedside. He reports feeling much better after 2 units of blood last night and his hemoglobin is now 9.3. His shortness of breath is improved. Good p.o. intake. Patient denies fever chills chest pain shortness of breath, abdominal pain, frequency, urgency, hemoptysis. Review of Systems Review of Systems: All systems reviewed & are unremarkable except as noted in HPI & below Physical Exam Constitutional: WD/WN, vitals as above + cachectic Eyes: PERRL, conjunctivae normal, anicteric sclerae ENMT: external ear and nose normal, oropharynx normal Neck: trachea midline, no thyromegaly Cardiovascular: Rate/Rhythm: regular rhythm Heart Sounds: normal S1 and normal S2 2+ carotid upstroke, no evidence of bruits, JVD pressure does not appear to be elevated. No sclera are anicteric. Chest (Breasts): normal inspection/palpation of breasts Gastrointestinal (Abdomen): normal bowel sounds, soft, nontender, no hepatosplenomegaly Musculoskeletal: no cyanosis or clubbing, extremities motor strength 5/5 Skin: no rashes, warm and dry Neurologic: patellar DTR's 2+ bilat, sensation intact Psychiatric: A+Ox3, euthymic affect Lymphatic: no cervical or axillary lymphadenopathy Results & Data Vital Signs (Past 12 Hours) Vital Signs Temp Pulse Pulse Resp BP BP Pulse Ox 06/03/19 07:38 36.5 C 65 18 179/75 H 100 06/03/19 04:16 36.7 C 74 24 183/77 H 93 06/03/19 03:45 36.7 C 80 20 165/65 H 91 06/03/19 02:45 36.7 C 72 17 177/72 H 97 06/03/19 01:45 36.7 C 71 18 179/61 H 92 06/03/19 01:15 36.9 C 72 18 169/68 H 94 06/03/19 01:14 70 06/03/19 01:00 36.6 C 70 18 180/74 H 94 06/03/19 00:44 36.7 C 65 20 167/76 H 97 06/02/19 23:45 36.7 C 72 18 168/55 H 95 PG Care Time/CCT Total # of Minutes Spent Total Time Spent with Patient: Total time spent is greater than 50% in coordination of care (as documented) at patient's floor/unit and/or counseling patient: (1) Anemia Anemia type: unspecified type Qualified Code(s): D64.9 - Anemia, unspecified
[2019-06-03] MEDS: DOXYCYCLINE HYCLATE 100 MG in DEXTROSE 5% 100 ML IV SCH (10:19)
--- NOTE | 2019-06-03 11:59 | Cardiology Progress Note ---
Date of Service June 03, 2019 Subjective He feels better this morning after 2 units of packed red blood cells. He denies any chest pain or chest pressure this morning denies any chest tightness sitting up in bed like he had at home. Denies any lightheadedness dizziness presyncope syncope. His appetite is improving. Denies any lower extremity edema. Results & Data Vital Signs (Past 12 Hours) Vital Signs Temp Pulse Pulse Resp BP BP Pulse Ox 06/03/19 11:12 36.7 C 83 20 147/66 H 96 06/03/19 10:23 36.8 C 83 20 147/66 H 96 06/03/19 07:38 36.5 C 65 18 179/75 H 100 06/03/19 04:16 36.7 C 74 24 183/77 H 93 06/03/19 03:45 36.7 C 80 20 165/65 H 91 06/03/19 02:45 36.7 C 72 17 177/72 H 97 06/03/19 01:45 36.7 C 71 18 179/61 H 92 06/03/19 01:15 36.9 C 72 18 169/68 H 94 06/03/19 01:14 70 06/03/19 01:00 36.6 C 70 18 180/74 H 94 06/03/19 00:44 36.7 C 65 20 167/76 H 97 PHYSICAL EXAMINATION: GENERAL: He is awake, alert, oriented x3, looks younger than his stated age. VITAL SIGNS: Her heart rate is 61, respirations 18, blood pressure 149/67, his sat is 97% on room air. HEENT: 2+ carotid upstrokes, no evidence of carotid bruits. Jugular venous pressure did not appear elevated. His sclerae are anicteric. His hearing is diminished. LUNGS: Clear to auscultation bilaterally. No rales, rhonchi or wheezing. HEART: Regular rate and rhythm. No appreciable murmurs, rubs or gallops. ABDOMEN: Soft, nontender, nondistended. Positive bowel sounds. EXTREMITIES: No clubbing, cyanosis or edema. PSYCHIATRIC: His affect appeared appropriate. IMPRESSION: 1. Profound anemia. 2. Angina. 3. Known coronary artery disease. 4. Status post biventricular defibrillator. 5. History of ischemic cardiomyopathy With mild left ventricular dysfunction this admission and multiple regional wall motion abnormalities 6. Hypertension. 7. Severe pulmonary hypertension His anginal symptoms have improved with packed red blood cells. I would keep his hemoglobin greater than 9. He is on 200 mg of Toprol and 10 mg of amlodipine. Hydralazine was started this morning in order to lower his blood pressure he has had a marked improvement from being in the 170 to 180 range systolic now down into the 140s systolic. We will have to watch and see how his pressure does with 10 mg of hydralazine 3 times daily this may need to be uptitrated to 25 mg 3 times daily. If his blood pressure remains difficult to control one option to switch his Toprol to carvedilol 25 mg twice daily as this will have better blood pressure effect. His echocardiogram is consistent with coronary disease his symptoms were also consistent with angina given his anemia and his renal function medical therapy is his only option. His creatinine has improved slightly down from a creatinine of 4 to 3.8. We will continue to follow with you
[2019-06-03] MEDS: cefTRIAXone SODIUM 1,000 MG in DEXTROSE 5% 50 ML IV SCH (22:50)
[2019-06-04 07:11] LABS: Basophils # (auto) 0.01 K/uL (0-0.2); Basophils % (auto) 0.1 %; Eosinophils # (auto) 0.08 K/uL (0-0.5); Eosinophils % (auto) 0.8 %; Hematocrit (blood only) 27.2 % (42-52); Hemoglobin 9.1 g/dL (14.0-18.0); Immature Granulocytes # (auto) 0.04 K/uL (0.00-0.02); Immature Granulocytes % (auto) 0.4 %; Lymphocytes # (auto) 0.87 K/uL (1.2-3.4); Mean Corpuscular Hemoglobin 28.7 pg (25-34); Mean Corpuscular Hgb Conc 33.5 g/dL (32-36); Mean Corpuscular Volume 85.8 fL (80-100); Mean Platelet Volume 9.1 fL (7.4-10.4); Monocytes # (auto) 0.95 K/uL (0.11-0.59); Monocytes % (auto) 9.8 %; Neutrophils # (auto) 7.74 K/uL (1.4-6.5); Neutrophils % (auto) 79.9 %; Platelet Count 141 K/uL (130-400); RDW Coefficient of Variation 15.3 % (11.5-14.5); RDW Standard Deviation 47.8 fL (36.4-46.3); Red Blood Count 3.17 M/uL (4.7-6.1); White Blood Count 9.69 K/uL (4.8-10.8)
[2019-06-04 07:48] LABS: Albumin Level 2.8 gm/dl (3.4-5.0); BUN Creatinine Ratio 14.5 (10-20); Calcium 8.7 mg/dl (8.5-10.1); Creatinine Clr Calc Pharmacy 13.3 ml/min; Est GFR (African American) 14.7; Est GFR (Non-African American) 12.7; Potassium 4.7 mmol/L (3.5-5.1)
[2019-06-04 07:53] LABS: Albumin Globulin Ratio 0.7 (0.9-2); Bilirubin,Total 0.8 mg/dl (0.2-1); Globulin 3.9 gm/dl (2.5-4.0); Total Protein 6.7 gm/dl (6.4-8.2)
[2019-06-04] MEDS: FERROUS GLUCONATE 324 MG TAB PO SCH ×2 (08:54→17:30)
[2019-06-04] MEDS: AMLODIPINE BESYLATE 5 MG TAB PO SCH (08:54)
[2019-06-04] MEDS: MULTIVITAMIN TAB PO SCH (08:54)
[2019-06-04] MEDS: METOPROLOL SUCC 50MG EXT REL TAB PO SCH (08:54)
[2019-06-04] MEDS: HydrALAZINE 10 MG TAB PO SCH ×3 (08:55→20:39)
[2019-06-04] MEDS: FUROSEMIDE 20 MG in SYRINGE 0 ML IV SCH ×2 (08:55→17:30)
[2019-06-04] MEDS: SODIUM BICARBONATE 650 MG TAB PO SCH ×2 (08:55→20:39)
[2019-06-04] MEDS: ATORVASTATIN 40 MG TAB PO SCH (08:55)
--- NOTE | 2019-06-04 13:28 | Cardiology Progress Note ---
Date of Service June 04, 2019 Assessment & Plan (1) Chest pain: His chest pain is probably anginal, however it was probably due to demand supply mismatch due to severe anemia. I would not pursue further. (2) CAD (coronary artery disease): He has known coronary artery disease, he likely had angina but in less that continues with correction of his hemoglobin I would not pursue evaluation. (3) Biventricular ICD (implantable cardioverter-defibrillator) in place: His ICD was recent replaced but seems to be working well. Subjective This is an 88 to-year-old gentleman who has a history of coronary artery disease identified in early 2010 when he had a myocardial infarction. Catheterization at that time demonstrated a chronically occluded right coronary artery and otherwise nonocclusive coronary disease. His ejection fraction however was markedly reduced in the 30% range. 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 He also has a history of pacemaker implantation, this was implanted for second degree heart block (although that had progressed) on August 02, 2005. He paces almost all of the time in the ventricle due to his heart block. He had been treated with medications for left ventricular dysfunction including good doses of lisinopril and metoprolol succinate and an ejection fraction remained 30% or less. He did not have exertional angina, he did have difficulty with exertion which sounds as though it is shortness of breath and it limited his activities. He probably had class III heart failure symptoms although he does not have orthopnea or PND or peripheral edema. He has never had lightheadedness, dizziness, presyncope or syncope. Since he met criteria both for ICD implantation for primary prevention of sudden cardiac as well as biventricular pacing we upgraded his device to a biventricular ICD on 09/21/2012. We did use the original atrial lead. An echocardiogram done in August 2013 demonstrated significant left ventricular improvement with an ejection fraction of about 45%. As of July 29, 2016 brittney t had normalized. An echocardiogram done on June 02, 2019 shows only mild left ventricular dysfunction with ejection fraction 40 to 45%. I saw him in the office on January 01, 2019 and he was doing well, he had no complaints. He then presented January 04, 2019 with a several day history of shortness of breath, much worse on admission, which turned out to be pneumonia. His ICD was very close to replacement time but due to the recent infection we elected to wait, therefore that procedure was done on January 16, 2019 using the chronic leads. He again did well until he presented with anemia in April 2019, and now presents with anginal type chest discomfort also associated with a hemoglobin of 7 (which is now been corrected with transfusions). At the time of my evaluation he was feeling well. He has had no further angina (although has not been very active) in general he feels better now than when he was admitted. He has not had much in the way of heart failure symptoms either before or during this admission. Review of Systems Review of Systems: All systems reviewed & are unremarkable except as noted in HPI & below Physical Exam Physical Exam: Constitutional: Alert, cooperative and in no distress. Pulmonary: Decreased breath sounds on auscultation bilaterally. Cardiac: Regular rhythm with no murmur, gallop or rub. Abdomen: Soft, nontender with normal bowel sounds. Extremities: No edema. Skin: No rash, ecchymoses or petechiae. Results & Data Vital Signs (Past 12 Hours) Vital Signs Temp Pulse Pulse Resp BP Pulse Ox 06/04/19 10:43 36.6 C 63 18 155/70 H 99 06/04/19 08:00 61 06/04/19 07:44 36.8 C 64 19 173/68 H 98 PG Care Time/CCT Total # of Minutes Spent Total Time Spent with Patient: Total time spent is greater than 50% in coordination of care (as documented) at patient's floor/unit and/or counseling patient: (1) CAD (coronary artery disease) Coronary Disease-Associated Artery/Lesion type: [place] artery [place] vs. transplanted heart: [place] heart Associated angina: with other forms of angina Qualified Code(s): I25.118 - Atherosclerotic heart disease of [place] coronary artery with other forms of angina pectoris
--- NOTE | 2019-06-04 16:41 | Nephrology Consultation ---
Date of Consultation June 04, 2019 Assessment & Plan (1) Chronic kidney disease, stage 4 (severe): -- Baseline creatinine 3.4 w/ EGFR 15 cc/min -- Ongoing discussion re: IHD, vascular access creation & quality of life -- Electrolyte balance is acceptable at this time. No acute indication for HD (2) Anemia: -- h/o iron deficiency -- Recently completed ~ 1g IV iron -- Difficult blood match due to antibodies. s/p 2 U PRBC this [facility] lization -- Will recheck iron studies and order FOBT -- h/o colon CA s/p partial colectomy (3) CHF (congestive heart failure): -- Anemia likely contributed to myocardial ischemia and CHF -- I&O's essentially matched w/ Furosemide 20 mg IV BID -- Currently breathing comfortably flat in bed on RA History of Present Illness Reason for Consultation: KAT/CKD, anemia Attending Physician: Elliot Pelletier MD History of Present Illness Mr. Gatica is an 88 year old white male who is seen at the request of Dr. Pelletier for evaluation of KAT/CKD and anemia. Medical records in the EMR were reviewed today and are summarized as follows: Mr. Gatica has stage IV CKD w/ baseline creatinine 3.4 (EGFR 15 cc/min). His renal impairment is on the basis of HTN, microvascular disease and impaired perfusion associated w/ ICM. Dialysis education was completed 04/23. Patient is uncertain whether to pursue IHD due to his frail condition. He is uncertain that it will provide him w/ quality of life. He has not yet undergone AVF creation. Mr. Gatica's medical history is also significant for HTN, colon CA s/p colectomy, NSTEMI 01/21 and ICM s/p AICD. Recently Mr. Gatica has suffered from progressive anemia and fatigue. On 05/02 he was found to have Hgb 7.0. He was referred to [facility] ED but repeat Hgb returned at 8.0 and outpatient management was advised. Laboratory studies re vealed iron deficiency. Mr. Gatica was scheduled for IV iron. He completed 4 infusions. On 06/01/19 Mr. Gatica was to have his 5th infusion. Unfortunately he became SOB and was taken to the ED. Evaluation revealed Hgb 7.0 and + troponin. Mr. Gatica was admitted for blood transfusion and Cardiology evaluation. He has received 2 U PRBC. Cardiology has recommended medical management. Creatinine has risen to 3.9. Allergies Allergy/AdvReac Type Severity Reaction Status Date / Time morphine AdvReac Severe SOB, Verified 06/01/19 11:30 Respiratory distress Home Medications Home Medications Medication Instructions Recorded Confirmed Type Cranberry Plus Vitamin C 1 cap PO DAILY 01/04/19 06/01/19 History amlodipine 10 mg PO DAILY 01/04/19 06/01/19 History ergocalciferol (vitamin D2) 50,000 unit PO MONTHLY 01/04/19 06/01/19 History [Vitamin D2] ferrous gluconate 324 mg PO BIDM 01/04/19 06/01/19 History flaxseed oil 1,000 mg PO DAILY 01/04/19 06/01/19 History metoprolol succinate 200 mg PO DAILY 01/04/19 06/01/19 History multivitamin 1 tab PO DAILY 01/04/19 06/01/19 History nitroglycerin 0.4 mg SUBLINGUAL DIRECTED PRN 01/04/19 06/01/19 History atorvastatin 40 mg tablet 40 mg PO DAILY #90 tab 02/12/19 06/01/19 Rx sodium bicarbonate 650 mg PO BID 05/03/19 06/01/19 History Patient History Medical History Anemia (Chronic) Chronic kidney disease, stage 4 (severe) (Chronic) Hypertension (Chronic) Biventricular ICD (implantable cardioverter-defibrillator) in place (Acute) CAD (coronary artery disease) (Acute) Dyslipidemia (Acute) Right carotid bruit (Acute) Stage III chronic kidney disease (Acute) Vitamin D deficiency (Acute) Pacemaker Chronic back pain (Acute) Pneumonia (Acute) discharged 5 days ago for "walking pneumonia" per pt. Arthritis Hyperlipidemia Kidney stones Myocardial Infarction Surgical History History of left knee replacement (Resolved) History of appendectomy (Acute) History of bowel resection (Acute) hx of colostomy which has since been reversed. History of colostomy (Acute) History of colostomy reversal (Acute) History of cardiac cath Family History Mother Heart disease Brother Rheumatic heart disease Other FH: early Family history non-contributory Social History Preferred Language: [place] Communication Ability: Effective Filter Operator Required: No Beliefs That Will Affect Care: Congregation Congregation Beliefs: Church marital status: Current Living Situation: Alone Current Living Situation Comment: daughter is caregiver and stays with him, lives "4 miles away" Feels Safe at Home: Yes Smoking Status: Former smoker Second Hand Exposure: No ; Hx Alcohol Use: No Hx Substance Use: No Review of Systems Constitutional: + weakness; no fever and no chills Eyes: no worsening vision and no problem reported Ear, Nose, Mouth, Throat: no problem reported Respiratory: no cough and no dyspnea Cardiovascular: no chest pain, no palpitations and no edema Gastrointestinal: no abdominal pain, no nausea, no vomiting and no diarrhea/loose stools Genitourinary: no dysuria, no urinary hesitancy and no hematuria Musculoskeletal: no back pain Integumentary: no rash Physical Exam Constitutional: + frail appearing; not in distress Eyes: PERRL, conjunctivae normal, anicteric sclerae ENMT: external ear and nose normal, oropharynx normal Neck: trachea midline, no thyromegaly Respiratory: normal respiratory effort, lungs clear to auscultation Cardiovascular: Rate/Rhythm: regular rate and regular rhythm trace LE edema Gastrointestinal (Abdomen): normal bowel sounds, soft, nontender, no hepatosplenomegaly Musculoskeletal: Extremities: no cyanosis Skin: no rashes, warm and dry Neurologic: awake; not confused Results & Data Vital Signs (Past 12 Hours) Vital Signs Temp Pulse Pulse Resp BP BP Pulse Ox 06/04/19 16:00 60 06/04/19 15:21 36.5 C 76 18 130/61 97 06/04/19 10:43 36.6 C 63 18 155/70 H 99 06/04/19 08:00 61 06/04/19 07:44 36.8 C 64 19 173/68 H 98 Laboratory Results Laboratory Tests 06/01/19 06/04/19 06/04/19 12:16 06:53 06:53 WBC 9.69 Hgb 9.1 L Hct 27.2 L Plt Count 141 Sodium 137 Potassium 4.7 Chloride 106 Carbon Dioxide 20 L BUN 57 H Creatinine 3.95 H Glucose 87 Urine Color Yellow Urine Appearance Cloudy A Ur Specific [place] 1.013 Urine Protein 3+ H Urine Glucose (UA) Trace H Urine Blood Trace H Urine Nitrite Negative Urine WBC (Auto) >30 H Urine RBC (Auto) 0-4 Urine Bacteria (Auto) Negative Diagnostic Findings 05/24 Echocardiogram: LVEF 40 - 45%, PASP 65 mmHg CXR: mild, asymmetric pulmonary edema PG Care Time/CCT Total # of Minutes Spent Total Time Spent with Patient: Total time spent is greater than 50% in coordination of care (as documented) at patient's floor/unit and/or counseling patient:
--- NOTE | 2019-06-04 17:14 | XRay Report ---
XR chest 2V routine CLINICAL HISTORY: 88 years-old Male presenting with Pulmonary edema. TECHNIQUE: PA and lateral views of the chest were obtained. COMPARISON: 06/01/2019. FINDINGS: Left subclavian implanted cardiac defibrillator with leads in the right atrium, right ventricular ape x, and coronary sinus. Several external leads also noted. Atherosclerosis of the aortic arch. Cardiac silhouettes top normal in size. Pulmonary vascular prominence similar to prior. Significant interval decrease in central and basilar predominant hazy opacity in the right lung as well as improved aerat ion of the left lung base. Trace right and small left pleural effusions persist. No pneumothorax. Deg enerative changes of the thoracic spine. Upper abdomen normal. IMPRESSION: 1. Significant interval reduction in bilateral hazy infiltrates, which previously affected the right lung to a greater degree. 2. Persistent trace right and small left pleural effusions. Electronically signed by: Efra Michel M.D. 06/04/2019 5:13 PM
--- NOTE | 2019-06-04 19:19 | Hospitalist Progress Note ---
Date of Service June 04, 2019 Assessment & Plan (1) Acute respiratory failure with hypoxia: Main cause of symptoms on admission given quick resolution of symptoms with oxygen. Hypoxia now resolved. Multifactorial - secondary to anemia, pulmonary edema, possible pneumonia. Given quick deterioration over 1 day prior to admission either he had AL -> new pulmonary edema -> hypoxia vs. PNA -> hypoxia vs. acute blood loss -> hypoxia Given only mild troponin elevation makes AL less likely. Anemia not particularly acute therefore less likely to cause symptoms alone. Mild WBC with similar symptoms on previous admission and given lack of definitive alternative explanation will treat for pneumonia. (2) Community acquired pneumonia: Questionable diagnosis but will treat for 7 days given above explanation. Improvement with ceftriaxone - will continue typical bacterial coverage only. Repeat CXR ordered to reassess. (3) Pulmonary edema: Suspect hypervolemic status and pulmonary edema due to cardiac rather than renal failure. Multiple akinetic anderson on echocardiogram - non acute. Given improvement with hypoxia, I&Os stable and slight increase in Cr today suspect reaching euvolemic status and likely can be switched to PO lasix either tomorrow or Tuesday, pending Cr level in AM. Repeat CXR today to reassess pulmonary edema as chest clear to auscultation. (4) CHF (congestive heart failure): with BiV ICD in place. 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 No ACEi due to CKD stage IV. Continue lasix 20mg IV BID. Plan to switch tomorrow or Tuesday as per above. On no diuretics as outpatient. (5) CAD (coronary artery disease): No ASA (not on outpatient med list), started and stopped during last admission in January due to acute anemia with FOB +ve Continue BB, atorvastatin No ACEi due to CKD IV (6) Elevated troponin: Appreciate cardiology recommendations. Suspected demand-ischemia in setting of anemia rather than ACS. Not a candidate at this time for catheterization given CKD and not on dialysis. Medical management for CAD as below. (7) CKD (chronic kidney disease) stage 4, GFR 15-29 ml/min: Avoid nephrotoxic agents Continue sodium bicarbonate 650 mg p.o. twice daily. Cr stable on lasix IV 20mg BID. On no diuretics as outpatient. Weight decreased 167 - 164 lb this admission I&O -435 ml yesterday, euvolemic during admission (8) Anemia: Main reason for admission from labs - sent by nephrology Appears to be stable s/p 2 unit PRBCs (similar requirement after given ASA, IV steroids during admission in January, FOB +ve at that time and recommended O/P GI workup). Stable as outpatient up until now. FOB -ve on this admission. No other cause found except CKD. Will consult nephrology to help with ongoing management of this as likely to need ongoing iron transfusions and EPO as outpatient. Recommend O/P GI referral if not had previously despite FOB -ve here. Continue ferrous gluconate 324 mg p.o. twice daily. (9) Hypertension: Continue home medicine: Amlodipine 10 mg p.o. daily, metoprolol succinate 200 mg p.o. daily, nitroglycerin 0.4 mg sublingual as needed. Improved after adding hydralazine 10 mg PO TID (10) Hyperlipidemia: continue atorvastatin 40 mg p.o. daily (11) Acute UTI: Ruled out. Urine culture negative. No further antibiotics required to cover UTI (12) Diabetes mellitus type 2 with complications: Unclear diagnosis as FBS 87 and HbA1C 5.1. F/U outpatient. (13) DVT prophylaxis: SCDs only due to acute on chronic anemia. Consider chemical prophylaxis if prolonged stay and anemia stable. (14) Discharge planning issues: Code - full Dispo - PT/OT to assist with d/c planning Subjective Patient feels he is back to his normal self. No further chest pain. Revisited history with the patient and his daughter. Admission 3 days prior due to hemoglobin 7 on outpatient labs from his executive steward. However patient also noted worsening shortness of breath and overall fatigue over a 1 day history prior to admission. Also noticed constant cough as per ER notes. His daughter reports rapid resolution of his symptoms in the ER prior to blood product transfusion after oxygen given. She reports a similar presentation in January of this year where he was diagnosed with pneumonia. He denies any ongoing dizziness or shortness of breath at rest. He continues have longer-standing shortness of breath on exertion. Review of Systems Review of Systems: All systems reviewed & are unremarkable except as noted in HPI & below Physical Exam Constitutional: WD/WN, vitals as above Eyes: + anicteric sclerae ENMT: external ear and nose normal, oropharynx normal Neck: trachea midline, no thyromegaly Respiratory: normal respiratory effort, lungs clear to auscultation Auscultation: + diminished lung sounds (mild bibasal); no crackles, no rales and no wheezes Cardiovascular: RRR, no murmur, no edema Gastrointestinal (Abdomen): normal bowel sounds, soft, nontender, no hepatosplenomegaly Psychiatric: A+Ox3, euthymic affect Results & Data Vital Signs (Past 12 Hours) Vital Signs Temp Pulse Pulse Resp BP BP Pulse Ox 06/04/19 16:00 60 06/04/19 15:21 97.7 F 76 18 130/61 97 06/04/19 10:43 97.9 F 63 18 155/70 H 99 06/04/19 08:00 61 06/04/19 07:44 98.2 F 64 19 173/68 H 98 PG Care Time/CCT Total # of Minutes Spent Total Time Spent with Patient: Total time spent is greater than 50% in coordination of care (as documented) at patient's floor/unit and/or counseling patient: (1) Anemia Anemia type: unspecified type Qualified Code(s): D64.9 - Anemia, unspecified
[2019-06-04] MEDS: cefTRIAXone SODIUM 1,000 MG in DEXTROSE 5% 50 ML IV SCH (23:45)
[2019-06-05 06:27] LABS: Hemoglobin 9.3 g/dL (14.0-18.0); Mean Corpuscular Hemoglobin 28.7 pg (25-34); Mean Corpuscular Hgb Conc 33.2 g/dL (32-36); Mean Corpuscular Volume 86.4 fL (80-100); Mean Platelet Volume 9.5 fL (7.4-10.4); Platelet Count 145 K/uL (130-400); RDW Coefficient of Variation 15.2 % (11.5-14.5); RDW Standard Deviation 47.8 fL (36.4-46.3); Red Blood Count 3.24 M/uL (4.7-6.1); White Blood Count 6.55 K/uL (4.8-10.8)
[2019-06-05 06:58] LABS: BUN Creatinine Ratio 16.3 (10-20); Calcium 8.4 mg/dl (8.5-10.1); Creatinine Clr Calc Pharmacy 13.4 ml/min; Est GFR (African American) 14.9; Est GFR (Non-African American) 12.8; Potassium 4.3 mmol/L (3.5-5.1)
[2019-06-05 07:13] LABS: Ferritin 1314.5 ng/ml (8-388)
[2019-06-05] MEDS: FERROUS GLUCONATE 324 MG TAB PO SCH ×2 (09:10→17:58)
[2019-06-05] MEDS: HydrALAZINE 10 MG TAB PO SCH ×3 (09:59→20:19)
[2019-06-05] MEDS: SODIUM BICARBONATE 650 MG TAB PO SCH ×2 (10:00→20:19)
[2019-06-05] MEDS: ATORVASTATIN 40 MG TAB PO SCH (10:00)
[2019-06-05] MEDS: AMLODIPINE BESYLATE 5 MG TAB PO SCH (10:00)
[2019-06-05] MEDS: MULTIVITAMIN TAB PO SCH (10:00)
[2019-06-05] MEDS: METOPROLOL SUCC 50MG EXT REL TAB PO SCH (10:01)
--- NOTE | 2019-06-05 10:28 | Nephrology Progress Note ---
Date of Service June 05, 2019 Assessment & Plan (1) Chronic kidney disease, stage 4 (severe): -- Baseline creatinine 3.4 w/ EGFR 15 cc/min -- Ongoing discussion re: IHD, vascular access creation & quality of life -- Electrolyte balance is acceptable at this time. No acute indication for HD -- If discharge is anticipated, Mr. Gatica already has Nephrology follow up scheduled for ~ 2 weeks (2) Anemia: -- h/o iron deficiency -- Recently completed ~ 1g IV iron -- Difficult blood match due to antibodies. s/p 2 U PRBC this hospitalization -- Iron saturation 10% w/ ferritin > 1200. FOBT negative x1 today -- h/o colon CA s/p partial colectomy (3) CHF (congestive heart failure): -- Anemia likely contributed to myocardial ischemia and CHF -- I&O's essentially matched w/ Furosemide 20 mg IV BID -- Currently breathing comfortably flat in bed on RA Subjective Mr. Gatica was seen & examined in his hospital room this morning. His daughter was present at bedside. Mr. Gtaica is breathing comfortably on room air. He denies abdominal pain, melena or hematochezia. Review of Systems 2 Constitutional: + weakness; no fever and no chills Eyes: no worsening vision and no problem reported Ear, Nose, Mouth, Throat: no problem reported Respiratory: no cough and no dyspnea Cardiovascular: no chest pain, no palpitations and no edema Gastrointestinal: no abdominal pain, no nausea, no vomiting and no diarrhea/loose stools Genitourinary: no dysuria, no urinary hesitancy and no hematuria Musculoskeletal: no back pain Integumentary: no rash Neurologic: no falls, no dizziness and no confusion Physical Exam Constitutional: + frail appearing; not in distress Eyes: PERRL, conjunctivae normal, anicteric sclerae ENMT: external ear and nose normal, oropharynx normal Neck: trachea midline, no thyromegaly Respiratory: normal respiratory effort, lungs clear to auscultation Cardiovascular: Rate/Rhythm: regular rate and regular rhythm Gastrointestinal (Abdomen): normal bowel sounds, soft, nontender, no hepatosplenomegaly Musculoskeletal: Extremities: no cyanosis Skin: no rashes, warm and dry Neurologic: awake; not confused Results & Data Vital Signs (Past 12 Hours) Vital Signs Temp Pulse Resp BP Pulse Ox 06/05/19 08:10 36.4 C L 60 11 L 163/70 H 95 06/04/19 23:36 36.6 C 59 L 18 163/74 H 96 Laboratory Results Laboratory Tests 06/05/19 06/05/19 06:07 06:07 WBC 6.55 Hgb 9.3 L Hct 28.0 L Plt Count 145 Sodium 138 Potassium 4.3 Chloride 106 Carbon Dioxide 21 BUN 64 H Creatinine 3.92 H Glucose 80 Calcium 8.4 L PG Care Time/CCT Total # of Minutes Spent Total Time Spent with Patient: Total time spent is greater than 50% in coordination of care (as documented) at patient's floor/unit and/or counseling patient:
--- NOTE | 2019-06-05 14:49 | Hospitalist Progress Note ---
Date of Service June 05, 2019 Assessment & Plan (1) Acute respiratory failure with hypoxia: Main cause of symptoms on admission given quick resolution of symptoms with oxygen. Suspected anemia causing demand ischemia leading to CHF and pulmonary edema. CXRs consistent with this. (2) Community acquired pneumonia: CXR quick resolution fits with pulmonary edema as sole cause. Will d/c antibiotics at this time. Observe overnight. Anticipate discharge home tomorrow. (3) Pulmonary edema: Secondary to acute CHF exacerbation from anemia. Will d/c lasix as hypovolemic on exam and increasing BUN. On no lasix as outpatient therefore do not suspect he will need to go back on this. Multiple akinetic anderson on echocardiogram - non acute. (4) CHF (congestive heart failure): Acute on chronic with BiV ICD in place. 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 No ACEi due to CKD stage IV. Stop lasix as above. On no diuretics as outpatient. (5) CAD (coronary artery disease): No ASA (not on outpatient med list), started and stopped during last admission in January due to acute anemia with FOB +ve. FOB -ve on this admission but no outpatient GI workup previously. Will defer antiplatelet management to cardiology. Continue BB, atorvastatin No ACEi due to CKD IV (6) Elevated troponin: Appreciate cardiology recommendations. Suspected demand-ischemia in setting of anemia rather than ACS. Not a candidate at this time for catheterization given CKD and not on dialysis. Medical management for CAD as below. (7) CKD (chronic kidney disease) stage 4, GFR 15-29 ml/min: Avoid nephrotoxic agents Continue sodium bicarbonate 650 mg p.o. twice daily. Appreciate nephrology management (8) Anemia: Main reason for admission from labs - sent by nephrology Appears to be stable s/p 2 unit PRBCs (similar requirement after given ASA, IV steroids during admission in January, FOB +ve at that time and recommended O/P GI workup). Stable as outpatient up until now. FOB -ve on this admission, repeat pending. No other cause found except CKD. Recommend O/P GI referral - discussed with his daughter Continue ferrous gluconate 324 mg p.o. twice daily. (9) Hypertension: Continue home medicine: Amlodipine 10 mg p.o. daily, metoprolol succinate 200 mg p.o. daily, nitroglycerin 0.4 mg sublingual as needed. Improved after adding hydralazine 10 mg PO TID (10) Acute UTI: Ruled out. Urine culture negative. No further antibiotics required to cover UTI (11) Diabetes mellitus type 2 with complications: Unclear diagnosis as FBS 87 and HbA1C 5.1. F/U outpatient. (12) DVT prophylaxis: SCDs only due to acute on chronic anemia. Plan on discharge home tomorrow now off IV lasix (13) Discharge planning issues: Code - full Dispo - PT/OT to assist with d/c planning, plan for discharge home tomorrow if stable off IV lasix Subjective Patient denies shortness of breath or chest pain. Feeling very tired after working with physical and occupational therapy. Cleared to go home from PT/OT. Mouth dry Review of Systems Review of Systems: All systems reviewed & are unremarkable except as noted in HPI & below Physical Exam Constitutional: WD/WN, vitals as above Eyes: + anicteric sclerae ENMT: external ear and nose normal, oropharynx normal Neck: trachea midline, no thyromegaly Respiratory: normal respiratory effort, lungs clear to auscultation Auscultation: + diminished lung sounds (mild bibasal); no crackles, no rales and no wheezes Cardiovascular: RRR, no murmur, no edema Gastrointestinal (Abdomen): normal bowel sounds, soft, nontender, no hepatosplenomegaly Psychiatric: A+Ox3, euthymic affect Results & Data Vital Signs (Past 12 Hours) Vital Signs Temp Pulse Resp BP Pulse Ox 06/05/19 11:24 97.5 F L 61 14 134/73 100 06/05/19 08:10 97.5 F L 60 11 L 163/70 H 95 PG Care Time/CCT Total # of Minutes Spent Total Time Spent with Patient: Total time spent is greater than 50% in coordination of care (as documented) at patient's floor/unit and/or counseling patient: (1) Community acquired pneumonia Laterality: unspecified laterality Qualified Code(s): J18.9 - Pneumonia, unspecified organism (2) Pulmonary edema Chronicity: acute Qualified Code(s): J81.0 - Acute pulmonary edema (3) CHF (congestive heart failure) Heart failure type: combined systolic and diastolic Heart failure chronicity: acute on chronic Qualified Code(s): I50.43 - Acute on chronic combined systolic (congestive) and diastolic (congestive) heart failure (4) CAD (coronary artery disease) Coronary Disease-Associated Artery/Lesion type: [place] artery [place] vs. transplanted heart: [place] heart Associated angina: with other forms of angina Qualified Code(s): I25.118 - Atherosclerotic heart disease of [place] coronary artery with other forms of angina pectoris (5) Anemia Anemia type: unspecified type Qualified Code(s): D64.9 - Anemia, unspecified (6) Hypertension Hypertension type: essential hypertension Qualified Code(s): I10 - Essential (primary) hypertension
[2019-06-05] MEDS ORDERED: CLOPIDOGREL BISULFATE 75 MG TAB PO ONE (18:14)
[2019-06-06] MEDS: SODIUM BICARBONATE 650 MG TAB PO SCH (08:31)
[2019-06-06] MEDS: MULTIVITAMIN TAB PO SCH (08:31)
[2019-06-06] MEDS: FERROUS GLUCONATE 324 MG TAB PO SCH (08:32)
[2019-06-06] MEDS: METOPROLOL SUCC 50MG EXT REL TAB PO SCH (08:32)
[2019-06-06] MEDS: HydrALAZINE 10 MG TAB PO SCH ×2 (08:32→15:50)
[2019-06-06] MEDS: AMLODIPINE BESYLATE 5 MG TAB PO SCH (08:33)
[2019-06-06] MEDS: ATORVASTATIN 40 MG TAB PO SCH (08:33)
[2019-06-06] MEDS ORDERED: CLOPIDOGREL BISULFATE 75 MG TAB PO SCH (09:00)
--- NOTE | 2019-06-06 10:27 | Nephrology Progress Note ---
Date of Service June 06, 2019 Assessment & Plan (1) Chronic kidney disease, stage 4 (severe): -- Baseline creatinine 3.4 w/ EGFR 15 cc/min -- Ongoing discussion re: IHD, vascular access creation & quality of life -- Electrolyte balance is acceptable at this time. No acute indication for HD -- If discharge is anticipated, Mr. Gatica already has Nephrology follow up scheduled for ~ 2 weeks (2) Anemia: -- h/o iron deficiency -- Recently completed ~ 1g IV iron -- Difficult blood match due to antibodies. s/p 2 U PRBC this hospitalization -- Iron saturation 10% w/ ferritin > 1200. FOBT negative x1 today -- h/o colon CA s/p partial colectomy -- Hgb was stable overnight (3) CHF (congestive heart failure): -- Anemia likely contributed to myocardial ischemia and CHF -- I&O's essentially matched w/ Furosemide 20 mg IV BID -- Currently breathing comfortably on RA Subjective Mr. Gatica was seen & examined in his hospital room this morning. He denies overt blood loss. He is breathing comfortably on room air. He is anxious to return home. Review of Systems Constitutional: + weakness; no fever and no chills Eyes: no worsening vision and no problem reported Ear, Nose, Mouth, Throat: no problem reported Respiratory: no cough and no dyspnea Cardiovascular: no chest pain, no palpitations and no edema Gastrointestinal: no abdominal pain, no nausea, no vomiting and no diarrhea/loose stools Genitourinary: no dysuria, no urinary hesitancy and no hematuria Musculoskeletal: no back pain Integumentary: no rash Neurologic: no falls, no dizziness and no confusion Physical Exam Constitutional: + frail appearing; not in distress Eyes: PERRL, conjunctivae normal, anicteric sclerae ENMT: external ear and nose normal, oropharynx normal Neck: trachea midline, no thyromegaly Respiratory: normal respiratory effort, lungs clear to auscultation Cardiovascular: Rate/Rhythm: regular rate and regular rhythm Gastrointestinal (Abdomen): normal bowel sounds, soft, nontender, no hepatosplenomegaly Musculoskeletal: Extremities: no cyanosis Skin: no rashes, warm and dry Neurologic: awake; not confused Results & Data Vital Signs (Past 12 Hours) Vital Signs Temp Pulse Resp BP BP Pulse Ox 06/06/19 07:13 36.8 C 59 L 18 154/60 H 96 06/05/19 23:20 36.4 C L 61 18 158/68 H 98 Laboratory Results Laboratory Tests 06/05/19 06/05/19 06:07 06:07 WBC 6.55 Hgb 9.3 L Hct 28.0 L Plt Count 145 Sodium 138 Potassium 4.3 Chloride 106 Carbon Dioxide 21 BUN 64 H Creatinine 3.92 H Glucose 80 Calcium 8.4 L PG Care Time/CCT Total # of Minutes Spent Total Time Spent with Patient: Total time spent is greater than 50% in coordination of care (as documented) at patient's floor/unit and/or counseling patient: (1) CHF (congestive heart failure) Heart failure type: combined systolic and diastolic Heart failure chronicity: acute on chronic Qualified Code(s): I50.43 - Acute on chronic combined systolic (congestive) and diastolic (congestive) heart failure
[2019-06-06 14:13] LABS: Hematocrit (blood only) 28.7 % (42-52); Hemoglobin 9.4 g/dL (14.0-18.0); Mean Corpuscular Hemoglobin 28.1 pg (25-34); Mean Corpuscular Hgb Conc 32.8 g/dL (32-36); Mean Corpuscular Volume 85.9 fL (80-100); Mean Platelet Volume 9.4 fL (7.4-10.4); Platelet Count 187 K/uL (130-400); RDW Coefficient of Variation 15.2 % (11.5-14.5); RDW Standard Deviation 47.6 fL (36.4-46.3); Red Blood Count 3.34 M/uL (4.7-6.1); White Blood Count 6.16 K/uL (4.8-10.8)
[2019-06-06 14:38] LABS: BUN Creatinine Ratio 16.3 (10-20); Calcium 8.7 mg/dl (8.5-10.1); Creatinine Clr Calc Pharmacy 13.1 ml/min; Est GFR (African American) 14.4; Est GFR (Non-African American) 12.4; Potassium 4.8 mmol/L (3.5-5.1)
--- NOTE | 2019-06-12 14:13 | Discharge Summary ---
Date of Service June 06, 2019 Admission HPI Per Admitting Provider Patient is a 88 years old male with past medical history of CKD stage IV, hypertension, biventricular ICD, coronary artery disease, dyslipidemia, right carotid bruit, chronically elevated troponin, hyperlipidemia, and NSTEMI in the past, who was sent by his renal specialist Dr. Saeed to be seen in the emergency room because of very low hemoglobin of 7 and severe anemia. Patient also expressed a generalized weakness that has been ongoing for some time. Patient denies fever chills chest pain shortness of breath abdominal pain frequency urgency hemoptysis hematemesis hematuria dysuria. Patient is still not on hemodialysis. Patient has antibodies in his blood which is difficult for blood transfusion. Blood transfusion was not immediately given in the ER due to necessity to get appropriate blood. Chest x-rays shows: Bilateral perihilar hazy 80s airspace opacities with interstitial thickening. There may be trace bilateral pleural effusion. Findings likely represent asymmetric pulmonary edema. Viable cell count of 10.39, hemoglobin 7, hematocrit 21.8, platelets are 197, PT 10.4, INR 1, APTT 27.3. Sodium 140, potassium 4.9, chloride 110, BUN 46, creatinine 4.11, GFR 12.1, lactic acid 1.69 magnesium 2.5. Decision was made to admit patient to PCU on telemetry for a blood transfusion and management of congestive heart failure with pulmonary edema and also for troponin anemia which appears to be due to pulmonary congestion and cardiac strain. Admission Exam Per Admitting Provider Constitutional: WD/WN, vitals as above well developed and + cachectic Eyes: PERRL, conjunctivae normal, anicteric sclerae Pale sclera ENMT: external ear and nose normal, oropharynx normal Respiratory: normal respiratory effort, lungs clear to auscultation Cardiovascular: Heart Sounds: normal S1 and normal S2 Palpation: + palpable S3 Vessels: dorsalis pedis pulses present Extremities: + pedal edema Gastrointestinal (Abdomen): normal bowel sounds, soft, nontender, no hepatosplenomegaly Musculoskeletal: no cyanosis or clubbing, extremities motor strength 5/5 Skin: no rashes, warm and dry Neurologic: patellar DTR's 2+ bilat, sensation intact Psychiatric: A+Ox3, euthymic affect Lymphatic: no cervical or axillary lymphadenopathy Principal Diagnosis Anemia secondary to CKD Demand-ischemia Acute systolic congestive heart failure with pulmonary edema Acute hypoxic respiratory failure Discharge Exam Constitutional WD/WN, vitals as above Eyes + anicteric sclerae ENMT external ear and nose normal, oropharynx normal Neck trachea midline, no thyromegaly Respiratory normal respiratory effort, lungs clear to auscultation Auscultation: + diminished lung sounds (mild bibasal); no crackles, no rales and no wheezes Cardiovascular RRR, no murmur, no edema Gastrointestinal (Abdomen) normal bowel sounds, soft, nontender, no hepatosplenomegaly Psychiatric A+Ox3, euthymic affect Discharge Data Allergies Allergy/AdvReac Type Severity Reaction Status Date / Time morphine AdvReac Severe SOB, Verified 06/01/19 11:30 Respiratory distress Consultations 06/01/19 12:27 ED Decision to Admit Stat 06/01/19 22:08 Consult Cardiology Routine 06/04/19 15:25 Consult Nephrology Routine Hospital Course (1) Acute respiratory failure with hypoxia: Main cause of symptoms on admission given quick resolution of symptoms with oxygen. Suspected anemia causing demand ischemia leading to CHF and pulmonary edema. CXRs consistent with this. (2) Pulmonary edema: Secondary to acute CHF exacerbation from anemia. Discontinued lasix on discharge. Multiple akinetic anderson on echocardiogram - non acute. (3) CHF (congestive heart failure): Acute on chronic with BiV ICD in place. 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 No ACEi due to CKD stage IV. Stop lasix as above. On no diuretics as outpatient. (4) CAD (coronary artery disease): No ASA (not on outpatient med list), started and stopped during last admission in January due to acute anemia with FOB +ve. FOB -ve on this admission but no outpatient GI workup previously. Discussed wtih Dr Sterling and will start on clopidogrel. Hgb stable overnight on this. Continue BB, atorvastatin No ACEi due to CKD IV (5) Elevated troponin: Appreciate cardiology recommendations. Suspected demand-ischemia in setting of anemia rather than ACS. Not a candidate at this time for catheterization given CKD and not on dialysis. Medical management for CAD as below. (6) CKD (chronic kidney disease) stage 4, GFR 15-29 ml/min: Avoid nephrotoxic agents Continue sodium bicarbonate 650 mg p.o. twice daily. Appreciate nephrology management (7) Anemia: Main reason for admission from labs - sent by nephrology Appears to be stable s/p 2 unit PRBCs (similar requirement after given ASA, IV steroids during admission in January, FOB +ve at that time and recommended O/P GI workup). Stable as outpatient up until now. FOB -ve on this admission, repeat pending. No other cause found except CKD. Recommend O/P GI referral - discussed with his daughter Continue ferrous gluconate 324 mg p.o. twice daily. (8) Hypertension: Continue home medicine: Amlodipine 10 mg p.o. daily, metoprolol succinate 200 mg p.o. daily, nitroglycerin 0.4 mg sublingual as needed. Improved after adding hydralazine 10 mg PO TID (9) Acute UTI: Ruled out. Urine culture negative. No further antibiotics required to cover UTI (10) Diabetes mellitus type 2 with complications: Unclear diagnosis as FBS 87 and HbA1C 5.1. F/U outpatient. Total Time Total Time Spent Total Time Spent (In Minutes): 40 Total Time Includes: Examination of the Patient, Discharge Planning, Medication Reconciliation and Communication With Other Providers Discharge Plan Discharge Items Patient Disposition: Home - Self-Care Reason For Visit: SEVERE ANAMIA Discharge Diagnosis: Anemia secondary to CKD Cardiac Demand-ischemia Acute systolic congestive heart failure with pulmonary edema Acute hypoxic respiratory failure Activity: Resume your previous activity Non-emergency contact: Primary Care Provider and Wire Spinner Call non-emergency contact if: you have any medication questions and your symptoms worsen Follow-up/Referrals: Paul Saeed MD [Physician] - Antony Sterling MD [Physician] - Raul Lemos MD [Primary Care Provider] - 06/13/19 11:00 am (Please, follow up at Dr. Moses's office with her associate, Mari HOLT, on TuesdayJune 13 at 11:00 am. THEY WILL CHECK YOUR LABS (CBC) DURING THIS VISIT, TOO. *If you need to change this appointment, call the office at [phone].) Diet: Heart Healthy and Low Sodium (2gm) Addtl Attending Provider Instructions: You were diagnosed with anemia. This likely caused demand-ischemia (low oxygen delivery) to your heart subsequently causing acute on chronic congestive heart failure and pulmonary edema (fluid on your lungs) all contributing towards low oxygen levels on arrival making you short of breath with chest pain. For this you were treated with diuretics (lasix) and blood transfusions. No blood was found on stool samples but given this has previous been an issue recommend discussing referral for gastroenterology with your primary care provider. You were initial covered for possible urine tract infection and pneumonia however given the rest of your presentation and subsequent cultures these were felt to no longer be required. Plavix was started due to ongoing concern for coronary artery disease causing your heart failure given previous intolerance to aspirin causing GI bleed. Repeat CBC in approximately 7 days. Please follow up with your appraiser land within the next 4 weeks. You were also noted to have a high blood pressure which improved with hydralazine as prescribed. Please follow up with your PCP regarding this. Pending Studies at Discharge: No Studies:: CBC in 1 week Stand-Alone Forms: My [facility] Medications and DC Order Prescriptions: New hydralazine 10 mg Tablet 10 mg PO TID Qty: 90 RF: 0 clopidogrel 75 mg Tablet 75 mg PO QAM Qty: 30 RF: 0 Continued atorvastatin 40 mg tablet 40 mg PO DAILY Qty: 90 RF: 3 metoprolol succinate 200 mg tablet extended release 24 hr 200 mg PO DAILY RF: 0 amlodipine 10 mg Tablet 10 mg PO DAILY RF: 0 Cranberry Plus Vitamin C 140-100 mg Capsule 1 cap PO DAILY RF: 0 ergocalciferol (vitamin D2) [Vitamin D2] 50,000 unit Capsule 50,000 unit PO MONTHLY RF: 0 ferrous gluconate 324 mg (37.5 mg iron) Tablet 324 mg PO BIDM RF: 0 flaxseed oil 1,000 mg Capsule 1,000 mg PO DAILY RF: 0 multivitamin Tablet 1 tab PO DAILY RF: 0 nitroglycerin 0.4 mg tablet, sublingual 0.4 mg sublingual DIRECTED PRN (Reason: Chest Pain) RF: 0 sodium bicarbonate 650 mg tablet 650 mg PO BID RF: 0 Discharge Orders: Discharge Order (Routine); Ordered 06/06/19 Ordered By: Elliot Pelletier Admission Data Admit Date/Time: 06/01/19 14:41 Attending Provider: Elliot Pelletier Admit Provider: Chapito Ly Primary Care Provider: Raul Lemos V. Other Providers: Chapito Ly ; Antony Sterling ; Paul Saeed Other Interventions: Discharge Summary Assessment (RN) Last Done: 06/06/19 16:47 DC Date/Time DO NOT enter until pt leaves facility: 06/06/19 17:50
== END 2019-06-06 17:50 | disposition home or self-care (01) | DRG 811 ==
LOC: ED 10:24 → 2S 14:41 → SUATTDRO 14:41 → 2S 15:31 → 4W 06-04 18:49